=== PATIENT | male | born 1935 | race Caucasian/White ===

== ENCOUNTER 2017-04-29 12:08 | Inpatient (IN) ==
[2017-04-29] MEDS ORDERED: CEFEPIME 1 GM in NS 100 ML IV ONE (13:51)
[2017-04-29] MEDS ORDERED: NS 1,000 ML IV ONE (13:51)
--- NOTE | 2017-04-29 14:04 | Emergency Department Report ---
Male Urogenital HPI - General Chief complaint: Medical Emergency Stated complaint: testical pain Time Seen by Provider: 04/29/17 13:31 Source: family, EMS, RN notes reviewed, old records reviewed Mode of arrival: EMS Limitations: altered mental status (S/p CVA) - History of Present Illness HPI Narrative: 81yo man presented to the ER for testicular pain and bleeding. Pt is s/p CVA; has been declining recently and c/o testicular pain. Today, KRISTINE panicked when she saw a large, spreading 'pool of blood' under pt. She called EMS and pt was transported to the ER for evaluation. WOP and daughter both state that pt has become increasing more difficult to understand over the last few days. MD Complaint: testicle pain, testicle swelling Onset (ago): day(s) Duration: constant Location: left testicle Severity: severe Quality: sharp Relieving factors: none Exacerbating factors: movement - Related Data Sexually active: No Home Medications Medication Instructions Recorded Confirmed Docusate Calcium 240 mg PO BID #0 12/07/11 04/29/17 Omeprazole Magnesium [Prilosec Otc] 20 mg PO DAILY #0 12/07/11 04/29/17 Calcium Polycarbophil [Fiber Lax] 625 mg PO BID #0 04/16/12 04/29/17 Triamterene/Hydrochlorothiazid 2 tab PO DAILY #0 04/16/12 04/29/17 [Maxzide 37.5 mg-25 mg Tablet] Warfarin Sodium 2 mg PO 5XW #0 12/20/15 04/29/17 Warfarin Sodium 3 mg PO 2XW #0 12/20/15 04/29/17 Amlodipine [Norvasc] 10 mg PO DAILY 04/29/17 04/29/17 Ascorbic Acid [Vitamin C] 1,000 mg PO DAILY 04/29/17 04/29/17 Calcium 500 + D [Os Jose-D 500] 2 tab PO DAILY 04/29/17 04/29/17 Lysine HCl [l-Lysine] 500 mg PO 4XW 04/29/17 04/29/17 Potassium Chloride 10 meq PO DAILY 04/29/17 04/29/17 Tramadol HCl [Ultram] 50 mg PO BID 04/29/17 04/29/17 Allergies Allergy/AdvReac Type Severity Reaction Status Date / Time lisinopril Allergy Unknown Verified 12/20/15 18:19 beclomethasone dipropionate Allergy Unknown Uncoded 12/20/15 18:19 benazepril HCl Allergy Unknown Uncoded 12/20/15 18:19 [place] nuts Allergy Unknown Uncoded 12/20/15 18:19 Chlorpheniramine Polistirex Allergy Unknown Uncoded 12/20/15 18:19 Hydrocodone Polistrx Allergy Unknown Uncoded 12/20/15 18:19 pseudoephedrine HCl Allergy Unknown Uncoded 12/20/15 18:19 tamsulosin HCl Allergy Unknown Uncoded 12/20/15 18:19 Review of Systems Limitations: ROS unobtainable due to patient's medical condition Genitourinary: Reports: as per HPI, testicular pain. Denies: urgency, dysuria, frequency, hematuria, discharge, testicular mass, genital lesions PFSH Patient Stated Medical History Cerebrovascular Accident Yes Hearing Loss Yes Cardiac Arrhythmia Yes: A-FIB Hypertension Yes Clotting Problems Yes: ON COUMADIN Medical History Updates: Hypertension. Constipation. GERD. Atrial fibrillation - Social History Smoking status: Unknown if ever smoked Physical Exam - Limitations Limitations: no limitations - General General appearance: alert, in distress (with movement), cachectic - Normal Exams: Head:: Normocephalic without trauma Eyes:: Pupils are PERRLA w/ EOMI, No scleral icterus, irritation, or foreign bodies noted ENMT:: No facial trauma, nasal exudates, pharyngeal erythema, or exudates are noted Chest/Respirations:: Clear all reddy, with good airflow Cardiovascular:: Regular rate and rhythm, without murmur or gallop Abdomen:: Bowel sounds positive, soft, non-tender Lymphatic:: No lymphadenopathy Musculoskeletal:: No tenderness, or deformity noted Integumentary:: No rashes, hives, or bruising noted Neurological:: Patient is alert - exam: Present: testicular tenderness, scrotal swelling, normal testicular lie , other (1cm defect in pts posterolateral left scrotum.). Absent: normal inspection, urethral discharge - Psychiatric Psychiatric exam: Present: flat affect, other (Pt is cooperative, but nonverbal ; moans with any movement) Course - Consultations Consultation #1: Hospitalist: Will admit for observation, rehydration, and dispo planning. Time: 15:00 Vital Signs Temperature 99.8 F 04/29/17 12:10 Pulse Rate 94 04/29/17 12:10 Respiratory Rate 22 04/29/17 12:10 Blood Pressure 156/98 H 04/29/17 12:10 Pulse Oximetry 94 04/29/17 12:10 Temperature 99.8 F 04/29/17 12:10 Pulse Rate 96 04/29/17 14:38 Respiratory Rate 18 04/29/17 13:45 Blood Pressure 157/103 H 04/29/17 14:15 Pulse Oximetry 95 04/29/17 14:38 Urogenital-Male - Differential Diagnosis Likely: urinary tract infection, urethritis, epididymitis, prostatitis, inguinal hernia - Medical Records Attestation: I reviewed the patient's medical records. - Lab Data Attestation: I reviewed the patient's lab results. Result diagrams: 04/29/17 12:34 04/29/17 14:17 Lab Results 04/29/17 04/29/17 Range/Units 12:34 14:17 WBC 10.7 (4.5-11.0) T/MM3 RBC 4.62 (4.50-5.90) M/MM3 Hgb 14.9 (13.5-17.5) GM/DL Hct 48.1 (41-53) % MCV 104.1 H (80-100) UM3 MCH 32.3 (26-34) UUG MCHC 31.0 (31-37) GM/DL RDW Std Deviation 56.6 H (36.9-50.2) FL Plt Count 188 (130-400) T/MM3 MPV 13.5 H (9.4-12.4) UM3 Immature Gran % (Auto) 1.2 H (0.0-0.5) % Neut % (Auto) 82.0 H (33-66) % Lymph % (Auto) 14.4 L (23-45) % [place] % (Auto) 2.2 (0-9.0) % Eos % (Auto) 0.0 (0-4) % Baso % (Auto) 0.2 (0-2) % Neut # (Auto) 8.8 H (1.8-7.7) T/MM3 Lymph # (Auto) 1.5 (1-4.8) T/MM3 [place] # (Auto) 0.2 (0-0.8) T/MM3 Eos # (Auto) 0.0 (0-0.5) T/MM3 Baso # (Auto) 0.0 (0-0.2) T/MM3 Abs Immat Gran (auto) 0.13 H (0.00-0.03) T/MM3 Turbidity < 20 (0-20) Sodium 166 H* (134-144) MEQ/L Potassium 3.0 L (3.6-5) MEQ/L Chloride 123 H (98-107) MEQ/L Carbon Dioxide 24 (22-30) MEQ/L Anion Gap 19 H (5-15) MEQ/L BUN 87.0 H* (9-20) MG/DL Creatinine 2.7 H (0.8-1.5) MG/DL GFR Calculation 23 BUN/Creatinine Ratio 32 H (6-26) RATIO Glucose 114 H (75-110) MG/DL Calculated Osmolality 346 H (261-280) MOSM/KG Calcium 9.7 (8.4-10.2) MG/DL Icterus Index < 2 (0-7) Troponin I 0.077 (0-0.12) ng/ml Plasma Lactate 2.2 (0.6-2.2) MMOL/L Specimen Hemolysis < 15 (0-25) - Radiology Data Attestation: I reviewed the patient's radiology results. CT Head: IMPRESSION: No acute intracranial abnormality or hemorrhage. CXR: IMPRESSION: No acute cardiopulmonary abnormality. - EKG Data EKG #1 EKG attestation: Yes: I reviewed and interpreted this EKG. Rate: tachycardia Rhythm: A.Fib [place]/QRS: left axis deviation Interpretation: nonspecific ST-T wave changes Disposition Clinical Impression: Dehydration Open wound of scrotum Qualifiers: Encounter type: initial encounter Qualified Code(s): S31.30XA - Unspecified open wound of scrotum and testes, initial encounter Disposition: [facility] [place] Print Language: Ukrainian Condition: Stable Prescriptions: No Action Omeprazole Magnesium [Prilosec Otc] 20 mg PO DAILY #0 Triamterene/Hydrochlorothiazid [Maxzide 37.5 mg-25 mg Tablet] 2 tab PO DAILY #0 Warfarin Sodium 3 mg PO 2XW #0 Tramadol HCl [Ultram] 50 mg PO BID Calcium 500 + D [Os Jose-D 500] 2 tab PO DAILY Potassium Chloride 10 meq PO DAILY Docusate Calcium 240 mg PO BID #0 Calcium Polycarbophil [Fiber Lax] 625 mg PO BID #0 Warfarin Sodium 2 mg PO 5XW #0 Amlodipine [Norvasc] 10 mg PO DAILY Ascorbic Acid [Vitamin C] 1,000 mg PO DAILY Lysine HCl [l-Lysine] 500 mg PO 4XW Referrals: Robert Billings MD [Family Provider] - Time of Disposition: 15:08 - Seen By: physician
[2017-04-29] MEDS: SALINE FLUSH 10ml SYRINGE IVF PRN (14:15)
--- NOTE | 2017-04-29 14:44 | XRay Report ---
Indication: Tachycardia PROCEDURE: XR chest 1V: Encounter: Initial Comparison: October 21, 2013 FINDINGS: The lungs are clear. There is no abnormal airspace opacity, pleural effusion or pneumothorax identified. The heart size, pulmonary vasculature and mediastinum are within normal limits. IMPRESSION: No acute cardiopulmonary abnormality. .
--- NOTE | 2017-04-29 14:44 | CT Scan Report ---
Indication: AMS PROCEDURE: CT head/brain wo con: Encounter: Initial Comparison: October 21, 2013 Technique: Axial CT images through the head were performed without contrast. Iterative Reconstruction dose reducing technique was utilized. FINDINGS: Moderate generalized atrophy. The ventricles are stable. There are scattered areas of low attenuation in the white matter which most likely represent changes from chronic microvascular ischemia. The brainstem, cerebellum, and cerebral hemispheres otherwise have a normal morphology and CT attenuation. There is no evidence of midline displacement. No hemorrhage, signs of acute territorial stroke, mass effect, mass lesions, or edema is evident. The visualized portions of the skull base, midface, and calvarium demonstrate no abnormality. The paranasal sinuses are well aerated and free of significant disease. The tympanic and mastoid cavities appear normal. IMPRESSION: No acute intracranial abnormality or hemorrhage. .
[2017-04-29] MEDS: 1/2 NS 1,000 ML IV SCH ×3 (15:08→16:51)
--- NOTE | 2017-04-29 16:00 | History & Physical Report ---
History of Present Illness Date: 04/29/17 Chief complaint: testicular pain and bleeding HPI: "Silvia" is an 81-year-old male who resides at home with his here in [place]. He was brought into the emergency room by EMS today because his found a "pool of blood" underneath him. She states he's been "lethargic" and in bed for the past 6 days or so. She reports he never had any nausea or vomiting or cough, so she didn't think he needed medical attention. He has not been eating or drinking much. She states he's been complaining of testicular pain for "quite a while." This is the first time she's noted blood. She reports that she herself has fallen several times over the past several days, so she's been in bed the past few days as well. Their daughter, Kala Montilla, lives in [place] and is their DPOA-H. She contributes to the history as well. She has seen a progressive decline over the last 6-9 months. Patient had a stroke in November 2011 at which time he was also diagnosed with atrial fibrillation. and daughter both state over the past 6-9 months he's had more issues with not being able to come up with the words he wants to use and this is very frustrating to him. Over the past several days his speech has become harder to understand. Review of Systems ROS unobtainable: due to mental status Review of systems: He does moan when moved and especially with scrotal examination. Past Medical History Past medical history Hypertension CVA 11/2011 Atrial fibrillation Hyperlipidemia GERD Surgical History: Inguinal herniorrhaphy 2, cataracts bilateral Family History: Father- in his 70s of a CVA Mother- in her 70s of a ruptured aorta Family History Updates: Updated - Social History Smoking status: Never smoker Substance use type: does not use Alcohol intake frequency: does not drink Housing: house Household members: spouse Current occupational status: retired Social history: Dr. Billings-PCP Medications Home Medications Medication Instructions Recorded Confirmed Type Docusate Calcium 240 mg PO BID #0 12/07/11 04/29/17 History Omeprazole Magnesium [Prilosec Otc] 20 mg PO DAILY #0 12/07/11 04/29/17 History Calcium Polycarbophil [Fiber Lax] 625 mg PO BID #0 04/16/12 04/29/17 History Triamterene/Hydrochlorothiazid 2 tab PO DAILY #0 04/16/12 04/29/17 History [Maxzide 37.5 mg-25 mg Tablet] Warfarin Sodium 2 mg PO 5XW #0 12/20/15 04/29/17 History Warfarin Sodium 3 mg PO 2XW #0 12/20/15 04/29/17 History Amlodipine [Norvasc] 10 mg PO DAILY 04/29/17 04/29/17 History Ascorbic Acid [Vitamin C] 1,000 mg PO DAILY 04/29/17 04/29/17 History Calcium 500 + D [Os Jose-D 500] 2 tab PO DAILY 04/29/17 04/29/17 History Lysine HCl [l-Lysine] 500 mg PO 4XW 04/29/17 04/29/17 History Potassium Chloride 10 meq PO DAILY 04/29/17 04/29/17 History Tramadol HCl [Ultram] 50 mg PO BID 04/29/17 04/29/17 History Allergies Allergy/AdvReac Type Severity Reaction Status Date / Time beclomethasone Allergy Unknown Verified 04/29/17 16:33 [From Vancenase] benazepril [From Lotensin] Allergy Unknown Verified 04/29/17 16:33 chlorpheniramine Allergy Unknown Verified 04/29/17 16:34 [From Tussionex] hydrocodone [From Tussionex] Allergy Unknown Verified 04/29/17 16:34 lisinopril Allergy Unknown Verified 04/29/17 16:34 tamsulosin [From Flomax] Allergy Unknown Verified 04/29/17 16:33 beclomethasone dipropionate Allergy Unknown Uncoded 12/20/15 18:19 benazepril HCl Allergy Unknown Uncoded 12/20/15 18:19 [place] nuts Allergy Unknown Uncoded 12/20/15 18:19 Chlorpheniramine Polistirex Allergy Unknown Uncoded 12/20/15 18:19 Hydrocodone Polistrx Allergy Unknown Uncoded 12/20/15 18:19 pseudoephedrine HCl Allergy Unknown Uncoded 12/20/15 18:19 tamsulosin HCl Allergy Unknown Uncoded 12/20/15 18:19 Exam Vital Signs: Temperature 99.8 F 04/29/17 12:10 Pulse Rate 96 04/29/17 14:38 Respiratory Rate 18 04/29/17 13:45 Blood Pressure 157/103 H 04/29/17 14:15 Pulse Oximetry 95 04/29/17 14:38 - Constitutional Present: thin, cachectic, disheveled, cooperative, obtunded - Routine HEENT Exam Head: Present: normocephalic, atraumatic Eye: Present: PERRL. Absent: periorbital swelling ENT: Present: mucous membranes dry. Absent: dentition normal (poor dentition) Comments: Exudates to the roof of the mouth secondary to poor oral hygiene patient is very hard of hearing - Routine Neck Exam Present: supple. Absent: lymphadenopathy, thyromegaly - Routine Respiratory Exam Present: CTA bilaterally. Absent: wheezes - Routine Cardiovascular Exam Present: irregular rhythm. Absent: murmur - Routine Abdominal Exam Present: soft, normoactive bowel sounds, non distended, hernia (left lower quadrant). Absent: tenderness - Routine Exam Scrotal: Present: swelling, tenderness Comments: Left testicle is palpable and appears normal size without significant tenderness. Right testicle is at least quadruple the size of the left testicle. Cannot delineate testicle separate from the larger area of swelling. There is significant erythema, tenderness and firmness. Posteriorly on the scrotum he has an approximately 1 cm area of skin breakdown where there is bleeding. There is large amount of stool in this area as well. - Routine Extremities Exam Present: no edema. Absent: cyanosis - Routine Skin Exam Present: dry, warm Comments: Bruise on right knee - Routine Neurological Exam Present: altered mental status. Absent: normal speech (cannot understand speech other than a few words) - Routine Psychiatric Exam Present: cooperative, unable to assess Results - Labs CBC & Chem 7: 04/29/17 12:34 04/29/17 14:17 Labs: Laboratory Tests 04/29/17 14:17 INR > 10.00 H* Laboratory Tests 04/29/17 04/29/17 14:17 14:17 Calculated Osmolality 346 H AST 56 ALT 53 Alkaline Phosphatase 122 Troponin I 0.077 Plasma Lactate 2.2 - Imaging and Cardiology CT scan - head Additional comments: = = = = = = = = = = = = = = = = = = = = = = = = = = = = = = = = = = = = = = = = = = = = = = = = = = = = = = = = = = = Date of Exam: 04/29/17 Ordering Provider: Aiden Maurice DO Type of Exam(s): CT head/brain wo con Reason for Exam(s): AMS Indication: AMS PROCEDURE: CT head/brain wo con: Encounter: Initial Comparison: October 21, 2013 Technique: Axial CT images through the head were performed without contrast. Iterative Reconstruction dose reducing technique was utilized. FINDINGS: Moderate generalized atrophy. The ventricles are stable. There are scattered areas of low attenuation in the white matter which most likely represent changes from chronic microvascular ischemia. The brainstem, cerebellum, and cerebral hemispheres otherwise have a normal morphology and CT attenuation. There is no evidence of midline displacement. No hemorrhage, signs of acute territorial stroke, mass effect, mass lesions, or edema is evident. The visualized portions of the skull base, midface, and calvarium demonstrate no abnormality. The paranasal sinuses are well aerated and free of significant disease. The tympanic and mastoid cavities appear normal. IMPRESSION: No acute intracranial abnormality or hemorrhage. CT scan - abdomen Additional comments: Date of Exam: 04/29/17 Ordering Provider: Aiden Maurice DO Type of Exam(s): XR chest 1V Reason for Exam(s): Tachy Indication: Tachycardia PROCEDURE: XR chest 1V: Encounter: Initial Comparison: October 21, 2013 FINDINGS: The lungs are clear. There is no abnormal airspace opacity, pleural effusion or pneumothorax identified. The heart size, pulmonary vasculature and mediastinum are within normal limits. IMPRESSION: No acute cardiopulmonary abnormality. Assessment and Plan (1) Dehydration Current visit: Yes Status: Acute (2) Open wound of scrotum Current visit: Yes Status: Acute Assessment and Plan: Assessment Possible sepsis given probable testicular source of infection, but is only meeting 1 SIRS criteria on admission of tachycardia. INR is greater than 10, lactate is 2.2. Testicular pain and swelling Dehydration Hypernatremia (sodium 166 on admission) Supratherapeutic INR (>10 on admission) Acute kidney injury-(creatinine 2.7 on admission) Altered mental status CVA 11/30 Atrial fibrillation Hypertension Hyperlipidemia Plan Admit inpatient to the medical floor under the hospitalist service, Dr. Correia attending. It is expected his stay will exceed 2 overnights given his significant dehydration, likelihood of testicular abscess, and general debility. Bailey catheter inserted in ER Testicular sonogram for definitive diagnosis of testicular swelling. Will need uro consult, but will await sono results. Will not proceed with wound culture as there was stool covering the entire wound area. Would defer culture to be taken at time of I&D if this is truly an abscess. First dose of cefepime given an ER. Continue 1 g every 6 hours. Half normal saline started in ER, will continue for rehydration and hypernatremia and acute kidney injury. CT head was performed in the ER for altered mental status. Essentially negative. Patient is on Coumadin for A. fib; however, this will be held given his INR of greater than 10. Vitamin K 10 mg given on admission. Pharmacy to manage Coumadin when it is resumed. Speech consult to determine swallowing status and assist in making dietary recommendations. Patient requests DO NOT RESUSCITATE CODE STATUS Care to return to Dr. Billings upon dismissal. DVT Prophylaxis: SCD's, Coumadin Resuscitation Status: Do Not Resuscitate - Physician Narrative Physician: Joe Correia MD Narrative: Date: 04/29/17 Time: 1904 Have independently interviewed and examined pt. Chart reviewed. Case discussed with ED physician and my PA. Care plan developed with my supervision; agree with above. Present to ED secondary to bloody area in groin. Apparently not been eating/ drinking for several days. Hx of prior stroke; on Coumadin due to afib. Patient resting in bed-will awaken, but speech is very garbled and pt not able to communicate well at this time. Significant sodium elevation-pt appears very dehydrated. INR elevated at above 10. Lungs: decreased. CV: irregularly irregular AB: soft nt/nd BS present. GEN: appears very tired and weak. Plan: Inpatient admission. IVF of 1/2NS to help hydration and normalize sodium. Will have patient NPO overnight until speech can evaluate swallow function. Will start cefepime for antimicrobial coverage. Check testicular US. Vit K as INR +10 - monitor INR. Overall prognosis appear very poor. Hospital Course Summary Disclaimer: The visit summary below is not to be considered part of the above Progress Note. Hospital Course: Assessment Possible sepsis given probable testicular source of infection, but is only meeting 1 SIRS criteria on admission of tachycardia. INR is greater than 10, lactate is 2.2. Testicular pain and swelling Dehydration Hypernatremia (sodium 166 on admission) Supratherapeutic INR (>10 on admission) Acute kidney injury-(creatinine 2.7 on admission) Altered mental status CVA 11/30 Atrial fibrillation Hypertension Hyperlipidemia 04/29/16 hospital admission Admit inpatient to the medical floor under the hospitalist service, Dr. Correia attending. It is expected his stay will exceed 2 overnights given his significant dehydration, likelihood of testicular abscess, and general debility. Bailey catheter inserted in ER Testicular sonogram for definitive diagnosis of testicular swelling. Will need uro consult, but will await sono results. Will not proceed with wound culture as there was stool covering the entire wound area. Would defer culture to be taken at time of I&D if this is truly an abscess. First dose of cefepime given an ER. Continue 1 g every 6 hours. Half normal saline started in ER, will continue for rehydration and hypernatremia and acute kidney injury. CT head was performed in the ER for altered mental status. Essentially negative. Patient is on Coumadin for A. fib; however, this will be held given his INR of greater than 10. Vitamin K 10 mg given on admission. Pharmacy to manage Coumadin when it is resumed. Speech consult to determine swallowing status and assist in making dietary recommendations. Patient requests DO NOT RESUSCITATE CODE STATUS Care to return to Dr. Billings upon dismissal.
[2017-04-29] MEDS ORDERED: PHYTONADIONE 5 MG/2.5 ML ORAL LIQUID PO ONE (16:04)
[2017-04-29] MEDS ORDERED: PHYTONADIONE 10mg/ml (Adult) INJECTION IM ONE (16:32)
[2017-04-29] MEDS ORDERED: PHYTONADIONE 10mg/ml (Adult) INJECTION SQ ONE (16:48)
[2017-04-29] MEDS: CEFEPIME 1 GM in NS 100 ML IV SCH (21:36)
[2017-04-30] MEDS: MORPHINE SULFATE 10 MG SYRINGE IV PRN ×3 (01:38→15:46)
[2017-04-30] MEDS: SALINE FLUSH 10ml SYRINGE IVF PRN (02:26)
[2017-04-30] MEDS: 1/2 NS 1,000 ML IV SCH ×2 (02:58→14:58)
[2017-04-30] MEDS: CEFEPIME 1 GM in NS 100 ML IV SCH ×2 (02:58→15:00)
[2017-04-30] MEDS ORDERED: PHYTONADIONE 10mg/ml (Adult) INJECTION IVP ONE (08:24)
[2017-04-30] MEDS ORDERED: PHYTONADIONE 5 MG in NS 50 ML IV ONE (09:00)
[2017-04-30] MEDS: LIDOCAINE 5% PATCH TOP SCH (09:54)
--- NOTE | 2017-04-30 10:00 | Ultrasound Report ---
Indication: ? abscess PROCEDURE: US scrotum: Encounter: Initial Comparison: None FINDINGS: Both testicles are present in expected location. The testicles demonstrate a homogenous echotexture without intratesticular mass. The right testicle measures 4.5 x 2.4 x 3.4 cm, and the left testicle measures 4.9 x 2.4 x 4 cm. Color Doppler imaging demonstrates increased arterial flow to the right testicle. Normal pulsed Doppler arterial and venous waveforms were obtained from the left testicle. Right epididymis is hyperemic. Left epididymal head appears normal. There is a large hypoechoic abscess in the right scrotum measuring 6.6 x 5.9 x 6.1 cm in size with increased peripheral Doppler flow. IMPRESSION: 1. Large right scrotal abscess. 2. Right epididymoorchitis. .
--- NOTE | 2017-04-30 11:08 | Urology Consult Note ---
Urology HPI - Data of Consult Patient: new to practice Consult date: 04/30/17 Requesting Physician: Joe Correia MD Primary Care Provider: Robert Billings MD Family Provider: Robert Billings MD - Consult Narrative Reason for consult: Right scrotal abscess History of present illness: 81M ,multiple medical comorbidities , admitted for worsening mental status and a right scrotal abscess. Fu=[id number]. INR>10. Due to mental status, unable to get history from the patient. No family present. [facility] Patient Stated Medical History Cerebrovascular Accident Yes Cataracts Yes: SHIVA Hearing Loss Yes: hearing aids both ears Other HEENT Yes: wears glasses Cardiac Arrhythmia Yes: A-FIB Hypertension Yes Gastroesophageal Reflux Yes Disease Hiatal Hernia Yes Clotting Problems Yes: ON COUMADIN Osteoarthritis Yes Medical History Updates: Hypertension. Constipation. GERD. Atrial fibrillation Surgical History: Inguinal herniorrhaphy 2, cataracts bilateral - Social History Smoking status: Never smoker Medications Home Medications Medication Instructions Recorded Confirmed Type Docusate Calcium 240 mg PO BID #0 12/07/11 04/29/17 History Omeprazole Magnesium [Prilosec Otc] 20 mg PO DAILY #0 12/07/11 04/29/17 History Calcium Polycarbophil [Fiber Lax] 625 mg PO BID #0 04/16/12 04/29/17 History Triamterene/Hydrochlorothiazid 2 tab PO DAILY #0 04/16/12 04/29/17 History [Maxzide 37.5 mg-25 mg Tablet] Warfarin Sodium 2 mg PO 5XW #0 12/20/15 04/29/17 History Warfarin Sodium 3 mg PO 2XW #0 12/20/15 04/29/17 History Amlodipine [Norvasc] 10 mg PO DAILY 04/29/17 04/29/17 History Ascorbic Acid [Vitamin C] 1,000 mg PO DAILY 04/29/17 04/29/17 History Calcium 500 + D [Os Jose-D 500] 2 tab PO DAILY 04/29/17 04/29/17 History Lysine HCl [l-Lysine] 500 mg PO 4XW 04/29/17 04/29/17 History Potassium Chloride 10 meq PO DAILY 04/29/17 04/29/17 History Tramadol HCl [Ultram] 50 mg PO BID 04/29/17 04/29/17 History Allergies Allergy/AdvReac Type Severity Reaction Status Date / Time beclomethasone Allergy Unknown Verified 04/29/17 16:33 [From Vancenase] benazepril [From Lotensin] Allergy Unknown Verified 04/29/17 16:33 chlorpheniramine Allergy Unknown Verified 04/29/17 16:34 [From Tussionex] hydrocodone [From Tussionex] Allergy Unknown Verified 04/29/17 16:34 lisinopril Allergy Unknown Verified 04/29/17 16:34 tamsulosin [From Flomax] Allergy Unknown Verified 04/29/17 16:33 beclomethasone dipropionate Allergy Unknown Uncoded 12/20/15 18:19 benazepril HCl Allergy Unknown Uncoded 12/20/15 18:19 [place] nuts Allergy Unknown Uncoded 12/20/15 18:19 Chlorpheniramine Polistirex Allergy Unknown Uncoded 12/20/15 18:19 Hydrocodone Polistrx Allergy Unknown Uncoded 12/20/15 18:19 pseudoephedrine HCl Allergy Unknown Uncoded 12/20/15 18:19 tamsulosin HCl Allergy Unknown Uncoded 12/20/15 18:19 Urology Results - Labs CBC & Chem 7: 04/30/17 04:24 04/30/17 04:24 Labs: Short CBC 04/30/17 Range/Units 04:24 WBC 10.8 (4.5-11.0) T/MM3 Hgb 12.8 L D (13.5-17.5) GM/DL Hct 39.9 L D (41-53) % Plt Count 141 (130-400) T/MM3 BMP 04/30/17 04:24 Sodium 163 H* Potassium 3.0 L Chloride 124 H Carbon Dioxide 22 BUN 87.0 H* Creatinine 2.3 H D Glucose 102 Calcium 8.8 D Urine 04/30/17 Range/Units 10:54 Urine Color Yellow (YELLOW) Urine Clarity Sl cloudy Urine pH 5.5 (5.0-8.0) Ur Specific [place] 1.020 (1.015-1.025) Urine Protein Trace A (NEGATIVE) Urine Glucose (UA) Negative (NEGATIVE) Urology Exam Vital signs: Temperature 95.4 F L 04/30/17 08:00 Pulse Rate 73 04/30/17 08:00 Respiratory Rate 22 04/30/17 08:00 Blood Pressure 153/87 H 04/30/17 08:00 Pulse Oximetry 96 04/30/17 08:00 - Constitutional thin, cachectic - HEENT Exam Head: Present: normocephalic - Respiratory Exam Absent: respiratory distress - Cardiovascular Exam Present: RRR - Abdominal/Groin Exam Present: soft - Exam Comments: dewitt in place with CYU Right scrotal abscess. Minimal purulent drainage. no signs of ye's gangrene Assessment and Plan 81M , multiple comorbiditie, Right scrotal abscess. No signs of ye's on PE. Plan: - Rec CT to r/o gangrene and study extent of the abscess. If CT ok, will wait until medical issues are stabilized and plan for I&D of R scrotal abscess in OR next friday. Hospital Course Summary Disclaimer: The visit summary below is not to be considered part of the above Progress Note. Hospital Course: Assessment Possible sepsis given probable testicular source of infection, but is only meeting 1 SIRS criteria on admission of tachycardia. INR is greater than 10, lactate is 2.2. Testicular pain and swelling Dehydration Hypernatremia (sodium 166 on admission) Supratherapeutic INR (>10 on admission) Acute kidney injury-(creatinine 2.7 on admission) Altered mental status CVA 11/30 Atrial fibrillation Hypertension Hyperlipidemia 04/29/16 hospital admission Admit inpatient to the medical floor under the hospitalist service, Dr. Correia attending. It is expected his stay will exceed 2 overnights given his significant dehydration, likelihood of testicular abscess, and general debility. Dewitt catheter inserted in ER Testicular sonogram for definitive diagnosis of testicular swelling. Will need uro consult, but will await sono results. Will not proceed with wound culture as there was stool covering the entire wound area. Would defer culture to be taken at time of I&D if this is truly an abscess. First dose of cefepime given an ER. Continue 1 g every 6 hours. Half normal saline started in ER, will continue for rehydration and hypernatremia and acute kidney injury. CT head was performed in the ER for altered mental status. Essentially negative. Patient is on Coumadin for A. fib; however, this will be held given his INR of greater than 10. Vitamin K 10 mg given on admission. Pharmacy to manage Coumadin when it is resumed. Speech consult to determine swallowing status and assist in making dietary recommendations. Patient requests DO NOT RESUSCITATE CODE STATUS Care to return to Dr. Billings upon dismissal.
--- NOTE | 2017-04-30 11:25 | Progress Note ---
- Date 04/30/17 Subjective: F/U: Scrotal abscess, Hypernatremia, severe dehydration. Resting in bed. Will arouse to verbal stimuli and attempt to communicate but speech very garbled. Hard for him to communicate his needs. Will move arms spontaneously. Maintaining saturation on RA. Objective Vital signs: Temperature 95.4 F L 04/30/17 08:00 Pulse Rate 73 04/30/17 08:00 Respiratory Rate 22 04/30/17 08:00 Blood Pressure 153/87 H 04/30/17 08:00 Pulse Oximetry 96 04/30/17 08:00 Height/Weight/BMI: Height 1.83 m Weight 66 kg Body Mass Index 19.5 - Constitutional Present: well developed, thin - Routine HEENT Exam Head: Present: normocephalic, atraumatic Eye: Present: EOMI, PERRL ENT: Present: mucous membranes dry - Routine Respiratory Exam Present: decreased breath sounds. Absent: rales, respiratory distress, rhonchi , wheezes, crackles - Routine Cardiovascular Exam Present: irregular rhythm, irregularly irregular - Routine Abdominal Exam Present: soft, normoactive bowel sounds, non distended, non tender. Absent: guarding - Routine Exam Comments: Bailey present - Routine Extremities Exam Present: no edema, pulses intact. Absent: cyanosis, clubbing - Routine Skin Exam Present: warm - Routine Neurological Exam Present: moving all extremities, vision grossly intact, hearing grossly intact. Absent: normal speech - Routine Psychiatric Exam Present: unable to assess Results - Labs CBC & Chem 7: 04/30/17 04:24 04/30/17 04:24 Assessment and Plan (1) Scrotal abscess Current visit: Yes Status: Acute (2) Open wound of scrotum Current visit: Yes Status: Acute (3) Hypernatremia Current visit: Yes Status: Acute (4) Dehydration Current visit: Yes Status: Acute Assessment and Plan: Assessment Scrotal abscess (right) - Testicular pain and swelling secondary Right epididymoorchitis Dehydration Hypernatremia (POA) - sodium 166 on admission Supratherapeutic INR (POA) - INR >10 on admission Acute kidney injury (POA) - creatinine 2.7 on admission Hypokalemia (POA) Altered mental status CVA 11/30 Atrial fibrillation Hypertension Hyperlipidemia Stage III CKD Generalized debility Plan Testicular sono showing abscess on right side - consult placed with Dr Rojas for evaluation and drainage. Obtain CT to exclude extension of abscess. Continue with cefepime for antimicrobial coverage. Sodium with gradual decrease to 163. Creatinine with decrease to 2.3. Continue 1/2NS at 100 cc/hr for hydration and to normalize sodium. INR with decrease to 7.3 - Vitamin K 5mg x1. Coumadin not restarted due to elevated INR. Daily INRs. Speech to check swallow function. Recheck BMP in am secondary to hypernatremia and NIKKO. Will recheck CBC in am due to scrotal abscess. Case discussed with CM and Dr Rojas. Time spent with patient care 25 minutes. DVT Prophylaxis: Coumadin Resuscitation Status: Do Not Resuscitate - Time spent with patient Time with patient PN: 25 minutes - Physician Narrative Physician: Joe Correia MD Narrative: Date: 04/30/17 Time: 1121 Hospital Course Summary Disclaimer: The visit summary below is not to be considered part of the above Progress Note. Hospital Course: 04/29/16 hospital admission Admit inpatient to the medical floor under the hospitalist service, Dr. Correia attending. It is expected his stay will exceed 2 overnights given his significant dehydration, likelihood of testicular abscess, and general debility. Bailey catheter inserted in ER secondary to acute kidney injury. Testicular sonogram for definitive diagnosis of testicular swelling. Will need uro consult, but will await sono results. Will not proceed with wound culture as there was stool covering the entire wound area. Would defer culture to be taken at time of I&D if this is truly an abscess. First dose of cefepime given an ER. Continue 1 g every 6 hours. Half normal saline started in ER, will continue for rehydration and hypernatremia and acute kidney injury. CT head was performed in the ER for altered mental status. Essentially negative. Patient is on Coumadin for A. fib; however, this will be held given his INR of greater than 10. Vitamin K 10 mg given on admission. Pharmacy to manage Coumadin when it is resumed. Speech consult to determine swallowing status and assist in making dietary recommendations. Patient requests DO NOT RESUSCITATE CODE STATUS Care to return to Dr. Billings upon dismissal. 04/30/17 Testicular sono showing abscess on right side - consult placed with Dr Rojas for evaluation and drainage. Obtain CT to exclude extension of abscess. Continue with cefepime for antimicrobial coverage. Sodium with gradual decrease to 163. Creatinine with decrease to 2.3. Continue 1/2NS at 100 cc/hr for hydration and to normalize sodium. INR with decrease to 7.3 - Vitamin K 5mg x1. Coumadin not restarted due to elevated INR. Daily INRs. Speech to check swallow function. Recheck BMP in am secondary to hypernatremia and NIKKO. Will recheck CBC in am due to scrotal abscess.
--- NOTE | 2017-04-30 12:12 | CT Scan Report ---
Indication: Right scrotal abscess - PROCEDURE: CT pelvis wo con: Encounter: Initial Comparison: Scrotal ultrasound from early today Technique: Axial noncontrast CT imaging through the pelvis with coronal and sagittal two-dimensional reformats. Automated Exposure Control and Iterative Reconstruction dose reducing techniques were utilized. Findings: Atherosclerotic plaque in the abdominal aorta and its major branches. Large rectal stool ball measuring over 9 cm in diameter. Bailey catheter within the bladder which also contains some gas. The visualized loops of small and large bowel in the pelvis show no acute findings. Left colonic diverticulosis. Bone windows show degenerative change in the lower lumbar spine. There is scrotal skin thickening and fluid corresponding to the abscess noted and better evaluated on the scrotal ultrasound. There is some inflammation and stranding tracking along the right spermatic cord in the inguinal canal. There is no gas seen within the perineal soft tissues to suggest Joshua's gangrene. No abscess seen apart from the scrotum. Impression: Scrotal abscess, better seen on ultrasound. No CT evidence to suggest necrotizing fasciitis/Joshua's gangrene. .
[2017-04-30] MEDS: CLOTRIMAZOLE 10 MG TROCHE MM SCH ×3 (15:44→21:56)
--- NOTE | 2017-04-30 16:04 | Wound Care Progress Note ---
Wound Management - Patient Status Premedicated Prior to Dressing Change: No - Wound Posterior Scrotum Wound Type: Open Wound Wound Present on Admission?: Yes Length: 1.5 Width: 1.8 Wound Bed Appearance: Slough [place] Wound Appearance: Edematous, Indurated Tunneling: No Undermining: No Drainage Description: Sanguineous Drainage Amount: Small Drainage Odor: No Odor Dressing Status: Changed Primary Dressing: Silver Dressing Secondary Dressing: Absorbant Pad Dressing Change Date: 04/30/17 Dressing Change Time: 13:53 Dressing Change Patient Tolerance: Tolerated Well
--- NOTE | 2017-04-30 16:08 | Wound Care Progress Note ---
Wound Center Progress Note: Pt seen for wound followup. Pt lying in bed, family at bedside, no complaints of pain. Pt has wound to posterior aspect of scrotum, small sanguineous drainage , red non-granulating and slough in wound bed. Periwound: erythema, induration. Family states wound is probably a week old; found pt in bed "with lots of blood on the sheets." Pt has dewitt to DD, normally he is continent. To posterior scrotum: Aquacel Ag to wound bed, cover with ABD pad, change q 3 days. Pt will have an I&D on Friday with Dr. Fernandes.
[2017-04-30] MEDS ORDERED: FALL RISK - PHARMACY CONSULT XX ONE (17:12)
[2017-04-30] MEDS: LIDOCAINE PATCH REMOVAL TOP SCH (21:56)
[2017-05-01] MEDS: 1/2 NS 1,000 ML IV SCH ×3 (02:03→13:17)
[2017-05-01] MEDS: CEFEPIME 1 GM in NS 100 ML IV SCH ×3 (03:30→22:12)
[2017-05-01] MEDS: LIDOCAINE 5% PATCH TOP SCH (10:13)
[2017-05-01] MEDS: CLOTRIMAZOLE 10 MG TROCHE MM SCH ×5 (10:14→22:12)
--- NOTE | 2017-05-01 11:53 | Progress Note ---
- Date 05/01/17 Subjective: F/U: Scrotal abscess, Hypernatremia, severe dehydration. Resting in bed. Will awaken to verbal stimuli, but returns to sleep readily. Speech difficult to understand-garbled. at bedside and case discussed with her. Objective Vital signs: Temperature 97.5 F 05/01/17 10:12 Pulse Rate 73 05/01/17 10:12 Respiratory Rate 20 05/01/17 08:00 Blood Pressure 136/79 05/01/17 10:12 Pulse Oximetry 97 05/01/17 10:12 Height/Weight/BMI: Height 1.83 m Weight 66.2 kg Body Mass Index 19.5 - Constitutional Present: well developed, thin, somnolent. Absent: agitated - Routine HEENT Exam Head: Present: normocephalic, atraumatic Eye: Present: EOMI, PERRL ENT: Present: mucous membranes dry - Routine Respiratory Exam Present: decreased breath sounds. Absent: rales, respiratory distress, rhonchi , wheezes, crackles - Routine Cardiovascular Exam Present: RRR, no murmur - Routine Abdominal Exam Present: soft, normoactive bowel sounds. Absent: non distended, non tender - Routine Exam Comments: Bailey present - Routine Extremities Exam Present: pulses intact. Absent: cyanosis, clubbing - Routine Musculoskeletal Exam Musculoskeletal: Present: no clubbing or cyanosis - Routine Skin Exam Present: dry, warm - Routine Neurological Exam Present: hearing grossly intact. Absent: normal speech - Routine Psychiatric Exam Absent: anxious, agitated Results - Labs CBC & Chem 7: 05/01/17 05:16 05/01/17 05:17 Assessment and Plan (1) Scrotal abscess Current visit: Yes Status: Acute (2) Open wound of scrotum Current visit: Yes Status: Acute (3) Hypernatremia Current visit: Yes Status: Acute (4) Dehydration Current visit: Yes Status: Acute Assessment and Plan: Assessment Scrotal abscess (right) - Testicular pain and swelling secondary Right epididymoorchitis Dehydration Hypernatremia (POA) - sodium 166 on admission Supratherapeutic INR (POA) - INR >10 on admission Acute kidney injury (POA) - creatinine 2.7 on admission Hypokalemia (POA) Altered mental status CVA 11/30 Atrial fibrillation Hypertension Hyperlipidemia Stage III CKD Generalized debility Plan Sodium with gradual decrease to 161 with potassium 3.2. Creatinine improved to 1.8. Mentation and oral drive still diminished. Working with Speech-therapeutic NPO recommended. With sodium elevated, patient not ready to work with PT/OT yet. INR decreased to 1.44. Will hold on restarting Coumadin as planning I/D of scrotal abscess on 05/05. Wound team recommending Aquacel AG covered with ABD pad. Continue with cefepime for antimicrobial coverage. Continue 1/2NS, but add 20mEq KCl as potassium decreased. Discussed with about patients status. Hope to see functional improvements once sodium normalized and abscess resolved. Uncertain if swallow function will return. Discussed about Feeding Tube, but too early to make decision about this now. Asked to think about his wishes for feeding tube if swallow function not improving once acute needs resolved. Recheck BMP in am secondary to hypernatremia and NIKKO. Will recheck CBC in am due to scrotal abscess. Case discussed with CM and patient's . Time spent with patient care 25 minutes. DVT Prophylaxis: SCD's Resuscitation Status: Do Not Resuscitate - Time spent with patient Time with patient PN: 25 minutes - Physician Narrative Physician: Joe Correia MD Narrative: Date: 05/01/17 Time: 1150 Hospital Course Summary Disclaimer: The visit summary below is not to be considered part of the above Progress Note. Hospital Course: 04/29/16 hospital admission Admit inpatient to the medical floor under the hospitalist service, Dr. Correia attending. It is expected his stay will exceed 2 overnights given his significant dehydration, likelihood of testicular abscess, and general debility. Bailey catheter inserted in ER secondary to acute kidney injury. Testicular sonogram for definitive diagnosis of testicular swelling. Will need urological consult, but will await sono results. Will not proceed with wound culture as there was stool covering the entire wound area. Would defer culture to be taken at time of I&D if this is truly an abscess. First dose of cefepime given an ER. Continue 1 g every 6 hours. Half normal saline started in ER, will continue for rehydration and hypernatremia and acute kidney injury. CT head was performed in the ER for altered mental status. Essentially negative. Patient is on Coumadin for A. fib; however, this will be held given his INR of greater than 10. Vitamin K 10 mg given on admission. Pharmacy to manage Coumadin when it is resumed. Speech consult to determine swallowing status and assist in making dietary recommendations. Patient requests DO NOT RESUSCITATE CODE STATUS Care to return to Dr. Billings upon dismissal. 04/30/17 Testicular sono showing abscess on right side - consult placed with Dr Rojas for evaluation and drainage. Obtain CT to exclude extension of abscess. Continue with cefepime for antimicrobial coverage. Sodium with gradual decrease to 163. Creatinine with decrease to 2.3. Continue 1/2NS at 100 cc/hr for hydration and to normalize sodium. INR with decrease to 7.3 - Vitamin K 5mg x1. Coumadin not restarted due to elevated INR. Daily INRs. Speech to check swallow function. Recheck BMP in am secondary to hypernatremia and NIKKO. Will recheck CBC in am due to scrotal abscess. 05/01/17 Sodium with gradual decrease to 161 with potassium 3.2. Creatinine improved to 1.8. Mentation and oral drive still diminished. Working with Speech-therapeutic NPO recommended. With sodium elevated, patient not ready to work with PT/OT yet. INR decreased to 1.44. Will hold on restarting Coumadin as planning I/D of scrotal abscess on 05/05. Wound team recommending Aquacel AG covered with ABD pad. Continue with cefepime for antimicrobial coverage. Continue 1/2NS, but add 20mEq KCl as potassium decreased. Discussed with about patients status. Hope to see functional improvements once sodium normalized and abscess resolved. Uncertain if swallow function will return. Discussed about Feeding Tube, but too early to make decision about this now. Asked to think about his wishes for feeding tube if swallow function not improving once acute needs resolved.
[2017-05-01] MEDS: 1/2 NS with KCL 20mEq 1,000 ML IV SCH (13:16)
--- NOTE | 2017-05-01 16:29 | Pharmacy Consult- Renal Dosing ---
Pharamcy Consul-Renal Dosing - Laboratory Information 04/30/17 05/01/17 04:24 05:17 BUN 87.0 H* 79.0 H* Creatinine 2.3 H D 1.8 H D - Consult Information renal dosing: Cefepime Cefepime dose adjusted to Cefepime 1 gm IV Q8H based on renal function. Pharmacy will monitor and adjust as needed. Thank you, Natalee Peck [facility]
[2017-05-01] MEDS: MORPHINE SULFATE 10 MG SYRINGE IV PRN (17:39)
[2017-05-01] MEDS: LIDOCAINE PATCH REMOVAL TOP SCH (22:12)
[2017-05-02] MEDS: MORPHINE SULFATE 10 MG SYRINGE IV PRN ×2 (01:12→18:15)
[2017-05-02] MEDS: 1/2 NS with KCL 20mEq 1,000 ML IV SCH ×2 (02:53→06:12)
[2017-05-02] MEDS: SALINE FLUSH 10ml SYRINGE IVF PRN ×2 (07:53→18:16)
[2017-05-02] MEDS: CEFEPIME 1 GM in NS 100 ML IV SCH ×3 (07:54→21:59)
[2017-05-02] MEDS: LIDOCAINE 5% PATCH TOP SCH (10:07)
[2017-05-02] MEDS: CLOTRIMAZOLE 10 MG TROCHE MM SCH ×5 (10:07→20:01)
[2017-05-02] MEDS: POTASSIUM CHLORIDE INJ 20 MEQ in D5W 1,000 ML IV SCH ×2 (10:08→20:02)
--- NOTE | 2017-05-02 12:01 | Progress Note ---
- Date 05/02/17 Subjective: F/U: Scrotal abscess, Hypernatremia, severe dehydration. Resting in bed. Will open eyes and attempt to converse-gets out a few words. Denies pain. Denies difficulty breathing. WBC normal. Creatinine decreased, but sodium still with elevation. Objective Vital signs: Temperature 97.6 F 05/02/17 08:00 Pulse Rate 79 05/02/17 08:16 Respiratory Rate 16 05/02/17 08:00 Blood Pressure 166/85 H 05/02/17 08:00 Pulse Oximetry 95 05/02/17 08:00 Height/Weight/BMI: Height 1.83 m Weight 66.2 kg Body Mass Index 19.8 - Constitutional Present: well nourished, well developed, thin, somnolent - Routine HEENT Exam Head: Present: normocephalic, atraumatic Eye: Present: EOMI, PERRL ENT: Present: mucous membranes dry - Routine Respiratory Exam Present: decreased breath sounds. Absent: rales, respiratory distress, rhonchi , stridor, wheezes, crackles - Routine Cardiovascular Exam Present: RRR, no murmur - Routine Abdominal Exam Present: soft, normoactive bowel sounds, non distended, non tender. Absent: guarding - Routine Exam Comments: Bailey present - Routine Extremities Exam Present: no edema, pulses intact. Absent: cyanosis, clubbing Comments: SCD in place - Routine Musculoskeletal Exam Musculoskeletal: Present: no clubbing or cyanosis - Routine Skin Exam Present: dry, warm - Routine Neurological Exam Present: hearing grossly intact. Absent: normal speech - Routine Psychiatric Exam Absent: anxious, agitated Results - Labs CBC & Chem 7: 05/02/17 04:10 05/02/17 04:10 Assessment and Plan (1) Scrotal abscess Current visit: Yes Status: Acute (2) Open wound of scrotum Current visit: Yes Status: Acute (3) Hypernatremia Current visit: Yes Status: Acute (4) Dehydration Current visit: Yes Status: Acute Assessment and Plan: Assessment Scrotal abscess (right) - Testicular pain and swelling secondary Right epididymoorchitis Dehydration Hypernatremia (POA) - sodium 166 on admission Supratherapeutic INR (POA) - INR >10 on admission Acute kidney injury (POA) - creatinine 2.7 on admission Hypokalemia (POA) Altered mental status CVA 11/30 Atrial fibrillation Hypertension Hyperlipidemia Stage III CKD Generalized debility Plan Sodium unchanged at 161. Potassium increased to 3.4. Creatinine improved to 1.5. Change IVF to D5W with 20KCL at 100cc/hr to help improve sodium. Continue cefepime for coverage of scrotal abscess - not seeing sighs of systemic process due to abscess. I/D planned on 05/05 by urology. Continue Aquacel AG covered with ABD pad as per wound team. Speech working with swallow. Possible PT/OT in near future once mentation improved. Hope to see improvement in mentation as sodium normalizes. Recheck BMP in am secondary to hypernatremia and NIKKO. Will recheck CBC in am due to scrotal abscess. Case discussed with CM. Time spent with patient care 25 minutes. DVT Prophylaxis: SCD's Resuscitation Status: Do Not Resuscitate - Time spent with patient Time with patient PN: 25 minutes - Physician Narrative Physician: Joe Correia MD Narrative: Date: 05/02/17 Time: 1157 Hospital Course Summary Disclaimer: The visit summary below is not to be considered part of the above Progress Note. Hospital Course: 04/29/16 hospital admission Admit inpatient to the medical floor under the hospitalist service, Dr. Correia attending. It is expected his stay will exceed 2 overnights given his significant dehydration, likelihood of testicular abscess, and general debility. Bailey catheter inserted in ER secondary to acute kidney injury. Testicular sonogram for definitive diagnosis of testicular swelling. Will need urological consult, but will await sono results. Will not proceed with wound culture as there was stool covering the entire wound area. Would defer culture to be taken at time of I&D if this is truly an abscess. First dose of cefepime given an ER. Continue 1 g every 6 hours. Half normal saline started in ER, will continue for rehydration and hypernatremia and acute kidney injury. CT head was performed in the ER for altered mental status. Essentially negative. Patient is on Coumadin for A. fib; however, this will be held given his INR of greater than 10. Vitamin K 10 mg given on admission. Pharmacy to manage Coumadin when it is resumed. Speech consult to determine swallowing status and assist in making dietary recommendations. Patient requests DO NOT RESUSCITATE CODE STATUS Care to return to Dr. Billings upon dismissal. 04/30/17 Testicular sono showing abscess on right side - consult placed with Dr Rojas for evaluation and drainage. Obtain CT to exclude extension of abscess. Continue with cefepime for antimicrobial coverage. Sodium with gradual decrease to 163. Creatinine with decrease to 2.3. Continue 1/2NS at 100 cc/hr for hydration and to normalize sodium. INR with decrease to 7.3 - Vitamin K 5mg x1. Coumadin not restarted due to elevated INR. Daily INRs. Speech to check swallow function. Recheck BMP in am secondary to hypernatremia and NIKKO. Will recheck CBC in am due to scrotal abscess. 05/01/17 Sodium with gradual decrease to 161 with potassium 3.2. Creatinine improved to 1.8. Mentation and oral drive still diminished. Working with Speech-therapeutic NPO recommended. With sodium elevated, patient not ready to work with PT/OT yet. INR decreased to 1.44. Will hold on restarting Coumadin as planning I/D of scrotal abscess on 05/05. Wound team recommending Aquacel AG covered with ABD pad. Continue with cefepime for antimicrobial coverage. Continue 1/2NS, but add 20mEq KCl as potassium decreased. Discussed with about patients status. Hope to see functional improvements once sodium normalized and abscess resolved. Uncertain if swallow function will return. Discussed about Feeding Tube, but too early to make decision about this now. Asked to think about his wishes for feeding tube if swallow function not improving once acute needs resolved. 05/02/17 Sodium unchanged at 161. Potassium increased to 3.4. Creatinine improved to 1.5. Change IVF to D5W with 20KCL at 100cc/hr to help improve sodium. Continue cefepime for coverage of scrotal abscess - not seeing sighs of systemic process due to abscess. I/D planned on 05/05 by urology. Continue Aquacel AG covered with ABD pad as per wound team. Speech working with swallow. Possible PT/OT in near future once mentation improved. Hope to see improvement in mentation as sodium normalizes.
[2017-05-02] MEDS: LIDOCAINE PATCH REMOVAL TOP SCH (20:02)
[2017-05-03] MEDS: MORPHINE SULFATE 10 MG SYRINGE IV PRN (00:04)
[2017-05-03] MEDS: POTASSIUM CHLORIDE INJ 20 MEQ in D5W 1,000 ML IV SCH ×4 (05:08→22:02)
[2017-05-03] MEDS: CEFEPIME 1 GM in NS 100 ML IV SCH ×2 (06:00→16:52)
[2017-05-03] MEDS: CLOTRIMAZOLE 10 MG TROCHE MM SCH ×5 (09:22→20:30)
[2017-05-03] MEDS: LIDOCAINE 5% PATCH TOP SCH (09:22)
[2017-05-03] MEDS ORDERED: ENOXAPARIN 40 MG/0.4 ML INJECTION SQ ONE (11:38)
--- NOTE | 2017-05-03 12:02 | Progress Note ---
- Date 05/03/17 Subjective: F/U: Scrotal abscess, Hypernatremia, severe dehydration. Resting in bed-restless. Not opening eyes or interacting verbally at this time. Daughter at bedside and case was discussed with her. Oral intake has increased. WBC normal, no temp elevations. BP stable. Objective Vital signs: Temperature 96.8 F 05/03/17 07:00 Pulse Rate 62 05/03/17 09:00 Respiratory Rate 18 05/03/17 07:00 Blood Pressure 136/72 05/03/17 07:00 Pulse Oximetry 96 05/02/17 23:47 Height/Weight/BMI: Height 1.83 m Weight 68.2 kg Body Mass Index 19.8 - Constitutional Present: well nourished, well developed, average body habitus, other (Restless ) - Routine HEENT Exam Head: Present: normocephalic, atraumatic ENT: Present: mucous membranes dry - Routine Respiratory Exam Present: CTA bilaterally. Absent: rales, respiratory distress, rhonchi, stridor , wheezes, crackles - Routine Cardiovascular Exam Present: irregular rhythm, irregularly irregular - Routine Abdominal Exam Present: soft, normoactive bowel sounds, non distended, non tender - Routine Exam Comments: Bailey present - Routine Extremities Exam Present: no edema, pulses intact. Absent: cyanosis, clubbing - Routine Musculoskeletal Exam Musculoskeletal: Present: no clubbing or cyanosis - Routine Skin Exam Present: dry, warm - Routine Neurological Exam Present: altered mental status, moving all extremities - Routine Psychiatric Exam Comments: Somnolent Results - Labs CBC & Chem 7: 05/03/17 09:55 05/03/17 09:55 Assessment and Plan (1) Scrotal abscess Current visit: Yes Status: Acute (2) Open wound of scrotum Current visit: Yes Status: Acute (3) Hypernatremia Current visit: Yes Status: Acute (4) Dehydration Current visit: Yes Status: Acute Assessment and Plan: Assessment Scrotal abscess (right) - Testicular pain and swelling secondary Right epididymoorchitis Dehydration Hypernatremia (POA) - sodium 166 on admission Supratherapeutic INR (POA) - INR >10 on admission Acute kidney injury (POA) - creatinine 2.7 on admission; resolved Hypokalemia (POA) - resolved Altered mental status CVA 11/30 Atrial fibrillation Hypertension Hyperlipidemia Stage III CKD Generalized debility Plan Sodium decreased to 154 with potassium improved to 3.6. Creatinine 1.3 this am. WBC 6.3. Continue D5W with 20KCL at 100cc/hr to help improve sodium. Continue cefepime for coverage of scrotal abscess. I/D planned on 05/05 by urology. Continue Aquacel AG covered with ABD pad as per wound team. Will give Lovenox 40mg SQ x1 for DVT prevention. Speech working with swallow-improvement in oral intake noted. With continued encephalopathy, do not feel patient ready for PT/OT at this time. Will check Vitamin B12 secondary to macrocytosis and encephalopathy. Recheck BMP in am secondary to hypernatremia and NIKKO. Will recheck CBC in am due to scrotal abscess. Case discussed with CM and pt's daughter. Time spent with patient care 25 minutes. DVT Prophylaxis: SCD's - Physician Narrative Narrative: Date: 05/03/17 Time: 1159 Hospital Course Summary Disclaimer: The visit summary below is not to be considered part of the above Progress Note. Hospital Course: 04/29/16 hospital admission Admit inpatient to the medical floor under the hospitalist service, Dr. Correia attending. It is expected his stay will exceed 2 overnights given his significant dehydration, likelihood of testicular abscess, and general debility. Bailey catheter inserted in ER secondary to acute kidney injury. Testicular sonogram for definitive diagnosis of testicular swelling. Will need urological consult, but will await sono results. Will not proceed with wound culture as there was stool covering the entire wound area. Would defer culture to be taken at time of I&D if this is truly an abscess. First dose of cefepime given an ER. Continue 1 g every 6 hours. Half normal saline started in ER, will continue for rehydration and hypernatremia and acute kidney injury. CT head was performed in the ER for altered mental status. Essentially negative. Patient is on Coumadin for A. fib; however, this will be held given his INR of greater than 10. Vitamin K 10 mg given on admission. Pharmacy to manage Coumadin when it is resumed. Speech consult to determine swallowing status and assist in making dietary recommendations. Patient requests DO NOT RESUSCITATE CODE STATUS Care to return to Dr. Billings upon dismissal. 04/30/17 Testicular sono showing abscess on right side - consult placed with Dr Rojas for evaluation and drainage. Obtain CT to exclude extension of abscess. Continue with cefepime for antimicrobial coverage. Sodium with gradual decrease to 163. Creatinine with decrease to 2.3. Continue 1/2NS at 100 cc/hr for hydration and to normalize sodium. INR with decrease to 7.3 - Vitamin K 5mg x1. Coumadin not restarted due to elevated INR. Daily INRs. Speech to check swallow function. Recheck BMP in am secondary to hypernatremia and NIKKO. Will recheck CBC in am due to scrotal abscess. 05/01/17 Sodium with gradual decrease to 161 with potassium 3.2. Creatinine improved to 1.8. Mentation and oral drive still diminished. Working with Speech-therapeutic NPO recommended. With sodium elevated, patient not ready to work with PT/OT yet. INR decreased to 1.44. Will hold on restarting Coumadin as planning I/D of scrotal abscess on 05/05. Wound team recommending Aquacel AG covered with ABD pad. Continue with cefepime for antimicrobial coverage. Continue 1/2NS, but add 20mEq KCl as potassium decreased. Discussed with about patients status. Hope to see functional improvements once sodium normalized and abscess resolved. Uncertain if swallow function will return. Discussed about Feeding Tube, but too early to make decision about this now. Asked to think about his wishes for feeding tube if swallow function not improving once acute needs resolved. 05/02/17 Sodium unchanged at 161. Potassium increased to 3.4. Creatinine improved to 1.5. Change IVF to D5W with 20KCL at 100cc/hr to help improve sodium. Continue cefepime for coverage of scrotal abscess - not seeing sighs of systemic process due to abscess. I/D planned on 05/05 by urology. Continue Aquacel AG covered with ABD pad as per wound team. Speech working with swallow. Possible PT/OT in near future once mentation improved. Hope to see improvement in mentation as sodium normalizes. 05/03/17 Sodium decreased to 154 with potassium improved to 3.6. Creatinine 1.3 this am. WBC 6.3. Continue D5W with 20KCL at 100cc/hr to help improve sodium. Continue cefepime for coverage of scrotal abscess. I/D planned on 05/05 by urology. Continue Aquacel AG covered with ABD pad as per wound team. Will give Lovenox 40mg SQ x1 for DVT prevention. Speech working with swallow-improvement in oral intake noted. With continued encephalopathy, do not feel patient ready for PT/OT at this time. Will check Vitamin B12 secondary to macrocytosis and encephalopathy.
[2017-05-03] MEDS: LIDOCAINE PATCH REMOVAL TOP SCH (20:31)
[2017-05-04] MEDS: CEFEPIME 1 GM in NS 100 ML IV SCH ×4 (00:05→23:32)
[2017-05-04] MEDS: NS FLUSH BAG 500ml IV PRN (00:05)
[2017-05-04] MEDS: MORPHINE SULFATE 10 MG SYRINGE IV PRN (01:17)
[2017-05-04] MEDS: POTASSIUM CHLORIDE INJ 20 MEQ in D5W 1,000 ML IV SCH ×4 (03:02→23:22)
[2017-05-04] MEDS: LIDOCAINE 5% PATCH TOP SCH ×2 (10:25→19:22)
[2017-05-04] MEDS: CLOTRIMAZOLE 10 MG TROCHE MM SCH ×6 (10:26→21:22)
--- NOTE | 2017-05-04 14:24 | Progress Note ---
- Date 05/04/17 Subjective: Mr. Barron is seen today in follow up for his scrotal abscess and hypernatremia. He is seen while sleeping and appears sedated on exam with his family at the bedside. He arouses briefly with firm touch and voice stimuli but quickly falls back to sleep. Family expresses concern about the amount of time he is spending sleeping. Current labs and clinical evaluation were discussed with family as well as plan of care. Extensive time was spent answering the family's questions regarding anticipated length of recovery and realistic expectations following the I&D currently scheduled for tomorrow. Family noted that his oral intake has been less today due to his increased sleeping. Urinary output is stable. Hypernatremia improving with sodium continuing to trend down slowly. Objective Vital signs: Temperature 95.6 F L 05/04/17 12:42 Pulse Rate 58 L 05/04/17 12:42 Respiratory Rate 18 05/04/17 12:42 Blood Pressure 153/81 H 05/04/17 12:42 Pulse Oximetry 97 05/04/17 12:42 Height/Weight/BMI: Height 6 ft Weight 151 lb 7.321 oz Body Mass Index 19.8 Comments: patient sleeping on exam; sedated. - Constitutional Present: no acute distress, well nourished, well developed, thin, cooperative - Routine HEENT Exam Head: Present: normocephalic, atraumatic Eye: Absent: conjunctival icterus ENT: Present: mucous membranes dry - Routine Respiratory Exam Present: CTA bilaterally. Absent: wheezes Comments: patient snoring on exam. - Routine Cardiovascular Exam Present: RRR, S1, S2 - Routine Abdominal Exam Present: soft, normoactive bowel sounds, non distended, non tender - Routine Extremities Exam Present: no edema, pulses intact - Routine Back/Spine/Pelvis Exam Comments: unable to examine due to patient sleeping. - Routine Musculoskeletal Exam Musculoskeletal: Present: no clubbing or cyanosis - Routine Skin Exam Present: dry, warm. Absent: jaundice Comments: afebrile. - Routine Neurological Exam patient sedated and sleeping on exam. - Routine Lymphatic Exam Lymphatic: Absent: lymphedema - Routine Psychiatric Exam Present: cooperative Results - Labs CBC & Chem 7: 05/04/17 04:12 05/04/17 04:12 Assessment and Plan (1) Dehydration Current visit: Yes Status: Acute (2) Open wound of scrotum Current visit: Yes Status: Acute (3) Scrotal abscess Current visit: Yes Status: Acute (4) Hypernatremia Current visit: Yes Status: Acute Assessment and Plan: Assessment Scrotal abscess (right) - Testicular pain and swelling secondary Right epididymoorchitis Dehydration Hypernatremia (POA) - sodium 166 on admission Supratherapeutic INR (POA) - INR >10 on admission Acute kidney injury (POA) - creatinine 2.7 on admission; resolved Hypokalemia (POA) - resolved Altered mental status 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 Anemia, acute. Plan - 05/04/17. Sodium continues to trend down at 152. Potassium stable at 3.7. WBC stable at 5.3. Continue D5W with 20KCL at 100cc/hr to help improve sodium. Will recheck BMP in AM to monitor electrolytes and renal function. Weight trending up. Continue to monitor closely for fluid overload. Continue cefepime for coverage of scrotal abscess. I/D planned on 05/05 by urology. Continue Aquacel AG covered with ABD pad as per wound team. Will hold lovenox today due to anticipated I&D tomorrow and would recommend considering restarting lovenox following procedure for DVT prophylaxis. Encourage SCDs. Increased sedation today per family. Medication list reviewed. Morphine decreased to 1mg Q3-4 hours PRN. Monitor closely for improvement in alertness. Speech working with swallow-improvement in oral intake noted. With continued encephalopathy, do not feel patient ready for PT/OT at this time. Will check Vitamin B12 secondary to macrocytosis and encephalopathy - results pending. Recheck BMP in am secondary to hypernatremia and NIKKO. Will recheck CBC in am due to scrotal abscess. Case discussed with CM and pt's daughter. Time spent with patient care 35 minutes. DVT Prophylaxis: SCD's Resuscitation Status: Do Not Resuscitate - Time spent with patient Time with patient PN: 35 minutes - Physician Narrative Physician: Joe Correia MD Narrative: Date: 05/04/17 Time: 1720 Have independently interviewed and examined pt. Chart reviewed. Case discussed with my PA. Care plan developed with my supervision; agree with above. Awake this evening. Moving arms spontaneously-attempting to get up. Little oral intake today as has been very somnolent. Not complaining of pain. Family members at bedside and case discussed with them. Lungs: decreased, no distress CV: irregularly irregular AB: soft flat nt/nd MSE: awake, minimal verbal interaction. Restless Plan: Will continue cefepime and IVF. NPO after midnight for I/D tomorrow. PT/ OT consult if alertness continues. Continue with supportive care. Hospital Course Summary Disclaimer: The visit summary below is not to be considered part of the above Progress Note. Hospital Course: 04/29/16 hospital admission Admit inpatient to the medical floor under the hospitalist service, Dr. Correia attending. It is expected his stay will exceed 2 overnights given his significant dehydration, likelihood of testicular abscess, and general debility. Bailey catheter inserted in ER secondary to acute kidney injury. Testicular sonogram for definitive diagnosis of testicular swelling. Will need urological consult, but will await sono results. Will not proceed with wound culture as there was stool covering the entire wound area. Would defer culture to be taken at time of I&D if this is truly an abscess. First dose of cefepime given an ER. Continue 1 g every 6 hours. Half normal saline started in ER, will continue for rehydration and hypernatremia and acute kidney injury. CT head was performed in the ER for altered mental status. Essentially negative. Patient is on Coumadin for A. fib; however, this will be held given his INR of greater than 10. Vitamin K 10 mg given on admission. Pharmacy to manage Coumadin when it is resumed. Speech consult to determine swallowing status and assist in making dietary recommendations. Patient requests DO NOT RESUSCITATE CODE STATUS Care to return to Dr. Billings upon dismissal. 04/30/17 Testicular sono showing abscess on right side - consult placed with Dr Rojas for evaluation and drainage. Obtain CT to exclude extension of abscess. Continue with cefepime for antimicrobial coverage. Sodium with gradual decrease to 163. Creatinine with decrease to 2.3. Continue 1/2NS at 100 cc/hr for hydration and to normalize sodium. INR with decrease to 7.3 - Vitamin K 5mg x1. Coumadin not restarted due to elevated INR. Daily INRs. Speech to check swallow function. Recheck BMP in am secondary to hypernatremia and NIKKO. Will recheck CBC in am due to scrotal abscess. 05/01/17 Sodium with gradual decrease to 161 with potassium 3.2. Creatinine improved to 1.8. Mentation and oral drive still diminished. Working with Speech-therapeutic NPO recommended. With sodium elevated, patient not ready to work with PT/OT yet. INR decreased to 1.44. Will hold on restarting Coumadin as planning I/D of scrotal abscess on 05/05. Wound team recommending Aquacel AG covered with ABD pad. Continue with cefepime for antimicrobial coverage. Continue 1/2NS, but add 20mEq KCl as potassium decreased. Discussed with about patients status. Hope to see functional improvements once sodium normalized and abscess resolved. Uncertain if swallow function will return. Discussed about Feeding Tube, but too early to make decision about this now. Asked to think about his wishes for feeding tube if swallow function not improving once acute needs resolved. 05/02/17 Sodium unchanged at 161. Potassium increased to 3.4. Creatinine improved to 1.5. Change IVF to D5W with 20KCL at 100cc/hr to help improve sodium. Continue cefepime for coverage of scrotal abscess - not seeing sighs of systemic process due to abscess. I/D planned on 05/05 by urology. Continue Aquacel AG covered with ABD pad as per wound team. Speech working with swallow. Possible PT/OT in near future once mentation improved. Hope to see improvement in mentation as sodium normalizes. 05/03/17 Sodium decreased to 154 with potassium improved to 3.6. Creatinine 1.3 this am. WBC 6.3. Continue D5W with 20KCL at 100cc/hr to help improve sodium. Continue cefepime for coverage of scrotal abscess. I/D planned on 05/05 by urology. Continue Aquacel AG covered with ABD pad as per wound team. Will give Lovenox 40mg SQ x1 for DVT prevention. Speech working with swallow-improvement in oral intake noted. With continued encephalopathy, do not feel patient ready for PT/OT at this time. Will check Vitamin B12 secondary to macrocytosis and encephalopathy. Plan - 05/04/17. Sodium continues to trend down at 152. Potassium stable at 3.7. WBC stable at 5.3. Continue D5W with 20KCL at 100cc/hr to help improve sodium. Will recheck BMP in AM to monitor electrolytes and renal function. Weight trending up. Continue to monitor closely for fluid overload. Continue cefepime for coverage of scrotal abscess. I/D planned on 05/05 by urology. Continue Aquacel AG covered with ABD pad as per wound team. Will hold lovenox today due to anticipated I&D tomorrow and would recommend considering restarting lovenox following procedure for DVT prophylaxis. Encourage SCDs. Increased sedation today per family. Medication list reviewed. Morphine decreased to 1mg Q3-4 hours PRN. Monitor closely for improvement in alertness. Speech working with swallow-improvement in oral intake noted. With continued encephalopathy, do not feel patient ready for PT/OT at this time. Will check Vitamin B12 secondary to macrocytosis and encephalopathy - results pending. Recheck BMP in am secondary to hypernatremia and NIKKO. Will recheck CBC in am due to scrotal abscess. Case discussed with CM and pt's daughter. Time spent with patient care 35 minutes.
[2017-05-04] MEDS: MORPHINE SULFATE 2mg INJECTION IVP PRN ×2 (19:18→22:34)
[2017-05-04] MEDS: LIDOCAINE PATCH REMOVAL TOP SCH ×2 (21:48→21:52)
[2017-05-04] MEDS: SALINE FLUSH 10ml SYRINGE IVF PRN (22:35)
[2017-05-05] MEDS ORDERED: DiphenhydrAMINE 50 MG/ML INJECTION IVP PRN (00:57)
[2017-05-05] MEDS: MORPHINE SULFATE 2mg INJECTION IVP PRN ×3 (01:49→17:55)
[2017-05-05] MEDS: SALINE FLUSH 10ml SYRINGE IVF PRN ×2 (04:50→10:31)
[2017-05-05] MEDS: NS FLUSH BAG 500ml IV PRN (07:18)
[2017-05-05] MEDS: CEFEPIME 1 GM in NS 100 ML IV SCH ×3 (07:18→22:44)
[2017-05-05] MEDS: POTASSIUM CHLORIDE INJ 20 MEQ in D5W 1,000 ML IV SCH ×2 (10:30→22:41)
[2017-05-05] MEDS: LIDOCAINE 5% PATCH TOP SCH (10:30)
[2017-05-05] MEDS: CLOTRIMAZOLE 10 MG TROCHE MM SCH ×5 (10:31→20:04)
[2017-05-05] MEDS ORDERED: NS 1,000 ML IV SCH (14:15)
--- NOTE | 2017-05-05 14:18 | Anesthesia Preoperative Report ---
Anesthesia Preoperative Record - Date and Time Date: 05/05/17 Preoperative Diagnosis: Hypernatremia NPO Since Date: 05/04/17 NPO Since Time: 00:00 Allergies/Adverse Reactions: Allergies Allergy/AdvReac Type Severity Reaction Status Date / Time beclomethasone Allergy Unknown Verified 04/29/17 16:33 [From Vancenase] benazepril [From Lotensin] Allergy Unknown Verified 04/29/17 16:33 chlorpheniramine Allergy Unknown Verified 04/29/17 16:34 [From Tussionex] hydrocodone [From Tussionex] Allergy Unknown Verified 04/29/17 16:34 lisinopril Allergy Unknown Verified 04/29/17 16:34 tamsulosin [From Flomax] Allergy Unknown Verified 04/29/17 16:33 beclomethasone dipropionate Allergy Unknown Uncoded 12/20/15 18:19 benazepril HCl Allergy Unknown Uncoded 12/20/15 18:19 [place] nuts Allergy Unknown Uncoded 12/20/15 18:19 Chlorpheniramine Polistirex Allergy Unknown Uncoded 12/20/15 18:19 Hydrocodone Polistrx Allergy Unknown Uncoded 12/20/15 18:19 pseudoephedrine HCl Allergy Unknown Uncoded 12/20/15 18:19 tamsulosin HCl Allergy Unknown Uncoded 12/20/15 18:19 - Vital Signs Vital Signs: Temperature 97.6 F 05/05/17 14:10 Pulse Rate 46 L 05/05/17 14:10 Respiratory Rate 16 05/05/17 14:10 Blood Pressure 157/66 H 05/05/17 14:10 Pulse Oximetry 100 05/05/17 14:10 Height and Weight: Height 1.83 m Weight 69.4 kg Body Mass Index 19.8 - Medications Inpatient Medications: Current Medications Clotrimazole (Mycelex Amelia) 10 mg MM 5XD MARCELINO Last Admin: 05/05/17 10:31 Dose: Not Given Diphenhydramine HCl (Benadryl) 25 mg IVP Q6HR PRN PRN Reason: Itching Last Admin: 05/05/17 01:06 Dose: 25 mg Cefepime HCl 1 gm/ Sodium (Chloride) 100 mls @ 200 mls/hr IV Q8H MARCELINO Last Infusion: 05/05/17 08:04 Dose: Infused Potassium Chloride 20 meq/ (Dextrose) 1,010 mls @ 100 mls/hr IV .Q10H6M [facility] Last Admin: 05/05/17 10:30 Dose: 100 mls/hr Sodium Chloride (Normal Saline) 1,000 mls @ 150 mls/hr IV .Q6H40M [facility] Last Admin: 05/05/17 14:08 Dose: 150 mls/hr Lidocaine (Lidoderm) 1 patch TOP DAILY [facility] Last Admin: 05/05/17 10:30 Dose: 1 patch Lidocaine HCl/Dextrose (Lidoderm Patch Removal) 1 removal TOP 2100 [facility] Last Admin: 05/04/17 21:52 Dose: Not Given Lorazepam (Ativan Inj) 0.5 mg IVP Q6H PRN Last Admin: 05/05/17 00:55 Dose: 0.5 mg Morphine Sulfate (Morphine Sulfate Inj) 1 mg IVP Q3-4HR PRN PRN Reason: Pain Last Admin: 05/05/17 04:49 Dose: 1 mg Sodium Chloride (Iv Flush) 10 - 80 ml IVF PRN PRN PRN Reason: Flushing Last Admin: 05/05/17 10:31 Dose: 20 ml Sodium Chloride (Normal Saline) 500 ml IV PRN PRN Last Admin: 05/05/17 07:18 Dose: 500 ml Home Medications: Home Medications Medication Instructions Recorded Confirmed Type Docusate Calcium 240 mg PO BID #0 12/07/11 04/29/17 History Omeprazole Magnesium [Prilosec Otc] 20 mg PO DAILY #0 12/07/11 04/29/17 History Calcium Polycarbophil [Fiber Lax] 625 mg PO BID #0 04/16/12 04/29/17 History Triamterene/Hydrochlorothiazid 2 tab PO DAILY #0 04/16/12 04/29/17 History [Maxzide 37.5 mg-25 mg Tablet] Warfarin Sodium 2 mg PO 5XW #0 12/20/15 04/29/17 History Warfarin Sodium 3 mg PO 2XW #0 12/20/15 04/29/17 History Amlodipine [Norvasc] 10 mg PO DAILY 04/29/17 04/29/17 History Ascorbic Acid [Vitamin C] 1,000 mg PO DAILY 04/29/17 04/29/17 History Calcium 500 + D [Os Jose-D 500] 2 tab PO DAILY 04/29/17 04/29/17 History Lysine HCl [l-Lysine] 500 mg PO 4XW 04/29/17 04/29/17 History Potassium Chloride 10 meq PO DAILY 04/29/17 04/29/17 History Tramadol HCl [Ultram] 50 mg PO BID 04/29/17 04/29/17 History Is Patient on Beta Gabe?: No - Medical History Respiratory: Reports: Sleep Apnea Cardiovascular: Reports: Arrhythmia (A-FIB), Hypertension, High Cholesterol Gastrointestional: Reports: Gastroesophageal Reflux Disease, Hiatal Hernia Neuro/Musculoskeletal: Reports: HX.MS.OSAR, Cerebrovascular Accident (November 2011, with right sided weakness. ), Other (lethargic, restless, combative and was confused a few days ago. ) - Surgical History HEENT Surgeries: Reports: Eye Surgery (irena cataracts removed) GI Surgery/Treatments: Reports: Hernia Repair (2 repaired), Colonoscopy Reproductive Surgery/Treatment: Reports: Vasectomy Anesthesia Reactions: None Hx Family Anesthesia Reaction: No History of Motion Sickness: No - Social History Smoking Status: Never smoker Hx Chewing Tobacco Use: No Second Hand Exposure: No Substance Use Type: does not use Alcohol Intake Frequency: does not drink - Pertinent Findings Laboratory: CBC and BMP 05/05/17 05:43 05/05/17 05:43 BMP 05/05/17 05:43 Sodium 146 H Potassium 3.8 Chloride 116 H Carbon Dioxide 23 BUN 38.0 H Creatinine 1.3 Glucose 96 Calcium 8.6 EKG: A-fib - Physical Exam Respiratory Exam: Present: lungs clear, bilateral breath sounds equal Cardiovascular Exam: Present: irregularly irregular - Airway Assessment Neck Extension: other (unable to assess d/t neurological status.) Overall Assessment: other (unknown, unable to assess. ) - ASA ASA Score: 4 - Plan Anesthesia: General TIVA, General Inhalation Gases - Discussion Discussion: Discussed risks/options/alternatives of anesthesia and questions answered. Patient consents. Nursing pain assessment noted. Present for Discussion: family member (history received from family at bedside. ) Attestation Statement: Prior to the delivery of any anesthetic medication, I examined the patient, developed the plan, obtained the patient's consent and discussed the risk and benefits of the procedure with the patient/guardian. - Additional Information Seen by Anesthesia: Yes
[2017-05-05] MEDS ORDERED: FentaNYL 100 MCG/2 ML INJECTION ONE (14:31)
[2017-05-05] MEDS ORDERED: PROPOFOL 20 ML ONE (14:32)
[2017-05-05] MEDS ORDERED: LIDOCAINE 1% (10mg/ml) 30ml SDV INJ ONE (14:42)
[2017-05-05] MEDS ORDERED: BUPIVACAINE 0.25% (2.5mg/ml) PF 30ml INJECTION ONE (14:42)
[2017-05-05] MEDS ORDERED: SALINE FLUSH 10ml SYRINGE ONE (14:46)
[2017-05-05] MEDS ORDERED: PHENYLEPHRINE INJ 10 MG/ML VIAL IV ONE (14:46)
[2017-05-05] MEDS ORDERED: GLYCOPYRROLATE 0.4 MG/2 ML INJECTION ONE (14:58)
[2017-05-05] MEDS ORDERED: MORPHINE SULFATE 10 MG/ML VIAL IVP PRN (15:29)
--- NOTE | 2017-05-05 15:54 | Anesthesia Postoperative Note ---
- Date and Time Date: 05/05/17 Time: 15:54 - Status Patient Participated in Evaluation: Patient Participated in Person Vital Signs: Temperature 97.0 F 05/05/17 15:35 Pulse Rate 80 05/05/17 15:45 Respiratory Rate 15 05/05/17 15:45 Blood Pressure 119/65 05/05/17 15:45 Pulse Oximetry 100 05/05/17 15:45 Respiratory Function: Airway Patent Cardiovascular Function: Regular Pulse EKG: Sinus Rhythm Mental Status: Alert and Oriented Pain Intensity: 0 Hydration: IV Infusing Complications During Recover: None Apparent - Follow-Up Instructions Instructions: Per Surgeon
--- NOTE | 2017-05-05 16:33 | Progress Note ---
- Date 05/05/17 Subjective: F/U: Scrotal abscess, Hypernatremia, severe dehydration. Resting in bed post op. Groggy and restless; not able to communicate at this time. Dr Rojas did I/D - was fairly extensive necrotic tissue that was excised ; right testicle was removed. Sodium with decrease to 146. Objective Vital signs: Temperature 96.2 F L 05/05/17 16:07 Pulse Rate 79 05/05/17 16:22 Respiratory Rate 12 05/05/17 16:22 Blood Pressure 150/98 H 05/05/17 16:22 Pulse Oximetry 99 05/05/17 16:22 Height/Weight/BMI: Height 1.83 m Weight 69.4 kg Body Mass Index 19.8 - Constitutional Present: well nourished, well developed, thin, somnolent - Routine HEENT Exam Head: Present: normocephalic, atraumatic Eye: Present: EOMI, PERRL ENT: Present: mucous membranes moist - Routine Respiratory Exam Present: decreased breath sounds. Absent: respiratory distress, wheezes, crackles - Routine Cardiovascular Exam Present: irregular rhythm, irregularly irregular - Routine Abdominal Exam Present: soft, non distended, non tender. Absent: normoactive bowel sounds ( Decreased ) - Routine Exam Comments: Bailey present - Routine Extremities Exam Present: no edema, pulses intact. Absent: cyanosis, clubbing - Routine Skin Exam Present: dry, warm - Routine Neurological Exam Present: moving all extremities. Absent: alert - Routine Psychiatric Exam Comments: Somnolent Results - Labs CBC & Chem 7: 05/05/17 05:43 05/05/17 05:43 Assessment and Plan (1) Scrotal abscess Current visit: Yes Status: Acute (2) Open wound of scrotum Current visit: Yes Status: Acute (3) Hypernatremia Current visit: Yes Status: Acute (4) Dehydration Current visit: Yes Status: Acute Assessment and Plan: Assessment Scrotal abscess (right) - Testicular pain and swelling secondary Right epididymoorchitis Dehydration Hypernatremia (POA) - sodium 166 on admission Supratherapeutic INR (POA) - INR >10 on admission Acute kidney injury (POA) - creatinine 2.7 on admission; resolved Hypokalemia (POA) - resolved Altered mental status 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 Anemia, acute. 05/04/17. Underwent I/D of right scrotal abscess with debridement of necrotic tissue - right testicle removed. Wound team reconsulted secondary to open wound of right scrotum. Sodium decreased to 146. Will continue with D5W with 20 KCL, but decrease rate to 75cc/hr. Continue with speech therapy to help swallow function. Will have PT/OT evaluate tomorrow to work on improving strength. Now that sodium approaching normal, hope mentation will clear. B12 level pending. Potentially can restart Coumadin protocol tomorrow. Will recheck BMP secondary to NIKKO and hypernatremia. Repeat CBC in am due to scrotal abscess. Case discussed with Dr Rojas. Time spent with patient's care 25 minutes. DVT Prophylaxis: SCD's Resuscitation Status: Do Not Resuscitate - Time spent with patient Time with patient PN: 25 minutes - Physician Narrative Physician: Joe Correia MD Narrative: Date: 05/05/17 Time: 1630 Hospital Course Summary Disclaimer: The visit summary below is not to be considered part of the above Progress Note. Hospital Course: 04/29/16 hospital admission Admit inpatient to the medical floor under the hospitalist service, Dr. Correia attending. It is expected his stay will exceed 2 overnights given his significant dehydration, likelihood of testicular abscess, and general debility. Bailey catheter inserted in ER secondary to acute kidney injury. Testicular sonogram for definitive diagnosis of testicular swelling. Will need urological consult, but will await sono results. Will not proceed with wound culture as there was stool covering the entire wound area. Would defer culture to be taken at time of I&D if this is truly an abscess. First dose of cefepime given an ER. Continue 1 g every 6 hours. Half normal saline started in ER, will continue for rehydration and hypernatremia and acute kidney injury. CT head was performed in the ER for altered mental status. Essentially negative. Patient is on Coumadin for A. fib; however, this will be held given his INR of greater than 10. Vitamin K 10 mg given on admission. Pharmacy to manage Coumadin when it is resumed. Speech consult to determine swallowing status and assist in making dietary recommendations. Patient requests DO NOT RESUSCITATE CODE STATUS Care to return to Dr. Goering upon dismissal. 04/30/17 Testicular sono showing abscess on right side - consult placed with Dr Rojas for evaluation and drainage. Obtain CT to exclude extension of abscess. Continue with cefepime for antimicrobial coverage. Sodium with gradual decrease to 163. Creatinine with decrease to 2.3. Continue 1/2NS at 100 cc/hr for hydration and to normalize sodium. INR with decrease to 7.3 - Vitamin K 5mg x1. Coumadin not restarted due to elevated INR. Daily INRs. Speech to check swallow function. Recheck BMP in am secondary to hypernatremia and NIKKO. Will recheck CBC in am due to scrotal abscess. 05/01/17 Sodium with gradual decrease to 161 with potassium 3.2. Creatinine improved to 1.8. Mentation and oral drive still diminished. Working with Speech-therapeutic NPO recommended. With sodium elevated, patient not ready to work with PT/OT yet. INR decreased to 1.44. Will hold on restarting Coumadin as planning I/D of scrotal abscess on 05/05. Wound team recommending Aquacel AG covered with ABD pad. Continue with cefepime for antimicrobial coverage. Continue 1/2NS, but add 20mEq KCl as potassium decreased. Discussed with about patients status. Hope to see functional improvements once sodium normalized and abscess resolved. Uncertain if swallow function will return. Discussed about Feeding Tube, but too early to make decision about this now. Asked to think about his wishes for feeding tube if swallow function not improving once acute needs resolved. 05/02/17 Sodium unchanged at 161. Potassium increased to 3.4. Creatinine improved to 1.5. Change IVF to D5W with 20KCL at 100cc/hr to help improve sodium. Continue cefepime for coverage of scrotal abscess - not seeing sighs of systemic process due to abscess. I/D planned on 05/05 by urology. Continue Aquacel AG covered with ABD pad as per wound team. Speech working with swallow. Possible PT/OT in near future once mentation improved. Hope to see improvement in mentation as sodium normalizes. 05/03/17 Sodium decreased to 154 with potassium improved to 3.6. Creatinine 1.3 this am. WBC 6.3. Continue D5W with 20KCL at 100cc/hr to help improve sodium. Continue cefepime for coverage of scrotal abscess. I/D planned on 05/05 by urology. Continue Aquacel AG covered with ABD pad as per wound team. Will give Lovenox 40mg SQ x1 for DVT prevention. Speech working with swallow-improvement in oral intake noted. With continued encephalopathy, do not feel patient ready for PT/OT at this time. Will check Vitamin B12 secondary to macrocytosis and encephalopathy. 05/04/17. Sodium continues to trend down at 152. Potassium stable at 3.7. WBC stable at 5.3. Creatinine 1.2. Continue D5W with 20KCL at 100cc/hr to help improve sodium. Will recheck BMP in AM to monitor electrolytes and renal function. Weight trending up. Continue to monitor closely for fluid overload. Continue cefepime for coverage of scrotal abscess. I/D planned on 05/05 by urology. Continue Aquacel AG covered with ABD pad as per wound team. Will hold Lovenox today due to anticipated I&D tomorrow and would recommend considering restarting Lovenox following procedure for DVT prophylaxis. Encourage SCDs. Increased sedation today per family. Medication list reviewed. Morphine decreased to 1mg Q3-4 hours PRN. Monitor closely for improvement in alertness. Speech working with swallow-improvement in oral intake noted. With continued encephalopathy, do not feel patient ready for PT/OT at this time. Will check Vitamin B12 secondary to macrocytosis and encephalopathy - results pending. 05/05/17 Underwent I/D of right scrotal abscess with debridement of necrotic tissue - right testicle removed. Wound team reconsulted secondary to open wound of right scrotum. Sodium decreased to 146. Will continue with D5W with 20 KCL, but decrease rate to 75cc/hr. Continue with speech therapy to help swallow function. Will have PT/OT evaluate tomorrow to work on improving strength. Now that sodium approaching normal, hope mentation will clear. B12 level pending. Potentially can restart Coumadin protocol tomorrow.
[2017-05-05] MEDS: LIDOCAINE PATCH REMOVAL TOP SCH (20:05)
--- NOTE | 2017-05-05 20:48 | Operative Note ---
DATE OF PROCEDURE 05/05/2017 PREOPERATIVE DIAGNOSIS Right scrotal abscess. POSTOPERATIVE DIAGNOSES 1. Right scrotal abscess. 2. Necrotic right testicle. 3. Extensive necrosis involving the subcutaneous tissues. PROCEDURE PERFORMED 1. Incision and drainage of right scrotal abscess. 2. Right orchiectomy. 3. Debridement of necrotic tissue. PRIMARY SURGEON Yordan Rojas MD COMPLICATIONS None. DRAINS None. SPECIMEN REMOVED Right testicle. INDICATION FOR THE PROCEDURE This is an 82-year-old patient who was admitted to [facility] last week for hypernatremia, altered mental status and a scrotal abscess. I was consulted on him last week and after seeing him recommended incision and drainage of his scrotum in the OR. Due to the patient's severe hypernatremia, we elected to optimize him from a medical standpoint and then take him to the OR today. DESCRIPTION OF PROCEDURE The patient was identified in the preoperative holding area. Due to his altered mental status, the consent was obtained from his family. He was then taken back to the operating room where he was placed supine on the operating table. General anesthesia was induced. His scrotum and genitalia were prepped and draped in the usual fashion. At this time a formal time-out was done. All the persons in the room were in agreement. I began the procedure by performing an incision in the right hemiscrotum. As soon as made the incision, I immediately evacuated about 40-50 ml of purulent liquid. There was also extensive necrosis involving subcutaneous tissue of the right hemiscrotum. This was debrided sharply using Salcedo scissors. I then inspected the right testicle that appeared to be also necrotic and involved by the infection. Due to the patient's advanced age and bad infection, I elected to perform a right orchiectomy in order to control the infection better, especially since that his right testicle appeared to be necrotic. The right spermatic cord was isolated. It was then divided into pedicles and each pedicle was doubly ligated with a silk suture and divided. The testicle was sent off for pathology. Hemostasis was adequate. I then debrided some additional necrotic tissue in the right hemiscrotum. At the end, all the remaining tissues appeared to be healthy. The wound was then irrigated and then packed with Kerlix. A 16 Yor[place] Bailey was placed in the bladder. This concluded the procedure. The patient was taken out from under anesthesia and taken back to the PACU. DISPOSITION The patient will be transferred back to his inpatient room. He will need daily wound dressing changes with wound care. If he has additional necrotic tissue, he will need another second debridement in the operating room. ANAI
[2017-05-06] MEDS: SALINE FLUSH 10ml SYRINGE IVF PRN ×2 (01:46→16:46)
[2017-05-06] MEDS: MORPHINE SULFATE 2mg INJECTION IVP PRN ×4 (01:46→23:49)
[2017-05-06] MEDS: CEFEPIME 1 GM in NS 100 ML IV SCH ×3 (06:42→23:42)
[2017-05-06] MEDS: LIDOCAINE 5% PATCH TOP SCH (09:44)
[2017-05-06] MEDS: CLOTRIMAZOLE 10 MG TROCHE MM SCH ×5 (10:00→20:48)
[2017-05-06] MEDS: POTASSIUM CHLORIDE INJ 20 MEQ in D5W 1,000 ML IV SCH ×4 (10:04→21:47)
--- NOTE | 2017-05-06 20:43 | Progress Note ---
- Date 05/06/17 Subjective: The patient was seen this evening in his room. He is sleeping and very somnolent but appears comfortable. He did really see morphine earlier this afternoon for agitation and trying to climb out of bed. He is not able to answer any of my questions this evening. Per PT note, family refused PT today because the patient didn't sleep well last night. Objective Vital signs: Temperature 96.4 F L 05/06/17 15:40 Pulse Rate 45 L 05/06/17 16:00 Respiratory Rate 20 05/06/17 15:40 Blood Pressure 127/89 05/06/17 15:40 Pulse Oximetry 97 05/06/17 15:40 Height/Weight/BMI: Height 1.83 m Weight 73.1 kg Body Mass Index 19.8 Comments: GEN-the patient is sleeping and difficult to arouse, he does arouse but does not attempt to answer my questions HEENT-sclera anicteric, oropharynx is moist NECK-supple CV-regular rate and rhythm CHEST-to auscultation bilaterally ABD-soft, nontender with positive bowel sounds -the patient has packing over the testicular area where he had scrotal abscess and right testicle resection. Bailey is in place with good urine output EXT-no edema NEURO-somnolent, received morphine earlier this evening SKIN-warm and dry Results - Labs CBC & Chem 7: 05/06/17 04:32 05/06/17 04:32 Assessment and Plan (1) Dehydration Current visit: Yes Status: Acute (2) Open wound of scrotum Current visit: Yes Status: Acute (3) Scrotal abscess Current visit: Yes Status: Acute (4) Hypernatremia Current visit: Yes Status: Acute Assessment and Plan: Assessment Scrotal abscess (right) - Testicular pain and swelling secondary Necrotic right testicle, extensive necrosis involving the subcutaneous tissue -I &D with right testicular resection by Dr. 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 Anemia, acute. 05/06/17. Underwent I/D of right scrotal abscess with debridement of necrotic tissue - right testicle removed on 05/05/2017. Wound team reconsulted secondary to open wound of right scrotum. IV fluids decreased to 75 ML's per hour due to poor by mouth intake Consult speech therapy to help with swallow. Advance diet as tolerated Will have PT/OT evaluate tomorrow to work on improving strength. If the patient is still encephalopathic tomorrow, will discuss with family and may need further workup. Consider risk benefits of Coumadin reinitiation. We'll need to discuss with family tomorrow. Currently on SCDs, with thrombocytopenia, will hold off on Lovenox at this time Will recheck BMP secondary to NIKKO and hypernatremia. Repeat CBC in am due to scrotal abscess. DVT Prophylaxis: SCD's Resuscitation Status: Do Not Resuscitate - Physician Narrative Narrative: Date: 05/06/17 Time: 2034 Hospital Course Summary Disclaimer: The visit summary below is not to be considered part of the above Progress Note. Hospital Course: 04/29/16 hospital admission Admit inpatient to the medical floor under the hospitalist service, Dr. Correia attending. It is expected his stay will exceed 2 overnights given his significant dehydration, likelihood of testicular abscess, and general debility. Bailey catheter inserted in ER secondary to acute kidney injury. Testicular sonogram for definitive diagnosis of testicular swelling. Will need urological consult, but will await sono results. Will not proceed with wound culture as there was stool covering the entire wound area. Would defer culture to be taken at time of I&D if this is truly an abscess. First dose of cefepime given an ER. Continue 1 g every 6 hours. Half normal saline started in ER, will continue for rehydration and hypernatremia and acute kidney injury. CT head was performed in the ER for altered mental status. Essentially negative. Patient is on Coumadin for A. fib; however, this will be held given his INR of greater than 10. Vitamin K 10 mg given on admission. Pharmacy to manage Coumadin when it is resumed. Speech consult to determine swallowing status and assist in making dietary recommendations. Patient requests DO NOT RESUSCITATE CODE STATUS Care to return to Dr. Billings upon dismissal. 04/30/17 Testicular sono showing abscess on right side - consult placed with Dr Rojas for evaluation and drainage. Obtain CT to exclude extension of abscess. Continue with cefepime for antimicrobial coverage. Sodium with gradual decrease to 163. Creatinine with decrease to 2.3. Continue 1/2NS at 100 cc/hr for hydration and to normalize sodium. INR with decrease to 7.3 - Vitamin K 5mg x1. Coumadin not restarted due to elevated INR. Daily INRs. Speech to check swallow function. Recheck BMP in am secondary to hypernatremia and NIKKO. Will recheck CBC in am due to scrotal abscess. 05/01/17 Sodium with gradual decrease to 161 with potassium 3.2. Creatinine improved to 1.8. Mentation and oral drive still diminished. Working with Speech-therapeutic NPO recommended. With sodium elevated, patient not ready to work with PT/OT yet. INR decreased to 1.44. Will hold on restarting Coumadin as planning I/D of scrotal abscess on 05/05. Wound team recommending Aquacel AG covered with ABD pad. Continue with cefepime for antimicrobial coverage. Continue 1/2NS, but add 20mEq KCl as potassium decreased. Discussed with about patients status. Hope to see functional improvements once sodium normalized and abscess resolved. Uncertain if swallow function will return. Discussed about Feeding Tube, but too early to make decision about this now. Asked to think about his wishes for feeding tube if swallow function not improving once acute needs resolved. 05/02/17 Sodium unchanged at 161. Potassium increased to 3.4. Creatinine improved to 1.5. Change IVF to D5W with 20KCL at 100cc/hr to help improve sodium. Continue cefepime for coverage of scrotal abscess - not seeing sighs of systemic process due to abscess. I/D planned on 05/05 by urology. Continue Aquacel AG covered with ABD pad as per wound team. Speech working with swallow. Possible PT/OT in near future once mentation improved. Hope to see improvement in mentation as sodium normalizes. 05/03/17 Sodium decreased to 154 with potassium improved to 3.6. Creatinine 1.3 this am. WBC 6.3. Continue D5W with 20KCL at 100cc/hr to help improve sodium. Continue cefepime for coverage of scrotal abscess. I/D planned on 05/05 by urology. Continue Aquacel AG covered with ABD pad as per wound team. Will give Lovenox 40mg SQ x1 for DVT prevention. Speech working with swallow-improvement in oral intake noted. With continued encephalopathy, do not feel patient ready for PT/OT at this time. Will check Vitamin B12 secondary to macrocytosis and encephalopathy. 05/04/17. Sodium continues to trend down at 152. Potassium stable at 3.7. WBC stable at 5.3. Creatinine 1.2. Continue D5W with 20KCL at 100cc/hr to help improve sodium. Will recheck BMP in AM to monitor electrolytes and renal function. Weight trending up. Continue to monitor closely for fluid overload. Continue cefepime for coverage of scrotal abscess. I/D planned on 05/05 by urology. Continue Aquacel AG covered with ABD pad as per wound team. Will hold Lovenox today due to anticipated I&D tomorrow and would recommend considering restarting Lovenox following procedure for DVT prophylaxis. Encourage SCDs. Increased sedation today per family. Medication list reviewed. Morphine decreased to 1mg Q3-4 hours PRN. Monitor closely for improvement in alertness. Speech working with swallow-improvement in oral intake noted. With continued encephalopathy, do not feel patient ready for PT/OT at this time. Will check Vitamin B12 secondary to macrocytosis and encephalopathy - results pending. 05/05/17 Underwent I/D of right scrotal abscess with debridement of necrotic tissue - right testicle removed. Wound team reconsulted secondary to open wound of right scrotum. Sodium decreased to 146. Will continue with D5W with 20 KCL, but decrease rate to 75cc/hr. Continue with speech therapy to help swallow function. Will have PT/OT evaluate tomorrow to work on improving strength. Now that sodium approaching normal, hope mentation will clear. B12 level pending. Potentially can restart Coumadin protocol tomorrow.
[2017-05-06] MEDS: LIDOCAINE PATCH REMOVAL TOP SCH (20:50)
[2017-05-07] MEDS: CEFEPIME 1 GM in NS 100 ML IV SCH ×3 (06:02→23:16)
--- NOTE | 2017-05-07 08:53 | Progress Note ---
- Date 05/07/17 Subjective: Chano Haley is seen this morning in follow up. Nursing staff is at his bedside as he has required one on one overnight night due to agitation. He pulls off clothes and telemetry. His eyes are open and he does answer yes to several questions however he will not follow commands. Vital sings stable. BP 158/85. Objective Vital signs: Temperature 96.6 F L 05/07/17 07:17 Pulse Rate 84 05/07/17 07:17 Respiratory Rate 20 05/07/17 07:17 Blood Pressure 158/85 H 05/07/17 07:17 Pulse Oximetry 96 05/07/17 07:17 Height/Weight/BMI: Height 1.83 m Weight 68.3 kg Body Mass Index 19.8 - Constitutional Present: no acute distress - Routine HEENT Exam Eye: Present: EOMI ENT: Present: mucous membranes moist, dentition normal - Routine Respiratory Exam Present: CTA bilaterally. Absent: wheezes - Routine Cardiovascular Exam Present: RRR, S1, S2. Absent: murmur - Routine Abdominal Exam Present: soft, normoactive bowel sounds, non distended. Absent: tenderness - Routine Exam Comments: scrotal dressing intact - Routine Extremities Exam Present: normal capillary refill - Routine Skin Exam Present: intact, dry, warm - Routine Neurological Exam Present: altered mental status, moving all extremities - Routine Lymphatic Exam Lymphatic: Absent: adenopathy - Routine Psychiatric Exam Present: agitated Results - Labs CBC & Chem 7: 05/07/17 04:11 05/07/17 04:11 Assessment and Plan (1) Dehydration Current visit: Yes Status: Acute (2) Open wound of scrotum Current visit: Yes Status: Acute (3) Scrotal abscess Current visit: Yes Status: Acute (4) Hypernatremia Current visit: Yes Status: Acute Assessment and Plan: Assessment Scrotal abscess (right) - Testicular pain and swelling secondary Necrotic right testicle, extensive necrosis involving the subcutaneous tissue -I &D with right testicular resection by Dr. 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 Anemia, acute. 05/07 Asked nursing staff to have Speech therapy work with PO intake today Underwent I/D of right scrotal abscess with debridement of necrotic tissue - right testicle removed on 05/05/2017. Wound team to manage scrotal wound and dressing changes Continues to be agitated requiring one to one care. ?morphine related Lovenox contraindicated given thrombocytopenia Discuss care with attending Dr Whitlock - Physician Narrative Physician: Michelle Whitlock MD Narrative: Date: 05/07/17 Time: 1:34 PM I reviewed this chart, the patient history, and the SPECIMEN TECHNICIAN's/PA's documented findings as above. We discussed and formulated the assessment and plan as above with the additions below.-Kamlesh I saw and examined the patient this afternoon accompanied by his . She states that before he became acutely ill he was conversant and did his own cares at home. She states he was occasionally forgetful with names or what start to say something and then say "oh I forgot what I was going to say". He has not been diagnosed with dementia. Per his nurse, and he was agitated last night and required one-on-one care. He received no 0.5 mg of lorazepam just after midnight and 1 mg of morphine just before midnight last night. He has a Bailey catheter in place with good urine output. There are some small blood clots present. He was seen by speech therapy today and was too somnolent to safely swallow. He has not been eating or drinking well. On exam he is arousable and opens his eyes but then closes them again. He does not attempt to answer any questions. HEENT reveals oropharynx to be mildly dry but he is mouth breathing. Neck is supple. Chest is clear to auscultation. Cardiovascular reveals a regular rate and rhythm. Abdomen is soft and nontender with positive bowel sounds. Extremities reveal SCDs in place. There is no edema of the legs. Lab today reveals pre-albumin is 16.8. Sodium has normalized at 143. Magnesium, calcium and phosphorus are normal. Impression/plan The patient still has pretty significant encephalopathy, this may be secondary to morphine and Ativan. We'll discontinue morphine and give scheduled Tylenol either by mouth or rectal. We'll discontinue Ativan. Haldol as needed for agitation. I did discuss the patient with Amber in wound care and she will reassess the patient's wound today. Regarding protein calorie malnutrition 3 some poor by mouth intake, will start PPN today with pharmacy. If by mouth intake is not improving, could consider placing a PICC line and starting TPN in the next 1-2 days. Regarding anticoagulation, he is not able to take Coumadin at this time since he cannot take by mouth meds. We are holding on Lovenox or heparin because of thrombocytopenia with platelets of 72. Continue SCDs for DVT prophylaxis. Hospital Course Summary Disclaimer: The visit summary below is not to be considered part of the above Progress Note. Hospital Course: 04/29/16 hospital admission Admit inpatient to the medical floor under the hospitalist service, Dr. Correia attending. It is expected his stay will exceed 2 overnights given his significant dehydration, likelihood of testicular abscess, and general debility. Bailey catheter inserted in ER secondary to acute kidney injury. Testicular sonogram for definitive diagnosis of testicular swelling. Will need urological consult, but will await sono results. Will not proceed with wound culture as there was stool covering the entire wound area. Would defer culture to be taken at time of I&D if this is truly an abscess. First dose of cefepime given an ER. Continue 1 g every 6 hours. Half normal saline started in ER, will continue for rehydration and hypernatremia and acute kidney injury. CT head was performed in the ER for altered mental status. Essentially negative. Patient is on Coumadin for A. fib; however, this will be held given his INR of greater than 10. Vitamin K 10 mg given on admission. Pharmacy to manage Coumadin when it is resumed. Speech consult to determine swallowing status and assist in making dietary recommendations. Patient requests DO NOT RESUSCITATE CODE STATUS Care to return to Dr. Billings upon dismissal. 04/30/17 Testicular sono showing abscess on right side - consult placed with Dr Rojas for evaluation and drainage. Obtain CT to exclude extension of abscess. Continue with cefepime for antimicrobial coverage. Sodium with gradual decrease to 163. Creatinine with decrease to 2.3. Continue 1/2NS at 100 cc/hr for hydration and to normalize sodium. INR with decrease to 7.3 - Vitamin K 5mg x1. Coumadin not restarted due to elevated INR. Daily INRs. Speech to check swallow function. Recheck BMP in am secondary to hypernatremia and NIKKO. Will recheck CBC in am due to scrotal abscess. 05/01/17 Sodium with gradual decrease to 161 with potassium 3.2. Creatinine improved to 1.8. Mentation and oral drive still diminished. Working with Speech-therapeutic NPO recommended. With sodium elevated, patient not ready to work with PT/OT yet. INR decreased to 1.44. Will hold on restarting Coumadin as planning I/D of scrotal abscess on 05/05. Wound team recommending Aquacel AG covered with ABD pad. Continue with cefepime for antimicrobial coverage. Continue 1/2NS, but add 20mEq KCl as potassium decreased. Discussed with about patients status. Hope to see functional improvements once sodium normalized and abscess resolved. Uncertain if swallow function will return. Discussed about Feeding Tube, but too early to make decision about this now. Asked to think about his wishes for feeding tube if swallow function not improving once acute needs resolved. 05/02/17 Sodium unchanged at 161. Potassium increased to 3.4. Creatinine improved to 1.5. Change IVF to D5W with 20KCL at 100cc/hr to help improve sodium. Continue cefepime for coverage of scrotal abscess - not seeing sighs of systemic process due to abscess. I/D planned on 05/05 by urology. Continue Aquacel AG covered with ABD pad as per wound team. Speech working with swallow. Possible PT/OT in near future once mentation improved. Hope to see improvement in mentation as sodium normalizes. 05/03/17 Sodium decreased to 154 with potassium improved to 3.6. Creatinine 1.3 this am. WBC 6.3. Continue D5W with 20KCL at 100cc/hr to help improve sodium. Continue cefepime for coverage of scrotal abscess. I/D planned on 05/05 by urology. Continue Aquacel AG covered with ABD pad as per wound team. Will give Lovenox 40mg SQ x1 for DVT prevention. Speech working with swallow-improvement in oral intake noted. With continued encephalopathy, do not feel patient ready for PT/OT at this time. Will check Vitamin B12 secondary to macrocytosis and encephalopathy. 05/04/17. Sodium continues to trend down at 152. Potassium stable at 3.7. WBC stable at 5.3. Creatinine 1.2. Continue D5W with 20KCL at 100cc/hr to help improve sodium. Will recheck BMP in AM to monitor electrolytes and renal function. Weight trending up. Continue to monitor closely for fluid overload. Continue cefepime for coverage of scrotal abscess. I/D planned on 05/05 by urology. Continue Aquacel AG covered with ABD pad as per wound team. Will hold Lovenox today due to anticipated I&D tomorrow and would recommend considering restarting Lovenox following procedure for DVT prophylaxis. Encourage SCDs. Increased sedation today per family. Medication list reviewed. Morphine decreased to 1mg Q3-4 hours PRN. Monitor closely for improvement in alertness. Speech working with swallow-improvement in oral intake noted. With continued encephalopathy, do not feel patient ready for PT/OT at this time. Will check Vitamin B12 secondary to macrocytosis and encephalopathy - results pending. 05/05/17 Underwent I/D of right scrotal abscess with debridement of necrotic tissue - right testicle removed. Wound team reconsulted secondary to open wound of right scrotum. Sodium decreased to 146. Will continue with D5W with 20 KCL, but decrease rate to 75cc/hr. Continue with speech therapy to help swallow function. Will have PT/OT evaluate tomorrow to work on improving strength. Now that sodium approaching normal, hope mentation will clear. B12 level pending. Potentially can restart Coumadin protocol tomorrow. 05/07 Asked nursing staff to have Speech therapy work with PO intake today Underwent I/D of right scrotal abscess with debridement of necrotic tissue - right testicle removed on 05/05/2017. Wound team to manage scrotal wound and dressing changes Continues to be agitated requiring one to one care. ?morphine related Lovenox contraindicated given thrombocytopenia Discuss care with attending Dr Whitlock
[2017-05-07] MEDS: LIDOCAINE 5% PATCH TOP SCH (10:28)
[2017-05-07] MEDS: CLOTRIMAZOLE 10 MG TROCHE MM SCH ×6 (10:33→21:34)
[2017-05-07] MEDS ORDERED: HALOPERIDOL 5 MG/ML INJECTION IVP PRN (11:04)
[2017-05-07] MEDS: ACETAMINOPHEN 500 MG TABLET PO SCH ×4 (11:47→23:17)
[2017-05-07] MEDS ORDERED: PPN - PHARMACY CONSULT MC ONE (13:31)
[2017-05-07] MEDS: POTASSIUM CHLORIDE INJ 20 MEQ in D5W 1,000 ML IV SCH (14:53)
--- NOTE | 2017-05-07 15:45 | Wound Care Progress Note ---
Wound Center Progress Note: Pt has a large open cavity on scrotum wound is approximately 2 x 3 x 6. Old packing removed after moistened by saline. Wound bed appears beefy red, and no necrosis noted. Pt is not very responsive, moans in pain when dressing removed and replaced. At this time saline moistened gauze placed back in wound bed and ABD placed on top for absorption of moisture. This drsg should be replaced daily until other orders are received.
[2017-05-07] MEDS ORDERED: FAT EMULSION 20% 500 ML BAG IV SCH (16:00)
[2017-05-07] MEDS ORDERED: MULTI-VIT INFUSION 10 ML, MULTI-TRACE ELEMENTS 1 ML in PPN - STANDARD FORMULA 2,000 ML IV SCH (16:00)
[2017-05-07] MEDS: FAT EMULSION 20% 500 ML IV SCH (17:09)
[2017-05-07] MEDS: LIDOCAINE PATCH REMOVAL TOP SCH (21:39)
[2017-05-08] MEDS: ACETAMINOPHEN 500 MG TABLET PO SCH ×5 (04:31→18:24)
[2017-05-08] MEDS: SALINE FLUSH 10ml SYRINGE IVF PRN ×3 (06:14→19:12)
[2017-05-08] MEDS: CEFEPIME 1 GM in NS 100 ML IV SCH ×3 (06:14→22:35)
[2017-05-08] MEDS: ONDANSETRON 4 MG/2 ML INJECTION IVP PRN ×2 (06:26→14:34)
--- NOTE | 2017-05-08 07:50 | XRay Report ---
Indication: n/v PROCEDURE: XR abdomen 2V: Encounter: Initial Comparison: None Findings: Motion artifact. The visualized lung bases are clear. There is no free air on the upright view. The bowel gas pattern is nonobstructive and nonspecific. Gas is seen in nondilated small and large bowel to the level of the rectum. Moderate stool is seen throughout the colon. 8-9 cm rectal stool ball present. Impression: Nonobstructive nonspecific bowel gas pattern. Rectal stool ball could represent a fecal impaction. There is a preliminary report by [facility]. .
--- NOTE | 2017-05-08 10:28 | Pharmacy Consult-TPN/PPN ---
Pharmacy Consult-TPN/PPN - Laboratory Information Chemistry Turbidity < 20 (0-20) 05/08/17 03:54 Sodium 138 MEQ/L (134-144) 05/08/17 03:54 Potassium 3.9 MEQ/L (3.6-5) 05/08/17 03:54 Chloride 107 MEQ/L (98-107) D 05/08/17 03:54 Carbon Dioxide 20 MEQ/L (22-30) L 05/08/17 03:54 Anion Gap 11 MEQ/L (5-15) 05/08/17 03:54 BUN 31.0 MG/DL (9-20) H 05/08/17 03:54 Creatinine 1.2 MG/DL (0.8-1.5) 05/08/17 03:54 GFR Calculation 58 05/08/17 03:54 BUN/Creatinine Ratio 26 RATIO (6-26) 05/08/17 03:54 Glucose 120 MG/DL (75-110) H 05/08/17 03:54 Glucometer 104 mg/dL (65-110) 05/05/17 05:44 Calculated Osmolality 274 MOSM/KG (261-280) 05/08/17 03:54 Calcium 8.5 MG/DL (8.4-10.2) 05/08/17 03:54 Phosphorus 2.8 MG/DL (2.5-4.5) 05/07/17 04:11 Magnesium 1.8 MG/DL (1.6-2.3) 05/07/17 04:11 Total Bilirubin 1.50 MG/DL (0.20-1.30) H 04/29/17 14:17 Conjugated Bilirubin 0.00 MG/DL (0.00-0.30) 04/29/17 14:17 Unconjugated Bilirubin 0.50 MG/DL (0.00-1.1) 04/29/17 14:17 Icterus Index < 2 (0-7) 05/08/17 03:54 AST 56 U/L (17-59) 04/29/17 14:17 ALT 53 U/L (21-72) 04/29/17 14:17 Alkaline Phosphatase 122 U/L (38-126) 04/29/17 14:17 Troponin I 0.077 ng/ml (0-0.12) 04/29/17 14:17 Total Protein 8.6 G/DL (6.3-8.2) H 04/29/17 14:17 Albumin 2.9 G/DL (3.5-5.0) L 05/07/17 04:11 Globulin 4.2 G/DL (2.4-3.6) H 04/29/17 14:17 Albumin/Globulin Ratio 1.0 RATIO (1.1-2.2) L 04/29/17 14:17 Prealbumin 16.8 MG/DL (17.6-36.0) L 05/07/17 04:11 Plasma Lactate 2.1 MMOL/L (0.6-2.2) 04/29/17 18:10 Vitamin B12 813 PG/ML (239-931) 05/04/17 04:12 Specimen Hemolysis 24 (0-25) 05/08/17 03:54 Intake and Output 05/07/17 05/08/17 05/09/17 06:59 06:59 06:59 Intake Total 2199.583 / 2199.583 2350.000 / 2350.000 Output Total 2850 / 2850 1900 / 1900 Balance -650.417 / -650.417 450.000 / 450.000 Weight 73.1 kg 68.3 kg 68.8 kg Intake: IV 2199.583 / 2199.583 2350.000 / 2350.000 Cefepime 1 gm In Ns 100 ml @ 300 / 300 400 / 400 200 mls/hr IV Q8H MARCELINO Rx#: [id number] Fat Emulsion 20% 500 ml @ 50 500.000 / 500.000 mls/hr IV 1600 MARCELINO Rx#: [id number] Multi-Vit Infusion 10 ml Multi 926.25 / 926.25 -Trace Elements 1 ml In Ppn - Standard Formula 2,000 ml @ 75 mls/hr IV .Q24H MARCELINO Rx#: [id number] Potassium Chloride Inj 20 meq 1899.583 / 1899.583 523.75 / 523.75 In D5w 1,000 ml @ 75 mls/hr IV .[id number] MARCELINO Rx#:[id number] Oral 0 / 0 Output: Emesis 150 / 150 Urine Amount (Catheter) 2850 / 2850 1750 / 1750 Other: Urine Appearance Clear Cloudy Urine Color Dark Hemalatha Tea Colored Urine Odor Normal # Unmeasured Emesis Episodes 1 - Consult Information We will add 20mEq of KCl to each standard PPN bag. Continue the same rate of 75mL per hour. Thanks
[2017-05-08] MEDS: CLOTRIMAZOLE 10 MG TROCHE MM SCH ×4 (12:41→21:03)
--- NOTE | 2017-05-08 14:26 | Progress Note ---
- Date 05/08/17 Subjective: LEENA was resting with his eyes close in bed. His , Ca was present. She states that he has been sleeping for the last 14 days. When he wakes up, he is confused, pulling out IVs, or resisting cares. When they tried to investigate his scrotal wound, he tried to push her hands away. She hopes that he will get better. We discussed the imaging results of the abdominal x-ray done this morning. He has had 2 bouts of emesis since last night. No blood reported. Objective Vital signs: Temperature 96.0 F L 05/08/17 12:00 Pulse Rate 67 05/08/17 12:00 Respiratory Rate 16 05/08/17 12:00 Blood Pressure 102/48 05/08/17 12:00 Pulse Oximetry 97 05/08/17 12:00 Height/Weight/BMI: Height 1.83 m Weight 68.8 kg Body Mass Index 19.8 - Constitutional Present: no acute distress, well nourished, well developed, thin - Routine HEENT Exam ENT: Present: mucous membranes dry - Routine Respiratory Exam Present: CTA bilaterally - Routine Cardiovascular Exam Present: RRR, S1, S2 - Routine Abdominal Exam Present: soft, non distended. Absent: normoactive bowel sounds (hypoactive) - Routine Exam Comments: Patient was lying on his right side and I was unable to visualize his right scrotum. His right upper thigh was slightly edematous. - Routine Extremities Exam Present: no edema, pulses intact - Routine Skin Exam Present: ecchymosis (left lower abdomen and into flank; also to left hip). Absent: dry (diaphoretic) - Routine Neurological Exam Absent: alert, oriented X3, normal speech - Routine Psychiatric Exam Present: unable to assess. Absent: normal affect, normal thought process Results - Labs CBC & Chem 7: 05/08/17 03:54 05/08/17 03:54 Assessment and Plan (1) Dehydration Current visit: Yes Status: Acute (2) Open wound of scrotum Current visit: Yes Status: Acute (3) Scrotal abscess Current visit: Yes Status: Acute (4) Hypernatremia Current visit: Yes Status: Acute Assessment and Plan: Assessment Scrotal abscess (right) - Testicular pain and swelling secondary Necrotic right testicle, extensive necrosis involving the subcutaneous tissue -I &D with right testicular resection by Dr. 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 Anemia, acute. 05/08 Plan Still markedly encephalopathic; last Morphine on 05/04 at 0117 and last Ativan on 05/07 at [address]. Ad[address] head CT showed moderate atrophy without acute findings. He's been off anticoagulants since 05/03/17 and w/ history of a-fib he is at higher risk of stroke. If encephalopathy does not improve soon, consider repeating head CT. N/V x2; abdominal xray reviewed - moderate amount of stool with large rectal stool ball. Will ask nursing to attempt disimpaction; could try fleet's enema. Concerned about patient's ability to cooperate with aggressive measures. Continue wound care for recent testicular resection/wound. Continue Cefepime. Thrombocytopenia persists with plt count of 79 Continue PPN. Unable to take in anything PO. 05/08/2017-6:37 PM-I reviewed this chart, the patient history, and the SQL ANALYST's/PA 's documented findings as above. We discussed and formulated the assessment and plan as above with the additions below.-Dr. Whitlock The patient was seen this evening accompanied by his and daughter. He continues to be very somnolent. I was able to waken him slightly and he said he was "okay". He did not attempt to answer any other questions. His breathing sounds stridorous in his neck. The patient vomited 3 times last night. He has been too somnolent to eat. Ativan and narcotics have been discontinued. Despite this he is not waking up well. Family describes that he was having difficulties with his memory and forgetting words frequently prior to admission. On exam he is very somnolent but does awaken. HEENT reveals oropharynx to be mildly dry but he is mouth breathing. There is questionable stridorous sound in his neck. Neck is supple. Chest reveals decreased breath sounds throughout. Cardiovascular reveals a regular rate and rhythm. Abdomen is soft and nontender. Extremities are free of edema. CT head was obtained day and revealed moderate to severe generalized atrophy. No acute intracranial abnormality or hemorrhage was seen. Liver enzymes are essentially normal. Ammonia level was normal today. Impression and plan Encephalopathy with severe somnolence-not significantly improved after discontinuation of Ativan and narcotics. Will check ABG now. Regarding possible stridor-we'll check CT soft tissue neck now Regarding recent emesis-we'll check chest x-ray to rule out pneumonia If he is still encephalopathic tomorrow and cause has not been found, consider neurology consultation. Continue PPN for nutrition. Continue cefepime for scrotal wound. Wound and skin team continued to treat his scrotal wound. His custom with family. DVT Prophylaxis: SCD's Resuscitation Status: Do Not Resuscitate - Physician Narrative Physician: Michelle Whitlock MD Narrative: Date: 05/08/17 Time: 1422 Hospital Course Summary Disclaimer: The visit summary below is not to be considered part of the above Progress Note. Hospital Course: 04/29/16 hospital admission Admit inpatient to the medical floor under the hospitalist service, Dr. Correia attending. It is expected his stay will exceed 2 overnights given his significant dehydration, likelihood of testicular abscess, and general debility. Bailey catheter inserted in ER secondary to acute kidney injury. Testicular sonogram for definitive diagnosis of testicular swelling. Will need urological consult, but will await sono results. Will not proceed with wound culture as there was stool covering the entire wound area. Would defer culture to be taken at time of I&D if this is truly an abscess. First dose of cefepime given an ER. Continue 1 g every 6 hours. Half normal saline started in ER, will continue for rehydration and hypernatremia and acute kidney injury. CT head was performed in the ER for altered mental status. Essentially negative. Patient is on Coumadin for A. fib; however, this will be held given his INR of greater than 10. Vitamin K 10 mg given on admission. Pharmacy to manage Coumadin when it is resumed. Speech consult to determine swallowing status and assist in making dietary recommendations. Patient requests DO NOT RESUSCITATE CODE STATUS Care to return to Dr. Billings upon dismissal. 04/30/17 Testicular sono showing abscess on right side - consult placed with Dr Rojas for evaluation and drainage. Obtain CT to exclude extension of abscess. Continue with cefepime for antimicrobial coverage. Sodium with gradual decrease to 163. Creatinine with decrease to 2.3. Continue 1/2NS at 100 cc/hr for hydration and to normalize sodium. INR with decrease to 7.3 - Vitamin K 5mg x1. Coumadin not restarted due to elevated INR. Daily INRs. Speech to check swallow function. Recheck BMP in am secondary to hypernatremia and NIKKO. Will recheck CBC in am due to scrotal abscess. 05/01/17 Sodium with gradual decrease to 161 with potassium 3.2. Creatinine improved to 1.8. Mentation and oral drive still diminished. Working with Speech-therapeutic NPO recommended. With sodium elevated, patient not ready to work with PT/OT yet. INR decreased to 1.44. Will hold on restarting Coumadin as planning I/D of scrotal abscess on 05/05. Wound team recommending Aquacel AG covered with ABD pad. Continue with cefepime for antimicrobial coverage. Continue 1/2NS, but add 20mEq KCl as potassium decreased. Discussed with about patients status. Hope to see functional improvements once sodium normalized and abscess resolved. Uncertain if swallow function will return. Discussed about Feeding Tube, but too early to make decision about this now. Asked to think about his wishes for feeding tube if swallow function not improving once acute needs resolved. 05/02/17 Sodium unchanged at 161. Potassium increased to 3.4. Creatinine improved to 1.5. Change IVF to D5W with 20KCL at 100cc/hr to help improve sodium. Continue cefepime for coverage of scrotal abscess - not seeing sighs of systemic process due to abscess. I/D planned on 05/05 by urology. Continue Aquacel AG covered with ABD pad as per wound team. Speech working with swallow. Possible PT/OT in near future once mentation improved. Hope to see improvement in mentation as sodium normalizes. 05/03/17 Sodium decreased to 154 with potassium improved to 3.6. Creatinine 1.3 this am. WBC 6.3. Continue D5W with 20KCL at 100cc/hr to help improve sodium. Continue cefepime for coverage of scrotal abscess. I/D planned on 05/05 by urology. Continue Aquacel AG covered with ABD pad as per wound team. Will give Lovenox 40mg SQ x1 for DVT prevention. Speech working with swallow-improvement in oral intake noted. With continued encephalopathy, do not feel patient ready for PT/OT at this time. Will check Vitamin B12 secondary to macrocytosis and encephalopathy. 05/04/17. Sodium continues to trend down at 152. Potassium stable at 3.7. WBC stable at 5.3. Creatinine 1.2. Continue D5W with 20KCL at 100cc/hr to help improve sodium. Will recheck BMP in AM to monitor electrolytes and renal function. Weight trending up. Continue to monitor closely for fluid overload. Continue cefepime for coverage of scrotal abscess. I/D planned on 05/05 by urology. Continue Aquacel AG covered with ABD pad as per wound team. Will hold Lovenox today due to anticipated I&D tomorrow and would recommend considering restarting Lovenox following procedure for DVT prophylaxis. Encourage SCDs. Increased sedation today per family. Medication list reviewed. Morphine decreased to 1mg Q3-4 hours PRN. Monitor closely for improvement in alertness. Speech working with swallow-improvement in oral intake noted. With continued encephalopathy, do not feel patient ready for PT/OT at this time. Will check Vitamin B12 secondary to macrocytosis and encephalopathy - results pending. 05/05/17 Underwent I/D of right scrotal abscess with debridement of necrotic tissue - right testicle removed. Wound team reconsulted secondary to open wound of right scrotum. Sodium decreased to 146. Will continue with D5W with 20 KCL, but decrease rate to 75cc/hr. Continue with speech therapy to help swallow function. Will have PT/OT evaluate tomorrow to work on improving strength. Now that sodium approaching normal, hope mentation will clear. B12 level pending. Potentially can restart Coumadin protocol tomorrow. 05/07 Asked nursing staff to have Speech therapy work with PO intake today Underwent I/D of right scrotal abscess with debridement of necrotic tissue - right testicle removed on 05/05/2017. Wound team to manage scrotal wound and dressing changes Continues to be agitated requiring one to one care. ?morphine related Lovenox contraindicated given thrombocytopenia 05/08 Still markedly encephalopathic; last Morphine on 05/04 at 0117 and last Ativan on 05/07 at 0021. Admission head CT showed moderate atrophy without acute findings. He's been off anticoagulants since 05/03/17 and w/ history of a-fib he is at higher risk of stroke. If encephalopathy does not improve soon, consider repeating head CT. N/V x2; abdominal xray reviewed - moderate amount of stool with large rectal stool ball. Will ask nursing to attempt disimpaction; could try fleet's enema. Concerned about patient's ability to cooperate with aggressive measures. Continue wound care for recent testicular resection/wound. Continue Cefepime. Thrombocytopenia persists with plt count of 79 Continue PPN. Unable to take in anything PO.
[2017-05-08] MEDS ORDERED: FLEET PHOSPHO - SODA ENEMA 133ml PR PRN (14:37)
--- NOTE | 2017-05-08 17:53 | CT Scan Report ---
Indication: encephalopathy PROCEDURE: CT head/brain wo con: Encounter: Initial Comparison: April 29, 2017 Technique: Axial CT images through the head were performed without contrast. Iterative Reconstruction dose reducing technique was utilized. FINDINGS: Moderate to severe generalized atrophy. The ventricles are stable. Basal ganglia lacunar infarcts. There are scattered areas of low attenuation in the white matter which most likely represent changes from chronic microvascular ischemia. The brainstem, cerebellum, and cerebral hemispheres otherwise have a normal morphology and CT attenuation. There is no evidence of midline displacement. No hemorrhage, signs of acute territorial stroke, mass effect, mass lesions, or edema is evident. The visualized portions of the skull base, midface, and calvarium demonstrate no abnormality. The paranasal sinuses are well aerated and free of significant disease. The tympanic and mastoid cavities appear normal. Heavy calcification of the basilar artery. IMPRESSION: No acute intracranial abnormality or hemorrhage. There is a preliminary report by [facility]. .
[2017-05-08] MEDS: FAT EMULSION 20% 500 ML IV SCH (19:13)
[2017-05-08] MEDS: [UNRECOGNIZED DRUG - OTHER] IV SCH (19:14)
[2017-05-08] MEDS: MULTI VIT INFUSION IV SCH (19:14)
[2017-05-08] MEDS: LIDOCAINE 5% PATCH TOP SCH (19:14)
[2017-05-08] MEDS: POTASSIUM CHLORIDE IV SCH (19:14)
[2017-05-08] MEDS: MULTI TRACE ELEMENTS IV SCH (19:14)
[2017-05-08] MEDS: LIDOCAINE PATCH REMOVAL TOP SCH (21:07)
[2017-05-08] MEDS: NS FLUSH BAG 500ml IV PRN (22:36)
[2017-05-09] MEDS: ACETAMINOPHEN 500 MG TABLET PO SCH ×6 (00:45→21:59)
[2017-05-09] MEDS: CEFEPIME 1 GM in NS 100 ML IV SCH ×2 (07:33→14:13)
[2017-05-09] MEDS: CLOTRIMAZOLE 10 MG TROCHE MM SCH ×5 (08:08→21:59)
--- NOTE | 2017-05-09 08:09 | XRay Report ---
Indication: dyspnea, emesis, rule out aspiration PROCEDURE: XR chest 1V: Encounter: Initial Comparison: April 29, 2017 FINDINGS: The lungs are clear. There is no abnormal airspace opacity, pleural effusion or pneumothorax identified. The heart size, pulmonary vasculature and mediastinum are stable. IMPRESSION: Stable chest without acute cardiopulmonary abnormality. .
--- NOTE | 2017-05-09 08:12 | CT Scan Report ---
Indication: possible stridor PROCEDURE: CT soft tissue neck wo con: Encounter: Initial Technique: Axial noncontrast CT imaging through the neck was performed with coronal and sagittal two-dimensional reformats. Automated Exposure Control and Iterative Reconstruction dose reducing techniques were utilized. Comparison: None Findings: The lung apices are clear. There is wall thickening of the upper to mid esophagus. This is fairly diffuse. There are prominent AP window lymph nodes also seen and incompletely evaluated. No lymphadenopathy or mass seen in the neck. The salivary glands appear normal and symmetric. Vascular calcifications. Bone windows show degenerative change in the spine. Trachea is patent without focal mucus, debris or obstruction. The proximal mainstem bronchi are widely patent. Impression: Esophageal thickening could be due to esophagitis or possibly neoplasm. Recommend upper endoscopy. There is a preliminary report by [facility]. Esophageal wall thickening is not mentioned on the preliminary report. .
--- NOTE | 2017-05-09 08:16 | Progress Note ---
- Date 05/09/17 Subjective: LEENA was sleeping in bed. I could not arouse him with verbal or gentle touch. He had sonorous respirations and was a mouth breather, but was not in obvious respiratory distress. He is maintaining saturations on room air. He moved both of his upper extremities, left more so than right, but the movements were random and did not seem intentional. Objective Vital signs: Temperature 97.9 F 05/09/17 07:39 Pulse Rate 76 05/09/17 07:39 Respiratory Rate 18 05/09/17 07:39 Blood Pressure 122/67 05/09/17 07:39 Pulse Oximetry 96 05/09/17 07:39 Height/Weight/BMI: Height 1.83 m Weight 68 kg Body Mass Index 19.8 - Constitutional Present: thin - Routine HEENT Exam ENT: Present: mucous membranes dry - Routine Respiratory Exam Comments: Difficult to auscultate breath sounds because of sonorous respirations - Routine Cardiovascular Exam Present: RRR - Routine Abdominal Exam Present: soft, normoactive bowel sounds, non distended, non tender - Routine Extremities Exam Present: no edema, pulses intact - Routine Skin Exam Present: dry, warm - Routine Neurological Exam Absent: alert, oriented X3 - Routine Psychiatric Exam Present: unable to assess Results - Labs CBC & Chem 7: 05/09/17 04:49 05/09/17 04:49 - ABG Interpretation ABG results: 05/08/17 19:10 ABG pH 7.500 H ABG pCO2 28 L ABG pO2 71 L ABG HCO3 22 ABG Total CO2 22.7 L ABG O2 Saturation 95.0 ABG Base Excess -0.4 Assessment and Plan (1) Dehydration Current visit: Yes Status: Acute (2) Open wound of scrotum Current visit: Yes Status: Acute (3) Scrotal abscess Current visit: Yes Status: Acute (4) Hypernatremia Current visit: Yes Status: Acute Assessment and Plan: Assessment Scrotal abscess (right) - Testicular pain and swelling secondary Necrotic right testicle, extensive necrosis involving the subcutaneous tissue -I &D with right testicular resection by Dr. 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 Anemia, acute. 05/09 Plan Still markedly encephalopathic; head CT was repeated yesterday showing moderate to severe atrophy but no acute findings. With minimal improvement in encephalopathy, will consult Dr. Cruz. He may need an MRI and or EEG. We will hold any centrally acting medications including benzodiazepines and narcotics - these had been discontinued, however, Ativan was reordered this morning and he received a 1 mg dose at 0235. RN was able to minimally disimpact fecal stool burden and administer fleets enema yesterday. Platelet count decreased again today to 60,000. There is also been an increase in the lining creatinine up to 49 and 1.5. His urine has been dark afviola to tea- colored, and he has been oliguric. Yesterday he averaged 12 mL per kilo per hour. We'll give 500 cc bolus of normal saline. Continue PPN. Continue cefepime and wound care. Discussed with Dr. Cruz - he will assess Mr. Barron today. 05/09/2017-6:50 PM-I reviewed this chart, the patient history, and the SAUSAGE INSPECTOR's/PA 's documented findings as above. We discussed and formulated the assessment and plan as above with the additions below.-Dr. Whitlock The patient was seen earlier today and then again this evening. He continues to be obtunded. He did receive Ativan 1 mg IV in the middle of the night for agitation. I did ask Dr. Cruz to see the patient regarding his obtundation. He did recommend MRI of the brain without contrast. This was obtained and was somewhat suboptimal secondary to the patient's movement, but no significant abnormalities were seen, including no stroke or hemorrhage. I notified Dr. Cruz of the results and he recommended continued treatment and consideration for EEG on Friday if the patient was still obtunded. He would recommend an EEG earlier, if the patient had signs of seizure, which she has not. On my exam both times today, the patient was obtunded. He would respond to voice and noxious stimuli but would not wake up or attempt to answer questions. He has sonorous breathing. CT neck done last night did not show any airway obstruction. Chest reveals no crackles or wheezes. Cardiovascular reveals a regular rate and rhythm. Abdomen is soft and nontender. I did not examine the wound. No from yesterday stated that the wound looked beefy red and looked good. Extremities are free of edema. Impression and plan Continued obtundation, likely secondary to underlying dementia, Ativan and acute medical illness. Regarding the patient's wound-I did ask Dr. Zamudio to evaluate the wound tomorrow and see if we need to continue antibiotics and see if it appears infected or necrotic which may contribute to the patient's obtundation. Regarding the thrombocytopenia-discussed with pharmacist, we'll discontinue cefepime. Will start Zosyn for now. If wound looks okay tomorrow and Dr. Zamudio is in agreement, could discontinue antibiotics and monitor. Both the patient's and daughter were here this evening and I updated them on his current condition and plans. They are in agreement with current plans. DVT Prophylaxis: SCD's Resuscitation Status: Do Not Resuscitate - Time spent with patient Time with patient PN: 35 minutes - Physician Narrative Narrative: Date: 05/09/17 Time: 08 Hospital Course Summary Disclaimer: The visit summary below is not to be considered part of the above Progress Note. Hospital Course: 04/29/16 hospital admission Admit inpatient to the medical floor under the hospitalist service, Dr. Correia attending. It is expected his stay will exceed 2 overnights given his significant dehydration, likelihood of testicular abscess, and general debility. Bailey catheter inserted in ER secondary to acute kidney injury. Testicular sonogram for definitive diagnosis of testicular swelling. Will need urological consult, but will await sono results. Will not proceed with wound culture as there was stool covering the entire wound area. Would defer culture to be taken at time of I&D if this is truly an abscess. First dose of cefepime given an ER. Continue 1 g every 6 hours. Half normal saline started in ER, will continue for rehydration and hypernatremia and acute kidney injury. CT head was performed in the ER for altered mental status. Essentially negative. Patient is on Coumadin for A. fib; however, this will be held given his INR of greater than 10. Vitamin K 10 mg given on admission. Pharmacy to manage Coumadin when it is resumed. Speech consult to determine swallowing status and assist in making dietary recommendations. Patient requests DO NOT RESUSCITATE CODE STATUS Care to return to Dr. Billings upon dismissal. 04/30/17 Testicular sono showing abscess on right side - consult placed with Dr Rojas for evaluation and drainage. Obtain CT to exclude extension of abscess. Continue with cefepime for antimicrobial coverage. Sodium with gradual decrease to 163. Creatinine with decrease to 2.3. Continue 1/2NS at 100 cc/hr for hydration and to normalize sodium. INR with decrease to 7.3 - Vitamin K 5mg x1. Coumadin not restarted due to elevated INR. Daily INRs. Speech to check swallow function. Recheck BMP in am secondary to hypernatremia and NIKKO. Will recheck CBC in am due to scrotal abscess. 05/01/17 Sodium with gradual decrease to 161 with potassium 3.2. Creatinine improved to 1.8. Mentation and oral drive still diminished. Working with Speech-therapeutic NPO recommended. With sodium elevated, patient not ready to work with PT/OT yet. INR decreased to 1.44. Will hold on restarting Coumadin as planning I/D of scrotal abscess on 05/05. Wound team recommending Aquacel AG covered with ABD pad. Continue with cefepime for antimicrobial coverage. Continue 1/2NS, but add 20mEq KCl as potassium decreased. Discussed with about patients status. Hope to see functional improvements once sodium normalized and abscess resolved. Uncertain if swallow function will return. Discussed about Feeding Tube, but too early to make decision about this now. Asked to think about his wishes for feeding tube if swallow function not improving once acute needs resolved. 05/02/17 Sodium unchanged at 161. Potassium increased to 3.4. Creatinine improved to 1.5. Change IVF to D5W with 20KCL at 100cc/hr to help improve sodium. Continue cefepime for coverage of scrotal abscess - not seeing sighs of systemic process due to abscess. I/D planned on 05/05 by urology. Continue Aquacel AG covered with ABD pad as per wound team. Speech working with swallow. Possible PT/OT in near future once mentation improved. Hope to see improvement in mentation as sodium normalizes. 05/03/17 Sodium decreased to 154 with potassium improved to 3.6. Creatinine 1.3 this am. WBC 6.3. Continue D5W with 20KCL at 100cc/hr to help improve sodium. Continue cefepime for coverage of scrotal abscess. I/D planned on 05/05 by urology. Continue Aquacel AG covered with ABD pad as per wound team. Will give Lovenox 40mg SQ x1 for DVT prevention. Speech working with swallow-improvement in oral intake noted. With continued encephalopathy, do not feel patient ready for PT/OT at this time. Will check Vitamin B12 secondary to macrocytosis and encephalopathy. 05/04/17. Sodium continues to trend down at 152. Potassium stable at 3.7. WBC stable at 5.3. Creatinine 1.2. Continue D5W with 20KCL at 100cc/hr to help improve sodium. Will recheck BMP in AM to monitor electrolytes and renal function. Weight trending up. Continue to monitor closely for fluid overload. Continue cefepime for coverage of scrotal abscess. I/D planned on 05/05 by urology. Continue Aquacel AG covered with ABD pad as per wound team. Will hold Lovenox today due to anticipated I&D tomorrow and would recommend considering restarting Lovenox following procedure for DVT prophylaxis. Encourage SCDs. Increased sedation today per family. Medication list reviewed. Morphine decreased to 1mg Q3-4 hours PRN. Monitor closely for improvement in alertness. Speech working with swallow-improvement in oral intake noted. With continued encephalopathy, do not feel patient ready for PT/OT at this time. Will check Vitamin B12 secondary to macrocytosis and encephalopathy - results pending. 05/05/17 Underwent I/D of right scrotal abscess with debridement of necrotic tissue - right testicle removed. Wound team reconsulted secondary to open wound of right scrotum. Sodium decreased to 146. Will continue with D5W with 20 KCL, but decrease rate to 75cc/hr. Continue with speech therapy to help swallow function. Will have PT/OT evaluate tomorrow to work on improving strength. Now that sodium approaching normal, hope mentation will clear. B12 level pending. Potentially can restart Coumadin protocol tomorrow. 05/07 Asked nursing staff to have Speech therapy work with PO intake today Underwent I/D of right scrotal abscess with debridement of necrotic tissue - right testicle removed on 05/05/2017. Wound team to manage scrotal wound and dressing changes Continues to be agitated requiring one to one care. ?morphine related Lovenox contraindicated given thrombocytopenia 05/08 Still markedly encephalopathic; last Morphine on 05/04 at 0117 and last Ativan on 05/07 at [address]. Ad[address] head CT showed moderate atrophy without acute findings. He's been off anticoagulants since 05/03/17 and w/ history of a-fib he is at higher risk of stroke. CT repeated - no acute findings N/V x2; abdominal xray reviewed - moderate amount of stool with large rectal stool ball. Will ask nursing to attempt disimpaction; could try fleet's enema. Concerned about patient's ability to cooperate with aggressive measures. Continue wound care for recent testicular resection/wound. Continue Cefepime. Thrombocytopenia persists with plt count of 79 Continue PPN. Unable to take in anything PO. 05/09 Still markedly encephalopathic; head CT was repeated yesterday showing moderate to severe atrophy but no acute findings. With minimal improvement in encephalopathy, will consult Dr. Cruz. He may need an MRI and or EEG. We will hold any centrally acting medications including benzodiazepines and narcotics - these had been discontinued, however, Ativan was reordered this morning and he received a 1 mg dose at 0235. RN was able to minimally disimpact fecal stool burden and administer fleets enema yesterday. Platelet count decreased again today to 60,000. There is also been an increase in the lining creatinine up to 49 and 1.5. His urine has been dark faviola to tea- colored, and he has been oliguric. Yesterday he averaged 12 mL per kilo per hour. We'll give 500 cc bolus of normal saline. Continue PPN. Continue cefepime and wound care. Addendum entered and electronically signed by Eri Maciel, MEGHAN 05/09/17 14: 36: I paged Dr. Rojas twice but have been unsuccessful in reaching him - will try to reach him through a [facility]. Wanted to discuss further wound care, antibiotic options, since Cefepime can cause thrombocytopenia. I evaluated the wound during nursing wound change. He has a large open cavity to the right scrotum with minimal bleeding. The wound bed is mostly pink in color with some paler-appearing areas, possibly granulation tissue. There was not any visible purulent drainage or necrosis. The wound was repacked by the RN. However, there is concern about infection - the patient had a loose stool prior to wound change , and he is at high risk for cross contamination of the recent surgical site. With persistent encephalopathy, inability to communicate, inability to follow commands, he is incapable of making any medical decisions at this time. He does not have mental capacity to participate in conversation regarding treatment plans or goals of care discussions.
[2017-05-09] MEDS ORDERED: SODIUM CHLORIDE IV ONE (09:00)
--- NOTE | 2017-05-09 09:16 | Pharmacy Consult-TPN/PPN ---
Pharmacy Consult-TPN/PPN - Laboratory Information Chemistry Turbidity < 20.0 (0-20) 05/09/17 04:49 Sodium 136 MEQ/L (134-144) 05/09/17 04:49 Potassium 3.9 MEQ/L (3.6-5) 05/09/17 04:49 Chloride 107 MEQ/L (98-107) 05/09/17 04:49 Carbon Dioxide 20 MEQ/L (22-30) L 05/09/17 04:49 Anion Gap 9 MEQ/L (5-15) 05/09/17 04:49 BUN 49.0 MG/DL (9-20) H D 05/09/17 04:49 Creatinine 1.5 MG/DL (0.8-1.5) D 05/09/17 04:49 GFR Calculation 45 05/09/17 04:49 BUN/Creatinine Ratio 33 RATIO (6-26) H 05/09/17 04:49 Glucose 112 MG/DL (75-110) H 05/09/17 04:49 Glucometer 104 mg/dL (65-110) 05/05/17 05:44 Calculated Osmolality 276 MOSM/KG (261-280) 05/09/17 04:49 Calcium 8.2 MG/DL (8.4-10.2) L 05/09/17 04:49 Phosphorus 2.8 MG/DL (2.5-4.5) 05/07/17 04:11 Magnesium 1.8 MG/DL (1.6-2.3) 05/07/17 04:11 Total Bilirubin 1.50 MG/DL (0.20-1.30) H 05/08/17 15:32 Conjugated Bilirubin 0.00 MG/DL (0.00-0.30) 05/08/17 15:32 Unconjugated Bilirubin 0.90 MG/DL (0.00-1.1) 05/08/17 15:32 Icterus Index < 2 (0-7) 05/09/17 04:49 AST 31 U/L (17-59) 05/08/17 15:32 ALT 43 U/L (21-72) 05/08/17 15:32 Alkaline Phosphatase 87 U/L (38-126) 05/08/17 15:32 Ammonia < 9 UMOL/L (9-33) L 05/08/17 15:32 Troponin I 0.077 ng/ml (0-0.12) 04/29/17 14:17 Total Protein 6.5 G/DL (6.3-8.2) 05/08/17 15:32 Albumin 3.2 G/DL (3.5-5.0) L 05/08/17 15:32 Globulin 3.3 G/DL (2.4-3.6) 05/08/17 15:32 Albumin/Globulin Ratio 1.0 RATIO (1.1-2.2) L 05/08/17 15:32 Prealbumin 16.8 MG/DL (17.6-36.0) L 05/07/17 04:11 Plasma Lactate 2.1 MMOL/L (0.6-2.2) 04/29/17 18:10 Vitamin B12 813 PG/ML (239-931) 05/04/17 04:12 Specimen Hemolysis < 15 (0-25) 05/09/17 04:49 Intake and Output 05/08/17 05/09/17 05/10/17 06:59 06:59 06:59 Intake Total 2350.000 / 2350.000 2274.25 / 2274.25 266.25 / 266.25 Output Total 1900 / 1900 500 / 500 Balance 450.000 / 076.970 3186.25 / 1774.25 266.25 / 266.25 Weight 68.3 kg 68.8 kg 68 kg Intake: IV 2350.000 / 2350.000 2274.25 / 2274.25 266.25 / 266.25 Cefepime 1 gm In Ns 100 ml @ 400 / 400 200 / 200 100 / 100 200 mls/hr IV Q8H [facility] Rx#: [id number] Fat Emulsion 20% 500 ml @ 50 500.000 / 500.000 500 / 500 mls/hr IV 1600 [facility] Rx#: [id number] Multi-Vit Infusion 10 ml Multi 926.25 / 926.25 816.75 / 816.75 -Trace Elements 1 ml In Ppn - Standard Formula 2,000 ml @ 75 mls/hr IV .Q24H [facility] Rx#: [id number] Multi-Vit Infusion 10 ml Multi 757.5 / 757.5 166.25 / 166.25 -Trace Elements 1 ml Potassium Chloride Inj 20 meq In Ppn - Standard Formula 2,000 ml @ 75 mls/hr IV .Q24H [facility] Rx#: [id number] Potassium Chloride Inj 20 meq 523.75 / 523.75 In D5w 1,000 ml @ 75 mls/hr IV .[id number] [facility] Rx#:[id number] Oral 0 / 0 Output: Urine 175 / 175 Emesis 150 / 150 Urine Amount (Catheter) 1750 / 1750 325 / 325 Other: Urine Appearance Cloudy Clear Urine Color Tea Colored Dark Hemalatha Brown Emesis Description Fecal Matter # Unmeasured Emesis Episodes 1 1 - Consult Information Will continue current formula of standard PPN with extra potassium. Rate at 75 mls/hr. Will continue to monitor. Thank you.
[2017-05-09] MEDS: LIDOCAINE 5% PATCH TOP SCH (09:40)
--- NOTE | 2017-05-09 12:08 | Magnetic Resonance Report ---
Indication: obtunded, rule out cva PROCEDURE: MR head/brain wo con: Encounter: Initial Comparisons: Head CT dated May 08, 2017 Technique: Multiplanar, multisequence, MR imaging of the head without contrast was acquired. FINDINGS: Motion artifact limits the exam significantly and is borderline nondiagnostic. Moderate generalized atrophy. The ventricles are proportional to volume loss. No evidence of acute diffusion restriction. No gross masses or intracranial hemorrhage. Scattered white matter lesions in the brain parenchyma consistent with chronic microvascular ischemic disease. IMPRESSION: No acute infarct or acute intracranial hemorrhage. .
--- NOTE | 2017-05-09 14:22 | Consultation ---
DATE OF CONSULTATION 05/09/[address] Whitlock CHIEF COMPLAINT Confusion. HISTORY OF PRESENT ILLNESS Patient is an 81-year-old male with history of cerebrovascular disease, atrial fibrillation, hypertension, hyperlipidemia and possible dementia. He was recently admitted to [facility] for a scrotal abscess on the right side. This was followed by removal of the right testicle due to extensive necrosis of the subcutaneous tissue. This was done by Dr. Rojas on 2017. The patient's condition has not improved since. He has had problems with obtundation and confusion. He has not been able to wake up and have any conversation with family or staff. His lab has shown some improvement since the surgery. He still has elevated BUN and slightly abnormal urine testing. The patient's vitals have been stable. He was having high blood pressure initially and this has improved. He had a CT of the head yesterday that showed no acute abnormalities. On physical examination the patient is obtunded. He tends to open his eyes to verbal and painful stimulation. The patient is moving his left side better than his right side. He has less muscle tone on the right compared to the left. His pupils were reactive to light. The right is 1 mm wider than the left. Deep tendon reflexes were 2/4. Plantar reflexes were in extension bilaterally. The patient has similar reaction to pinprick between the right and left. ASSESSMENT 1. Metabolic encephalopathy associated with dehydration, anesthesia medication and sepsis. This has been intractable to treatment so far. Patient may need to have further time for him to improve by providing good fluid intake and treating any signs of sepsis available. 2. Possible new right sided weakness. Patient may need to have an MRI of the brain to rule out an acute stroke. The patient has a high risk for stroke including history of atrial fibrillation and previous strokes. 3. We cannot rule out baseline dementia which causes the patient to have poor compensation after surgery and infection. PLAN 1. Obtain MRI of the brain without contrast to rule out acute stroke. 2. Provide good fluid intake and continue treatment for sepsis. 3. Avoid any sedating medication including Haldol if possible. 4. Provide physical educational therapy when the patient's condition improves. [facility]
[2017-05-09] MEDS: FAT EMULSION 20% 500 ML IV SCH (16:02)
[2017-05-09] MEDS: MULTI VIT INFUSION IV SCH ×2 (16:44→16:59)
[2017-05-09] MEDS: MULTI TRACE ELEMENTS IV SCH ×2 (16:44→16:59)
[2017-05-09] MEDS: POTASSIUM CHLORIDE IV SCH ×2 (16:44→16:59)
[2017-05-09] MEDS: [UNRECOGNIZED DRUG - OTHER] IV SCH ×2 (16:44→16:59)
[2017-05-09] MEDS ORDERED: HALOPERIDOL 5 MG/ML INJECTION IVP PRN (19:30)
[2017-05-09] MEDS: PIPERACILLIN/TAZOBACTAM 3.375 GM in NS 100 ML IV SCH (21:50)
[2017-05-09] MEDS: LIDOCAINE PATCH REMOVAL TOP SCH (21:58)
[2017-05-10] MEDS: PIPERACILLIN/TAZOBACTAM 3.375 GM in NS 100 ML IV SCH ×4 (02:00→18:12)
[2017-05-10] MEDS: ACETAMINOPHEN 500 MG TABLET PO SCH ×6 (02:59→18:47)
[2017-05-10] MEDS: CLOTRIMAZOLE 10 MG TROCHE MM SCH ×5 (08:21→20:37)
[2017-05-10] MEDS: LIDOCAINE 5% PATCH TOP SCH (08:22)
--- NOTE | 2017-05-10 11:54 | Progress Note ---
- Date 05/10/17 Subjective: The patient was seen earlier this morning in his room. He remains very somnolent. He was noted to have an increase in BUN this morning and a normal saline 500 ML bolus was ordered. He did have about 100 ML's of urine in his urology or when I saw him. No family was present during my visit. He did arouse with loud voice and with stimuli. After my examination, and sitting him upright in bed at about 90, he did become more alert and kept his eyes open for longer period of time. I stated good morning, and asked him how he was feeling, and he did not respond. I later just said "hi!" And he did say that back to me. This is the only response I've been able to get from him. Objective Vital signs: Temperature 98.5 F 05/10/17 11:00 Pulse Rate 70 05/10/17 11:00 Respiratory Rate 20 05/10/17 11:00 Blood Pressure 139/71 05/10/17 11:00 Pulse Oximetry 97 05/10/17 11:00 Height/Weight/BMI: Height 1.83 m Weight 69 kg Body Mass Index 19.8 Comments: Heart rate this morning is 70. At 1 AM it was 101. He is afebrile. Blood pressure 139/71. O2 sat 97% on room air GEN-the patient remains obtunded and confused. He has upper airway rhonchi. When I sat him up in bed at 90, he did have a cough and then would swallow his phlegm. He seemed to be clearing his throat better sitting upright. HEENT-pupils are equal, sclerae are anicteric, oropharynx is moist NECK-supple CV-regular rate and rhythm CHEST-coarse upper airway rhonchi, mild sonorous breathing ABD-soft, nontender with positive bowel sounds -I did not remove his dressing to examine the wound-he does have a Bailey catheter in place Extremities -no edema, SCDs are on NEURO-moves all 4 extremities equally, no facial asymmetry, very obtunded still SKIN-warm and dry Results - Labs CBC & Chem 7: 05/10/17 04:09 05/10/17 04:09 - ABG Interpretation ABG results: 05/08/17 19:10 ABG pH 7.500 H ABG pCO2 28 L ABG pO2 71 L ABG HCO3 22 ABG Total CO2 22.7 L ABG O2 Saturation 95.0 ABG Base Excess -0.4 Assessment and Plan (1) Dehydration Current visit: Yes Status: Acute (2) Open wound of scrotum Current visit: Yes Status: Acute (3) Scrotal abscess Current visit: Yes Status: Acute (4) Hypernatremia Current visit: Yes Status: Acute Assessment and Plan: Assessment Scrotal abscess (right) - Testicular pain and swelling secondary Necrotic right testicle, extensive necrosis involving the subcutaneous tissue -I &D with right testicular resection by Dr. 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 Anemia, acute. 05/10 Plan The patient continues to be obtunded. I was able to get a one-word response from him today. On lab, the patient appears dry. He was given a 500 cc saline bolus earlier this morning and I will repeat it 1 now. Will repeat lab tomorrow. Continue on PPN for nutrition. Thrombocytopenia continues to worsen. We'll monitor. May need transfusion of platelets if worsening. He is not on any heparin products. Continue off of Ativan or narcotics. We'll give scheduled Tylenol for pain. Robb was consulted to evaluate the wound and see if there are signs of infection. We'll repeat KUB today to see if constipation has improved. Possible EEG on Friday if the patient is not improving regarding encephalopathy. White count is 7.4 with 90% neutrophils and 0 bands. The globe is stable at 9.8. - Physician Narrative Narrative: Date: 05/10/17 Time: 1148 Hospital Course Summary Disclaimer: The visit summary below is not to be considered part of the above Progress Note. Hospital Course: 04/29/16 hospital admission Admit inpatient to the medical floor under the hospitalist service, Dr. Correia attending. It is expected his stay will exceed 2 overnights given his significant dehydration, likelihood of testicular abscess, and general debility. Bailey catheter inserted in ER secondary to acute kidney injury. Testicular sonogram for definitive diagnosis of testicular swelling. Will need urological consult, but will await sono results. Will not proceed with wound culture as there was stool covering the entire wound area. Would defer culture to be taken at time of I&D if this is truly an abscess. First dose of cefepime given an ER. Continue 1 g every 6 hours. Half normal saline started in ER, will continue for rehydration and hypernatremia and acute kidney injury. CT head was performed in the ER for altered mental status. Essentially negative. Patient is on Coumadin for A. fib; however, this will be held given his INR of greater than 10. Vitamin K 10 mg given on admission. Pharmacy to manage Coumadin when it is resumed. Speech consult to determine swallowing status and assist in making dietary recommendations. Patient requests DO NOT RESUSCITATE CODE STATUS Care to return to Dr. Billings upon dismissal. 04/30/17 Testicular sono showing abscess on right side - consult placed with Dr Rojas for evaluation and drainage. Obtain CT to exclude extension of abscess. Continue with cefepime for antimicrobial coverage. Sodium with gradual decrease to 163. Creatinine with decrease to 2.3. Continue 1/2NS at 100 cc/hr for hydration and to normalize sodium. INR with decrease to 7.3 - Vitamin K 5mg x1. Coumadin not restarted due to elevated INR. Daily INRs. Speech to check swallow function. Recheck BMP in am secondary to hypernatremia and NIKKO. Will recheck CBC in am due to scrotal abscess. 05/01/17 Sodium with gradual decrease to 161 with potassium 3.2. Creatinine improved to 1.8. Mentation and oral drive still diminished. Working with Speech-therapeutic NPO recommended. With sodium elevated, patient not ready to work with PT/OT yet. INR decreased to 1.44. Will hold on restarting Coumadin as planning I/D of scrotal abscess on 05/05. Wound team recommending Aquacel AG covered with ABD pad. Continue with cefepime for antimicrobial coverage. Continue 1/2NS, but add 20mEq KCl as potassium decreased. Discussed with about patients status. Hope to see functional improvements once sodium normalized and abscess resolved. Uncertain if swallow function will return. Discussed about Feeding Tube, but too early to make decision about this now. Asked to think about his wishes for feeding tube if swallow function not improving once acute needs resolved. 05/02/17 Sodium unchanged at 161. Potassium increased to 3.4. Creatinine improved to 1.5. Change IVF to D5W with 20KCL at 100cc/hr to help improve sodium. Continue cefepime for coverage of scrotal abscess - not seeing sighs of systemic process due to abscess. I/D planned on 05/05 by urology. Continue Aquacel AG covered with ABD pad as per wound team. Speech working with swallow. Possible PT/OT in near future once mentation improved. Hope to see improvement in mentation as sodium normalizes. 05/03/17 Sodium decreased to 154 with potassium improved to 3.6. Creatinine 1.3 this am. WBC 6.3. Continue D5W with 20KCL at 100cc/hr to help improve sodium. Continue cefepime for coverage of scrotal abscess. I/D planned on 05/05 by urology. Continue Aquacel AG covered with ABD pad as per wound team. Will give Lovenox 40mg SQ x1 for DVT prevention. Speech working with swallow-improvement in oral intake noted. With continued encephalopathy, do not feel patient ready for PT/OT at this time. Will check Vitamin B12 secondary to macrocytosis and encephalopathy. 05/04/17. Sodium continues to trend down at 152. Potassium stable at 3.7. WBC stable at 5.3. Creatinine 1.2. Continue D5W with 20KCL at 100cc/hr to help improve sodium. Will recheck BMP in AM to monitor electrolytes and renal function. Weight trending up. Continue to monitor closely for fluid overload. Continue cefepime for coverage of scrotal abscess. I/D planned on 05/05 by urology. Continue Aquacel AG covered with ABD pad as per wound team. Will hold Lovenox today due to anticipated I&D tomorrow and would recommend considering restarting Lovenox following procedure for DVT prophylaxis. Encourage SCDs. Increased sedation today per family. Medication list reviewed. Morphine decreased to 1mg Q3-4 hours PRN. Monitor closely for improvement in alertness. Speech working with swallow-improvement in oral intake noted. With continued encephalopathy, do not feel patient ready for PT/OT at this time. Will check Vitamin B12 secondary to macrocytosis and encephalopathy - results pending. 05/05/17 Underwent I/D of right scrotal abscess with debridement of necrotic tissue - right testicle removed. Wound team reconsulted secondary to open wound of right scrotum. Sodium decreased to 146. Will continue with D5W with 20 KCL, but decrease rate to 75cc/hr. Continue with speech therapy to help swallow function. Will have PT/OT evaluate tomorrow to work on improving strength. Now that sodium approaching normal, hope mentation will clear. B12 level pending. Potentially can restart Coumadin protocol tomorrow. 05/07 Asked nursing staff to have Speech therapy work with PO intake today Underwent I/D of right scrotal abscess with debridement of necrotic tissue - right testicle removed on 05/05/2017. Wound team to manage scrotal wound and dressing changes Continues to be agitated requiring one to one care. ?morphine related Lovenox contraindicated given thrombocytopenia 05/08 Still markedly encephalopathic; last Morphine on 05/04 at 0117 and last Ativan on 05/07 at [address]. Ad[address] head [address] showed moderate atrophy without acute findings. He's been off anticoagulants since 05/03/17 and w/ history of a-fib he is at higher risk of stroke. CT repeated - no acute findings N/V x2; abdominal xray reviewed - moderate amount of stool with large rectal stool ball. Will ask nursing to attempt disimpaction; could try fleet's enema. Concerned about patient's ability to cooperate with aggressive measures. Continue wound care for recent testicular resection/wound. Continue Cefepime. Thrombocytopenia persists with plt count of 79 Continue PPN. Unable to take in anything PO. 05/09 Still markedly encephalopathic; head CT was repeated yesterday showing moderate to severe atrophy but no acute findings. With minimal improvement in encephalopathy, will consult Dr. Cruz. He may need an MRI and or EEG. We will hold any centrally acting medications including benzodiazepines and narcotics - these had been discontinued, however, Ativan was reordered this morning and he received a 1 mg dose at 0235. RN was able to minimally disimpact fecal stool burden and administer fleets enema yesterday. Platelet count decreased again today to 60,000. There is also been an increase in the lining creatinine up to 49 and 1.5. His urine has been dark faviola to tea- colored, and he has been oliguric. Yesterday he averaged 12 mL per kilo per hour. We'll give 500 cc bolus of normal saline. Continue PPN. Continue cefepime and wound care.
[2017-05-10] MEDS: ACETAMINOPHEN 650 MG SUPPOSITORY PR SCH ×3 (13:40→20:38)
--- NOTE | 2017-05-10 14:46 | XRay Report ---
Indication: recent stool ball seen in rectum PROCEDURE: XR abdomen 2V: Encounter: Initial Comparison: 05/08/2017 Findings: The included portions of the lung bases are clear. Heart size normal. No pleural effusion. There is scattered gas and stool in the abdomen without evidence of obstruction or free air. There is moderate stool in the rectal vault without clear fecal impaction. No soft tissue mass or organomegaly. No definite bony destructive process. There is mild levoscoliosis of the lumbar spine. There are moderate vascular calcifications. IMPRESSION: No evidence for obstruction or perforation. Moderate stool in the rectal vault without clear fecal impaction. .
[2017-05-10] MEDS: FAT EMULSION 20% 500 ML IV SCH (15:14)
--- NOTE | 2017-05-10 15:38 | Pharmacy Consult-TPN/PPN ---
Pharmacy Consult-TPN/PPN - Laboratory Information Chemistry Turbidity < 20 (0-20) 05/10/17 04:09 Sodium 139 MEQ/L (134-144) 05/10/17 04:09 Potassium 4.1 MEQ/L (3.6-5) 05/10/17 04:09 Chloride 111 MEQ/L (98-107) H 05/10/17 04:09 Carbon Dioxide 19 MEQ/L (22-30) L 05/10/17 04:09 Anion Gap 9 MEQ/L (5-15) 05/10/17 04:09 BUN 58.0 MG/DL (9-20) H* 05/10/17 04:09 Creatinine 1.5 MG/DL (0.8-1.5) 05/10/17 04:09 GFR Calculation 45 05/10/17 04:09 BUN/Creatinine Ratio 39 RATIO (6-26) H 05/10/17 04:09 Glucose 90 MG/DL (75-110) 05/10/17 04:09 Glucometer 115 mg/dL (65-110) 05/09/17 08:17 Calculated Osmolality 284 MOSM/KG (261-280) H 05/10/17 04:09 Calcium 8.2 MG/DL (8.4-10.2) L 05/10/17 04:09 Phosphorus 2.8 MG/DL (2.5-4.5) 05/07/17 04:11 Magnesium 1.8 MG/DL (1.6-2.3) 05/07/17 04:11 Total Bilirubin 1.50 MG/DL (0.20-1.30) H 05/08/17 15:32 Conjugated Bilirubin 0.00 MG/DL (0.00-0.30) 05/08/17 15:32 Unconjugated Bilirubin 0.90 MG/DL (0.00-1.1) 05/08/17 15:32 Icterus Index < 2 (0-7) 05/10/17 04:09 AST 31 U/L (17-59) 05/08/17 15:32 ALT 43 U/L (21-72) 05/08/17 15:32 Alkaline Phosphatase 87 U/L (38-126) 05/08/17 15:32 Ammonia < 9 UMOL/L (9-33) L 05/08/17 15:32 Troponin I 0.077 ng/ml (0-0.12) 04/29/17 14:17 Total Protein 6.5 G/DL (6.3-8.2) 05/08/17 15:32 Albumin 3.2 G/DL (3.5-5.0) L 05/08/17 15:32 Globulin 3.3 G/DL (2.4-3.6) 05/08/17 15:32 Albumin/Globulin Ratio 1.0 RATIO (1.1-2.2) L 05/08/17 15:32 Prealbumin 16.8 MG/DL (17.6-36.0) L 05/07/17 04:11 Plasma Lactate 2.1 MMOL/L (0.6-2.2) 04/29/17 18:10 Vitamin B12 813 PG/ML (239-931) 05/04/17 04:12 Specimen Hemolysis < 15 (0-25) 05/10/17 04:09 Intake and Output 05/09/17 05/10/17 05/11/17 06:59 06:59 06:59 Intake Total 2274.25 / 2274.25 2533.75 / 2533.75 2322.75 / 2322.75 Output Total 500 / 500 1999 / 1999 1050 / 1050 Balance 1774.25 / 1774.25 533.75 / 533.75 1272.75 / 1272.75 Weight 68.8 kg 68 kg 69 kg Intake: IV 2274.25 / 2274.25 2533.75 / 2533.75 2322.75 / 2322.75 Cefepime 1 gm In Ns 100 ml @ 200 / 200 200 / 200 200 mls/hr IV Q8H [facility] Rx#: [id number] Fat Emulsion 20% 500 ml @ 50 500 / 500 500 / 500 mls/hr IV 1600 [facility] Rx#: [id number] Multi-Vit Infusion 10 ml Multi 816.75 / 816.75 -Trace Elements 1 ml In Ppn - Standard Formula 2,000 ml @ 75 mls/hr IV .Q24H [facility] Rx#: [id number] Multi-Vit Infusion 10 ml Multi 757.5 / 757.5 1133.75 / 1133.75 1122.75 / 1122.75 -Trace Elements 1 ml Potassium Chloride Inj 20 meq In Ppn - Standard Formula 2,000 ml @ 75 mls/hr IV .Q24H [facility] Rx#: [id number] NS 500ml 500 ml @ 250 mls/hr IV 500 / 500 1000 / 1000 .Q2H [facility] Rx#:[id number] Piperacillin/Tazobactam 3.375 200 / 200 200 / 200 gm In Ns 100 ml @ 200 mls/hr IV Q6H [facility] Rx#:[id number] Output: Urine 175 / 175 Urine Amount (Catheter) 325 / 325 1999 / 1999 1050 / 1050 Other: Urine Appearance Clear Clear Sediment Urine Color Dark Hemalatha Light Hemalatha Tea Colored Brown Urine Odor Foul Stool Color Brown Stool Consistency Soft Emesis Description Fecal Matter Size of Bowel Movement Smear # Unmeasured Emesis Episodes 1 - Consult Information PPN consult: day 4 Chloride level is above normal range. Remove additional KCl from formula starting with next bag hung. Standard formula PPN at 75 ml/hr. Thank you, Natalee Peck [facility]
[2017-05-10] MEDS ORDERED: MULTI-VIT INFUSION 10 ML, MULTI-TRACE ELEMENTS 1 ML in PPN - STANDARD FORMULA 2,000 ML IV SCH (16:00)
--- NOTE | 2017-05-10 16:34 | Consultation ---
DATE OF CONSULTATION 05/10/2017 CONSULTING PHYSICIAN Rick Zamudio MD REQUESTING PHYSICIAN Dr. Michelle Whitlock REASON FOR CONSULTATION Check scrotal wound. LATIA Vega is an 81-year-old male who had a right scrotal incision and drainage with right orchiectomy and debridement of necrotic tissue on 05/05/[address] Rojas. The patient has had an open wound of the right hemiscrotum. He has remained very somnolent and has even had Neurology consult for evaluation. It was unclear if his wound was continuing to cause ongoing sepsis via infection and I was asked to evaluate the wound. The patient is nonresponsive to verbal stimuli currently and so questioning was unable to be completed. Information is gathered from the chart. PAST MEDICAL HISTORY 1. Hypertension. 2. Stroke. 3. Atrial fibrillation. 4. Hyperlipidemia. 5. Gastroesophageal reflux disease. PAST SURGICAL HISTORY 1. Incision and drainage of the right scrotum, right orchiectomy, debridement of necrotic tissue - 05/05/[address] Yordan Rojas at [facility]. 2. Inguinal herniorrhaphy x 2. 3. Bilateral cataract extraction. ALLERGIES The patient's multiple allergies were reviewed. See the medical record. MEDICATIONS The patient's current medications were reviewed. See the hospital MAR. He is on Zosyn. FAMILY HISTORY Father of a CVA, mother of a ruptured abdominal aortic aneurysm. SOCIAL HISTORY The patient is . He is a never-smoker. He does not drink or use illicit drugs. He is retired. Dr. Billings is his PCP. REVIEW OF SYSTEMS Review of systems unobtainable due to patient's mental status. LABORATORY DATA White blood cell count 7.4 with 80% neutrophils. PHYSICAL EXAMINATION VITAL SIGNS: Temperature 98.5, pulse 70, blood pressure 139/71, respiratory rate 20, oxygen saturation 97% on room air. GENERAL: The patient is sitting in bed and is in no acute distress. He barely opens his eyes to stimuli. He is moving around somewhat. He is not verbal. HEART: Regular rate and rhythm. LUNGS: Clear to auscultation bilaterally. ABDOMEN: Soft, nontender, nondistended. GENITOURINARY: There is an open wound in the right hoda scrotum. The testicle is absent. The wound shows no evidence of active infection. There is healthy granulation tissue throughout the wound. The packing was replaced. EXTREMITIES: No clubbing, cyanosis or edema. NEUROLOGIC: The patient is moving all four extremities. PSYCHIATRIC: Unable to evaluate. IMPRESSION Status post right scrotal incision and drainage and orchiectomy on 05/05/2017 - his wound does appear to be healing appropriately without evidence of ongoing infection. RECOMMENDATIONS 1. Continue daily packing changes by the nursing staff. 2. I do not think that his wound is the source of ongoing sepsis. 3. I will sign off of his case. The wound team will be available next week. ANAI
[2017-05-10] MEDS: LIDOCAINE PATCH REMOVAL TOP SCH (20:52)
[2017-05-11] MEDS: ACETAMINOPHEN 500 MG TABLET PO SCH ×6 (01:51→21:44)
[2017-05-11] MEDS: PIPERACILLIN/TAZOBACTAM 3.375 GM in NS 100 ML IV SCH ×4 (01:52→19:03)
--- NOTE | 2017-05-11 11:02 | Progress Note ---
- Date 05/11/17 Subjective: Patient is seen today in follow up. He is obtunded. Is restless, moans when I examine him, but does not otherwise respond. Labs are reviewed, chart reviewed for collateral information. UTO ROS. Objective Vital signs: Temperature 98.5 F 05/11/17 08:36 Pulse Rate 81 05/11/17 08:36 Respiratory Rate 24 05/11/17 08:36 Blood Pressure 167/84 H 05/11/17 08:36 Pulse Oximetry 99 05/11/17 08:36 Height/Weight/BMI: Height 1.83 m Weight 70.2 kg Body Mass Index 19.8 - Constitutional Present: mild distress, disheveled, obtunded - Routine HEENT Exam Head: Present: atraumatic ENT: Present: mucous membranes dry - Routine Respiratory Exam Present: decreased breath sounds. Absent: rales, rhonchi, crackles - Routine Cardiovascular Exam Present: RRR, S1, S2, no murmur - Routine Abdominal Exam Present: soft, non distended, non tender - Routine Exam Comments: Bailey cath in place. - Routine Extremities Exam Present: no edema, non tender - Routine Musculoskeletal Exam Musculoskeletal: Present: no clubbing or cyanosis - Routine Skin Exam Present: intact, dry, warm - Routine Neurological Exam Absent: alert, oriented X3, normal speech - Routine Psychiatric Exam Absent: normal affect, normal thought process Results - Labs CBC & Chem 7: 05/11/17 04:52 05/11/17 04:52 - Imaging and Cardiology Abdominal x-ray Status: image reviewed by me Additional comments: IMPRESSION: No evidence for obstruction or perforation. Moderate stool in the rectal vault without clear fecal impaction. . MRI - head Additional comments: MRI IMPRESSION: No acute infarct or acute intracranial hemorrhage. . Assessment and Plan (1) Dehydration Current visit: Yes Status: Acute (2) Open wound of scrotum Current visit: Yes Status: Acute (3) Scrotal abscess Current visit: Yes Status: Acute (4) Hypernatremia Current visit: Yes Status: Acute Assessment and Plan: Assessment Scrotal abscess (right) - Testicular pain and swelling secondary Necrotic right testicle, extensive necrosis involving the subcutaneous tissue -I &D with right testicular resection by Dr. 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 Anemia, acute. 05/11 Plan Patient remains obtunded w/o clear cause. Appreciate consultants help. Delerium? Will schedule low-dose Haldol IV to see if there is any improvement. If none- will need to change back to PRN. Continue scheduled APAP MI for pain control. Continue antibiotics- afebrile. He is pancytopenic- may need peripheral smear if persists. May need to change Zosyn to alternative medications. Hypernatremia has resolved, but he still appears a bit dry. Will add supplemental IVF. Elevated BUN may indicate that we need to decrease the AA/Protein in the TPN. Pharmacy consulted for TPN management. Consider placing Dubhoff and starting TF. Still has significant stool in rectum. Could consider repeating CT of the pelvis with rectal contrast if persists. Monitor BP- trending up. Overall, remains ill. He continues to be deemed high risk given severity of illness and complexity. 05/11/2017-2:10 PM-I reviewed this chart, the patient history, and the [employer]'s/PA 's documented findings as above. We discussed and formulated the assessment and plan as above with the additions below.-Dr. Whitlock I saw the patient this afternoon in his room. His nurse stated that family members have been there earlier in the day but had gone home. The patient is still not awakening. When I raised the head of his bed and spoke loudly to him he did open his eyes briefly and then closed them again. He does not attempt to answer questions. He continues on PPN. He has a Bailey catheter with good urine output. He is afebrile, blood pressure is 175/88, O2 sat is 98% on room air, heart rate is 64. General this is a thin male who is obtunded. Respirations are sonorous. Pupils are equal and round. Sclerae are anicteric. Oropharynx is mildly dry but he is mouth breathing. Neck is supple. Chest is clear to auscultation. Cardiovascular reveals a regular rate and rhythm. Abdomen is soft and nontender. Extremities reveal no edema. He retracts all extremities to noxious stimuli. I did speak with Dr. Zamudio today and he stated that the wound looked good yesterday and without signs of infection. Lab was reviewed and reveals an increasing BUN and creatinine. Platelets are improved slightly. White count is normal without bandemia. Impression and plan Encephalopathy has not improved. Agree with trying Haldol. Continue to avoid Ativan and narcotics. Consider change to a Dobbhoff tube for nutrition tomorrow. EEG tomorrow if not waking up. We'll give a Dulcolax suppository today for continued constipation. Continue with wound care. Discussed with Dr. Rojas tomorrow regarding plans for wound. Regarding recent cellulitis, the patient may need a seven-day ten-day course of antibiotics. He is currently on day 6. We did change to Zosyn instead of cefepime due to thrombocytopenia. I did call and talk with the patient's and updated her on her status. She is agreeable to Dobbhoff tube tomorrow if the patient is not awake enough to eat on his own. DVT Prophylaxis: SCD's GI Prophylaxis: Protonix Resuscitation Status: Do Not Resuscitate - Physician Narrative Physician: Michelle Whitlock MD Narrative: Date: 05/11/17 Time: 1059 Hospital Course Summary Disclaimer: The visit summary below is not to be considered part of the above Progress Note. Hospital Course: 04/29/16 hospital admission Admit inpatient to the medical floor under the hospitalist service, Dr. Correia attending. It is expected his stay will exceed 2 overnights given his significant dehydration, likelihood of testicular abscess, and general debility. Bailey catheter inserted in ER secondary to acute kidney injury. Testicular sonogram for definitive diagnosis of testicular swelling. Will need urological consult, but will await sono results. Will not proceed with wound culture as there was stool covering the entire wound area. Would defer culture to be taken at time of I&D if this is truly an abscess. First dose of cefepime given an ER. Continue 1 g every 6 hours. Half normal saline started in ER, will continue for rehydration and hypernatremia and acute kidney injury. CT head was performed in the ER for altered mental status. Essentially negative. Patient is on Coumadin for A. fib; however, this will be held given his INR of greater than 10. Vitamin K 10 mg given on admission. Pharmacy to manage Coumadin when it is resumed. Speech consult to determine swallowing status and assist in making dietary recommendations. Patient requests DO NOT RESUSCITATE CODE STATUS Care to return to Dr. Billings upon dismissal. 04/30/17 Testicular sono showing abscess on right side - consult placed with Dr Rojas for evaluation and drainage. Obtain CT to exclude extension of abscess. Continue with cefepime for antimicrobial coverage. Sodium with gradual decrease to 163. Creatinine with decrease to 2.3. Continue 1/2NS at 100 cc/hr for hydration and to normalize sodium. INR with decrease to 7.3 - Vitamin K 5mg x1. Coumadin not restarted due to elevated INR. Daily INRs. Speech to check swallow function. Recheck BMP in am secondary to hypernatremia and NIKKO. Will recheck CBC in am due to scrotal abscess. 05/01/17 Sodium with gradual decrease to 161 with potassium 3.2. Creatinine improved to 1.8. Mentation and oral drive still diminished. Working with Speech-therapeutic NPO recommended. With sodium elevated, patient not ready to work with PT/OT yet. INR decreased to 1.44. Will hold on restarting Coumadin as planning I/D of scrotal abscess on 05/05. Wound team recommending Aquacel AG covered with ABD pad. Continue with cefepime for antimicrobial coverage. Continue 1/2NS, but add 20mEq KCl as potassium decreased. Discussed with about patients status. Hope to see functional improvements once sodium normalized and abscess resolved. Uncertain if swallow function will return. Discussed about Feeding Tube, but too early to make decision about this now. Asked to think about his wishes for feeding tube if swallow function not improving once acute needs resolved. 05/02/17 Sodium unchanged at 161. Potassium increased to 3.4. Creatinine improved to 1.5. Change IVF to D5W with 20KCL at 100cc/hr to help improve sodium. Continue cefepime for coverage of scrotal abscess - not seeing sighs of systemic process due to abscess. I/D planned on 05/05 by urology. Continue Aquacel AG covered with ABD pad as per wound team. Speech working with swallow. Possible PT/OT in near future once mentation improved. Hope to see improvement in mentation as sodium normalizes. 05/03/17 Sodium decreased to 154 with potassium improved to 3.6. Creatinine 1.3 this am. WBC 6.3. Continue D5W with 20KCL at 100cc/hr to help improve sodium. Continue cefepime for coverage of scrotal abscess. I/D planned on 05/05 by urology. Continue Aquacel AG covered with ABD pad as per wound team. Will give Lovenox 40mg SQ x1 for DVT prevention. Speech working with swallow-improvement in oral intake noted. With continued encephalopathy, do not feel patient ready for PT/OT at this time. Will check Vitamin B12 secondary to macrocytosis and encephalopathy. 05/04/17. Sodium continues to trend down at 152. Potassium stable at 3.7. WBC stable at 5.3. Creatinine 1.2. Continue D5W with 20KCL at 100cc/hr to help improve sodium. Will recheck BMP in AM to monitor electrolytes and renal function. Weight trending up. Continue to monitor closely for fluid overload. Continue cefepime for coverage of scrotal abscess. I/D planned on 05/05 by urology. Continue Aquacel AG covered with ABD pad as per wound team. Will hold Lovenox today due to anticipated I&D tomorrow and would recommend considering restarting Lovenox following procedure for DVT prophylaxis. Encourage SCDs. Increased sedation today per family. Medication list reviewed. Morphine decreased to 1mg Q3-4 hours PRN. Monitor closely for improvement in alertness. Speech working with swallow-improvement in oral intake noted. With continued encephalopathy, do not feel patient ready for PT/OT at this time. Will check Vitamin B12 secondary to macrocytosis and encephalopathy - results pending. 05/05/17 Underwent I/D of right scrotal abscess with debridement of necrotic tissue - right testicle removed. Wound team reconsulted secondary to open wound of right scrotum. Sodium decreased to 146. Will continue with D5W with 20 KCL, but decrease rate to 75cc/hr. Continue with speech therapy to help swallow function. Will have PT/OT evaluate tomorrow to work on improving strength. Now that sodium approaching normal, hope mentation will clear. B12 level pending. Potentially can restart Coumadin protocol tomorrow. 05/07 Asked nursing staff to have Speech therapy work with PO intake today Underwent I/D of right scrotal abscess with debridement of necrotic tissue - right testicle removed on 05/05/2017. Wound team to manage scrotal wound and dressing changes Continues to be agitated requiring one to one care. ?morphine related Lovenox contraindicated given thrombocytopenia 05/08 Still markedly encephalopathic; last Morphine on 05/04 at 0117 and last Ativan on 05/07 at [address]. Ad[address] head [address] showed moderate atrophy without acute findings. He's been off anticoagulants since 05/03/17 and w/ history of a-fib he is at higher risk of stroke. CT repeated - no acute findings N/V x2; abdominal xray reviewed - moderate amount of stool with large rectal stool ball. Will ask nursing to attempt disimpaction; could try fleet's enema. Concerned about patient's ability to cooperate with aggressive measures. Continue wound care for recent testicular resection/wound. Continue Cefepime. Thrombocytopenia persists with plt count of 79 Continue PPN. Unable to take in anything PO. 05/09 Still markedly encephalopathic; head CT was repeated yesterday showing moderate to severe atrophy but no acute findings. With minimal improvement in encephalopathy, will consult Dr. Cruz. He may need an MRI and or EEG. We will hold any centrally acting medications including benzodiazepines and narcotics - these had been discontinued, however, Ativan was reordered this morning and he received a 1 mg dose at 0235. RN was able to minimally disimpact fecal stool burden and administer fleets enema yesterday. Platelet count decreased again today to 60,000. There is also been an increase in the lining creatinine up to 49 and 1.5. His urine has been dark faviola to tea- colored, and he has been oliguric. Yesterday he averaged 12 mL per kilo per hour. We'll give 500 cc bolus of normal saline. Continue PPN. Continue cefepime and wound care. 05/11 Plan Patient remains obtunded w/o clear cause. Appreciate consultants help. Delerium? Will schedule low-dose Haldol IV to see if there is any improvement. If none- will need to change back to PRN. Continue scheduled APAP MI for pain control. Continue antibiotics- afebrile. He is pancytopenic- may need peripheral smear if persists. May need to change Zosyn to alternative medications. Hypernatremia has resolved, but he still appears a bit dry. Will add supplemental IVF. Elevated BUN may indicate that we need to decrease the AA/Protein in the TPN. Pharmacy consulted for TPN management. Consider placing Dubhoff and starting TF. Still has significant stool in rectum. Could consider repeating CT of the pelvis with rectal contrast if persists. Monitor BP, as it is trending up. Overall, remains ill. He continues to be deemed high risk given severity of illness and complexity.
[2017-05-11] MEDS: CLOTRIMAZOLE 10 MG TROCHE MM SCH ×5 (11:36→21:57)
[2017-05-11] MEDS: 1/2 NS 1,000 ML IV SCH (12:02)
[2017-05-11] MEDS: PANTOPRAZOLE 40 MG INJECTION IVP SCH (12:08)
[2017-05-11] MEDS: ACETAMINOPHEN 650 MG SUPPOSITORY PR SCH ×4 (12:14→21:44)
[2017-05-11] MEDS: HALOPERIDOL 5 MG/ML INJECTION IVP SCH ×2 (12:22→18:18)
[2017-05-11] MEDS: BISACODYL 10 MG SUPPOSITORY RECTALLY PRN (14:27)
[2017-05-11] MEDS: FAT EMULSION 20% 500 ML IV SCH (15:31)
--- NOTE | 2017-05-11 15:56 | Pharmacy Consult-TPN/PPN ---
Pharmacy Consult-TPN/PPN - Laboratory Information Chemistry Turbidity < 20 (0-20) 05/11/17 04:52 Sodium 139 MEQ/L (134-144) 05/11/17 04:52 Potassium 3.9 MEQ/L (3.6-5) 05/11/17 04:52 Chloride 113 MEQ/L (98-107) H 05/11/17 04:52 Carbon Dioxide 18 MEQ/L (22-30) L 05/11/17 04:52 Anion Gap 8 MEQ/L (5-15) 05/11/17 04:52 BUN 56.0 MG/DL (9-20) H* 05/11/17 04:52 Creatinine 1.5 MG/DL (0.8-1.5) 05/11/17 04:52 GFR Calculation 45 05/11/17 04:52 BUN/Creatinine Ratio 37 RATIO (6-26) H 05/11/17 04:52 Glucose 93 MG/DL (75-110) 05/11/17 04:52 Glucometer 115 mg/dL (65-110) 05/09/17 08:17 Calculated Osmolality 284 MOSM/KG (261-280) H 05/11/17 04:52 Calcium 8.0 MG/DL (8.4-10.2) L 05/11/17 04:52 Phosphorus 2.8 MG/DL (2.5-4.5) 05/07/17 04:11 Magnesium 1.8 MG/DL (1.6-2.3) 05/07/17 04:11 Total Bilirubin 1.50 MG/DL (0.20-1.30) H 05/08/17 15:32 Conjugated Bilirubin 0.00 MG/DL (0.00-0.30) 05/08/17 15:32 Unconjugated Bilirubin 0.90 MG/DL (0.00-1.1) 05/08/17 15:32 Icterus Index < 2 (0-7) 05/11/17 04:52 AST 31 U/L (17-59) 05/08/17 15:32 ALT 43 U/L (21-72) 05/08/17 15:32 Alkaline Phosphatase 87 U/L (38-126) 05/08/17 15:32 Ammonia < 9 UMOL/L (9-33) L 05/08/17 15:32 Troponin I 0.077 ng/ml (0-0.12) 04/29/17 14:17 Total Protein 6.5 G/DL (6.3-8.2) 05/08/17 15:32 Albumin 3.2 G/DL (3.5-5.0) L 05/08/17 15:32 Globulin 3.3 G/DL (2.4-3.6) 05/08/17 15:32 Albumin/Globulin Ratio 1.0 RATIO (1.1-2.2) L 05/08/17 15:32 Prealbumin 16.8 MG/DL (17.6-36.0) L 05/07/17 04:11 Plasma Lactate 2.1 MMOL/L (0.6-2.2) 04/29/17 18:10 Vitamin B12 813 PG/ML (239-931) 05/04/17 04:12 Specimen Hemolysis < 15 (0-25) 05/11/17 04:52 Intake and Output 05/10/17 05/11/17 05/12/17 06:59 06:59 06:59 Intake Total 2533.75 / 2533.75 3245.250 / 3245.250 100 / 100 Output Total 1999 / 1999 2325 / 2325 Balance 533.75 / 533.75 920.250 / 920.250 100 / 100 Weight 68 kg 69 kg 70.2 kg Intake: IV 2533.75 / 2533.75 3245.250 / 3245.250 100 / 100 Cefepime 1 gm In Ns 100 ml @ 200 / 200 200 mls/hr IV Q8H [facility] Rx#: [id number] Fat Emulsion 20% 500 ml @ 50 500 / 500 500.000 / 500.000 mls/hr IV 1600 [facility] Rx#: [id number] Multi-Vit Infusion 10 ml Multi 222.5 / 222.5 -Trace Elements 1 ml In Ppn - Standard Formula 2,000 ml @ 75 mls/hr IV .Q24H [facility] Rx#: [id number] Multi-Vit Infusion 10 ml Multi 1133.75 / 1133.75 1122.75 / 1122.75 -Trace Elements 1 ml Potassium Chloride Inj 20 meq In Ppn - Standard Formula 2,000 ml @ 75 mls/hr IV .Q24H [facility] Rx#: [id number] NS 500ml 500 ml @ 250 mls/hr IV 500 / 500 1000 / 1000 .Q2H [facility] Rx#:[id number] Piperacillin/Tazobactam 3.375 200 / 200 400 / 400 100 / 100 gm In Ns 100 ml @ 200 mls/hr IV Q6H [facility] Rx#:[id number] Output: Urine Amount (Catheter) 1999 2325 / 2325 Other: Urine Appearance Clear Clear Urine Color Light Hemalatha Light Hemalatha Urine Odor Strong Stool Characteristics Tarry Stool Color Brown Brown Stool Consistency Soft Soft Size of Bowel Movement Smear Small - Consult Information PPN consult: day 5 Chloride elevated at 113. BUN=56 and SCr=1.5 remain elevated. 1/2 NS @ 60 ml/hr added by hospitalist team due to concerns of dehydration. PPN formula changed to custom formula so that the chloride could be removed. Spoke with Dr. Whitlock regarding amino acid content in PPN and renal concerns. We discussed continuing current concentration of Amino Acids at the same rate to run with additional 1/2 NS @ 60 ml/hr. New PPN formula as follows: AA 8.5% 1000 ml Dextrose 10 % 1000 ml Na acetate 70 Meq K phos 40 Meq K acetate 40 Meq MgSo4 12 Meq Ca gluc 9.3 Meq MVI 10 ml Trace elements 1 ml rate=75 ml/hr Thank you, Natalee Peck [facility]
[2017-05-11] MEDS ORDERED: POTASSIUM PHOSPHATE IV SCH (16:00)
[2017-05-11] MEDS ORDERED: POTASSIUM ACETATE IV SCH (16:00)
[2017-05-11] MEDS ORDERED: SODIUM ACETATE IV SCH (16:00)
[2017-05-11] MEDS ORDERED: [UNRECOGNIZED DRUG - OTHER] IV SCH (16:00)
[2017-05-11] MEDS: LIDOCAINE 5% PATCH TOP SCH (18:11)
[2017-05-11] MEDS: LIDOCAINE PATCH REMOVAL TOP SCH (22:36)
[2017-05-12] MEDS: HALOPERIDOL 5 MG/ML INJECTION IVP SCH ×4 (01:22→19:29)
[2017-05-12] MEDS: PIPERACILLIN/TAZOBACTAM 3.375 GM in NS 100 ML IV SCH ×4 (01:24→19:32)
[2017-05-12] MEDS: ACETAMINOPHEN 500 MG TABLET PO SCH ×6 (01:34→19:34)
[2017-05-12] MEDS ORDERED: LORazepam 0.5 MG TABLET PO SCH (02:30)
--- NOTE | 2017-05-12 07:52 | Pharmacy Consult-TPN/PPN ---
Pharmacy Consult-TPN/PPN - Laboratory Information Chemistry Turbidity < 20 (0-20) 05/12/17 05:37 Sodium 138 MEQ/L (134-144) 05/12/17 05:37 Potassium 3.8 MEQ/L (3.6-5) 05/12/17 05:37 Chloride 109 MEQ/L (98-107) H 05/12/17 05:37 Carbon Dioxide 18 MEQ/L (22-30) L 05/12/17 05:37 Anion Gap 11 MEQ/L (5-15) 05/12/17 05:37 BUN 48.0 MG/DL (9-20) H 05/12/17 05:37 Creatinine 1.5 MG/DL (0.8-1.5) 05/12/17 05:37 GFR Calculation 45 05/12/17 05:37 BUN/Creatinine Ratio 32 RATIO (6-26) H 05/12/17 05:37 Glucose 111 MG/DL (75-110) H 05/12/17 05:37 Glucometer 115 mg/dL (65-110) 05/09/17 08:17 Calculated Osmolality 280 MOSM/KG (261-280) 05/12/17 05:37 Calcium 8.1 MG/DL (8.4-10.2) L 05/12/17 05:37 Phosphorus 2.8 MG/DL (2.5-4.5) 05/07/17 04:11 Magnesium 2.1 MG/DL (1.6-2.3) 05/12/17 05:37 Total Bilirubin 1.20 MG/DL (0.20-1.30) 05/12/17 05:37 Conjugated Bilirubin 0.00 MG/DL (0.00-0.30) 05/08/17 15:32 Unconjugated Bilirubin 0.90 MG/DL (0.00-1.1) 05/08/17 15:32 Icterus Index < 2 (0-7) 05/12/17 05:37 AST 32 U/L (17-59) 05/12/17 05:37 ALT 36 U/L (21-72) 05/12/17 05:37 Alkaline Phosphatase 75 U/L (38-126) 05/12/17 05:37 Ammonia < 9 UMOL/L (9-33) L 05/08/17 15:32 Troponin I 0.077 ng/ml (0-0.12) 04/29/17 14:17 Total Protein 5.8 G/DL (6.3-8.2) L 05/12/17 05:37 Albumin 2.8 G/DL (3.5-5.0) L 05/12/17 05:37 Globulin 3.0 G/DL (2.4-3.6) 05/12/17 05:37 Albumin/Globulin Ratio 0.9 RATIO (1.1-2.2) L 05/12/17 05:37 Prealbumin 16.8 MG/DL (17.6-36.0) L 05/07/17 04:11 Plasma Lactate 2.1 MMOL/L (0.6-2.2) 04/29/17 18:10 Vitamin B12 813 PG/ML (239-931) 05/04/17 04:12 Specimen Hemolysis < 15 (0-25) 05/12/17 05:37 Intake and Output 05/11/17 05/12/17 05/13/17 06:59 06:59 06:59 Intake Total 3245.250 / 3245.250 2661.75 / 2661.75 Output Total 2325 / 2325 2100 / 2100 Balance 920.250 / 920.250 561.75 / 561.75 Weight 69 kg 70.2 kg 69.5 kg Intake: IV 3245.250 / 3245.250 2661.75 / 2661.75 1/2 Ns 1,000 ml @ 60 mls/hr IV 208 / 208 .[id number] [facility] Rx#:[id number] Fat Emulsion 20% 500 ml @ 50 500.000 / 500.000 500 / 500 mls/hr IV 1600 [facility] Rx#: [id number] Multi-Vit Infusion 10 ml Multi 222.5 / 222.5 1553.75 / 1553.75 -Trace Elements 1 ml In Ppn - Standard Formula 2,000 ml @ 75 mls/hr IV .Q24H [facility] Rx#: [id number] Multi-Vit Infusion 10 ml Multi 1122.75 / 1122.75 -Trace Elements 1 ml Potassium Chloride Inj 20 meq In Ppn - Standard Formula 2,000 ml @ 75 mls/hr IV .Q24H [facility] Rx#: [id number] NS 500ml 500 ml @ 250 mls/hr IV 1000 / 1000 .Q2H [facility] Rx#:[id number] Piperacillin/Tazobactam 3.375 400 / 400 400 / 400 gm In Ns 100 ml @ 200 mls/hr IV Q6H [facility] Rx#:[id number] Output: Urine Amount (Catheter) 2325 / 2325 2099 / 2099 Other: Urine Appearance Clear Clear Urine Color Light Hemalatha Tea Colored Urine Odor Strong Normal Stool Characteristics Tarry Stool Color Brown Stool Consistency Soft Size of Bowel Movement Moderate # Incontinent Bowel Movements 1 - Consult Information Chloride a little better with new formulation PPN which has only run for about 12 hours since last labs. Rest of lytes wnl. Will continue custom PPN at 75 mls/ hr. Thank you.
--- NOTE | 2017-05-12 09:12 | Progress Note ---
- Date 05/12/17 Subjective: "Silvia" was in bed, sleeping with eyes closed. He did not open eyes or respond to verbal or tactile stimulation. He requires full care and nursing staff has been turning him Q2h and providing wound care. RT consulted and has been suctioning white sputum from his mouth earlier today. Bailey to DD with tea- colored urine. Objective Vital signs: Temperature 96.7 F L 05/12/17 07:43 Pulse Rate 56 L 05/12/17 07:43 Respiratory Rate 20 05/12/17 07:43 Blood Pressure 149/67 H 05/12/17 07:43 Pulse Oximetry 97 05/12/17 07:43 Height/Weight/BMI: Height 1.83 m Weight 69.5 kg Body Mass Index 19.8 - Constitutional Present: thin - Routine HEENT Exam ENT: Present: mucous membranes dry Comments: does not open eyes - Routine Respiratory Exam Present: decreased breath sounds - Routine Cardiovascular Exam Present: RRR, S1, S2 - Routine Abdominal Exam Present: soft, normoactive bowel sounds, non distended, non tender - Routine Extremities Exam Present: no edema, pulses intact - Routine Skin Exam Present: dry, warm, ecchymosis (both arms) - Routine Neurological Exam Absent: alert, oriented X3 - Routine Psychiatric Exam Present: unable to assess Results - Labs CBC & Chem 7: 05/16/17 03:56 05/16/17 03:56 Assessment and Plan (1) Dehydration Status: Acute (2) Open wound of scrotum Status: Acute (3) Scrotal abscess Status: Acute (4) Hypernatremia Status: Acute Assessment and Plan: Assessment Scrotal abscess (right) - Testicular pain and swelling secondary Necrotic right testicle, extensive necrosis involving the subcutaneous tissue -I &D with right testicular resection by Dr. 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 Anemia, acute. 05/12 Plan No appreciable improvement with recent addition of scheduled Haldol. Will order EEG. Will need to discuss Dobbhoff placement with family (rather than PPN). Dr. Whitlock discussed this with Mrs. Barron yesterday and she was agreeable to Dobbhoff placement. BUN decreasing with addition of fluids (1/2 NS) yesterday - will continue for now. Urine is tea colored but he's had adequate urine output. Continue Zosyn for scrotal abscess. Platelet count is rebounding slightly (up to 62) since stopping Cefepime; could consider peripheral smear. Today is day # 7 of abx. Successfully reached Dr. Rojas (he is on vacation). He simply wants to have wound RN continue to see him and address the wound (Amber RN recommends packing the wound daily). He will be back in [place] on Friday. Discussed with FRANKO Clark -- will continue daily packing. Addendum by Dr. Sands: Seen and examined patient on same day as the above note. Agree with subjective note, physical exam, assessment and plan. Comprehensive physical findings correlate to the above note. Documented on [place] speech to text. Efforts to correct speech recognition errors performed, but variation may exist DVT Prophylaxis: SCD's GI Prophylaxis: Protonix Resuscitation Status: Do Not Resuscitate - Physician Narrative Narrative: Date: 05/12/17 Time: 0908 Hospital Course Summary Disclaimer: The visit summary below is not to be considered part of the above Progress Note. Hospital Course: 04/29/16 hospital admission Admit inpatient to the medical floor under the hospitalist service, Dr. Correia attending. It is expected his stay will exceed 2 overnights given his significant dehydration, likelihood of testicular abscess, and general debility. Bailey catheter inserted in ER secondary to acute kidney injury. Testicular sonogram for definitive diagnosis of testicular swelling. Will need urological consult, but will await sono results. Will not proceed with wound culture as there was stool covering the entire wound area. Would defer culture to be taken at time of I&D if this is truly an abscess. First dose of cefepime given an ER. Continue 1 g every 6 hours. Half normal saline started in ER, will continue for rehydration and hypernatremia and acute kidney injury. CT head was performed in the ER for altered mental status. Essentially negative. Patient is on Coumadin for A. fib; however, this will be held given his INR of greater than 10. Vitamin K 10 mg given on admission. Pharmacy to manage Coumadin when it is resumed. Speech consult to determine swallowing status and assist in making dietary recommendations. Patient requests DO NOT RESUSCITATE CODE STATUS Care to return to Dr. Billings upon dismissal. 04/30/17 Testicular sono showing abscess on right side - consult placed with Dr Rojas for evaluation and drainage. Obtain CT to exclude extension of abscess. Continue with cefepime for antimicrobial coverage. Sodium with gradual decrease to 163. Creatinine with decrease to 2.3. Continue 1/2NS at 100 cc/hr for hydration and to normalize sodium. INR with decrease to 7.3 - Vitamin K 5mg x1. Coumadin not restarted due to elevated INR. Daily INRs. Speech to check swallow function. Recheck BMP in am secondary to hypernatremia and NIKKO. Will recheck CBC in am due to scrotal abscess. 05/01/17 Sodium with gradual decrease to 161 with potassium 3.2. Creatinine improved to 1.8. Mentation and oral drive still diminished. Working with Speech-therapeutic NPO recommended. With sodium elevated, patient not ready to work with PT/OT yet. INR decreased to 1.44. Will hold on restarting Coumadin as planning I/D of scrotal abscess on 05/05. Wound team recommending Aquacel AG covered with ABD pad. Continue with cefepime for antimicrobial coverage. Continue 1/2NS, but add 20mEq KCl as potassium decreased. Discussed with about patients status. Hope to see functional improvements once sodium normalized and abscess resolved. Uncertain if swallow function will return. Discussed about Feeding Tube, but too early to make decision about this now. Asked to think about his wishes for feeding tube if swallow function not improving once acute needs resolved. 05/02/17 Sodium unchanged at 161. Potassium increased to 3.4. Creatinine improved to 1.5. Change IVF to D5W with 20KCL at 100cc/hr to help improve sodium. Continue cefepime for coverage of scrotal abscess - not seeing sighs of systemic process due to abscess. I/D planned on 05/05 by urology. Continue Aquacel AG covered with ABD pad as per wound team. Speech working with swallow. Possible PT/OT in near future once mentation improved. Hope to see improvement in mentation as sodium normalizes. 05/03/17 Sodium decreased to 154 with potassium improved to 3.6. Creatinine 1.3 this am. WBC 6.3. Continue D5W with 20KCL at 100cc/hr to help improve sodium. Continue cefepime for coverage of scrotal abscess. I/D planned on 05/05 by urology. Continue Aquacel AG covered with ABD pad as per wound team. Will give Lovenox 40mg SQ x1 for DVT prevention. Speech working with swallow-improvement in oral intake noted. With continued encephalopathy, do not feel patient ready for PT/OT at this time. Will check Vitamin B12 secondary to macrocytosis and encephalopathy. 05/04/17. Sodium continues to trend down at 152. Potassium stable at 3.7. WBC stable at 5.3. Creatinine 1.2. Continue D5W with 20KCL at 100cc/hr to help improve sodium. Will recheck BMP in AM to monitor electrolytes and renal function. Weight trending up. Continue to monitor closely for fluid overload. Continue cefepime for coverage of scrotal abscess. I/D planned on 05/05 by urology. Continue Aquacel AG covered with ABD pad as per wound team. Will hold Lovenox today due to anticipated I&D tomorrow and would recommend considering restarting Lovenox following procedure for DVT prophylaxis. Encourage SCDs. Increased sedation today per family. Medication list reviewed. Morphine decreased to 1mg Q3-4 hours PRN. Monitor closely for improvement in alertness. Speech working with swallow-improvement in oral intake noted. With continued encephalopathy, do not feel patient ready for PT/OT at this time. Will check Vitamin B12 secondary to macrocytosis and encephalopathy - results pending. 05/05/17 Underwent I/D of right scrotal abscess with debridement of necrotic tissue - right testicle removed. Wound team reconsulted secondary to open wound of right scrotum. Sodium decreased to 146. Will continue with D5W with 20 KCL, but decrease rate to 75cc/hr. Continue with speech therapy to help swallow function. Will have PT/OT evaluate tomorrow to work on improving strength. Now that sodium approaching normal, hope mentation will clear. B12 level pending. Potentially can restart Coumadin protocol tomorrow. 05/07 Asked nursing staff to have Speech therapy work with PO intake today Underwent I/D of right scrotal abscess with debridement of necrotic tissue - right testicle removed on 05/05/2017. Wound team to manage scrotal wound and dressing changes Continues to be agitated requiring one to one care. ?morphine related Lovenox contraindicated given thrombocytopenia 05/08 Still markedly encephalopathic; last Morphine on 05/04 at 0117 and last Ativan on 05/07 at [address]. Ad[address] head [address] showed moderate atrophy without acute findings. He's been off anticoagulants since 05/03/17 and w/ history of a-fib he is at higher risk of stroke. CT repeated - no acute findings N/V x2; abdominal xray reviewed - moderate amount of stool with large rectal stool ball. Will ask nursing to attempt disimpaction; could try fleet's enema. Concerned about patient's ability to cooperate with aggressive measures. Continue wound care for recent testicular resection/wound. Continue Cefepime. Thrombocytopenia persists with plt count of 79 Continue PPN. Unable to take in anything PO. 05/09 Still markedly encephalopathic; head CT was repeated yesterday showing moderate to severe atrophy but no acute findings. With minimal improvement in encephalopathy, will consult Dr. Cruz. He may need an MRI and or EEG. We will hold any centrally acting medications including benzodiazepines and narcotics - these had been discontinued, however, Ativan was reordered this morning and he received a 1 mg dose at 0235. RN was able to minimally disimpact fecal stool burden and administer fleets enema yesterday. Platelet count decreased again today to 60,000. There is also been an increase in the lining creatinine up to 49 and 1.5. His urine has been dark faviola to tea- colored, and he has been oliguric. Yesterday he averaged 12 mL per kilo per hour. We'll give 500 cc bolus of normal saline. Continue PPN. Continue cefepime and wound care. 05/11 Plan Patient remains obtunded w/o clear cause. Appreciate consultants help. Delerium? Will schedule low-dose Haldol IV to see if there is any improvement. If none- will need to change back to PRN. Continue scheduled APAP ME for pain control. Continue antibiotics- afebrile. He is pancytopenic- may need peripheral smear if persists. May need to change Zosyn to alternative medications. Hypernatremia has resolved, but he still appears a bit dry. Will add supplemental IVF. Elevated BUN may indicate that we need to decrease the AA/Protein in the TPN. Pharmacy consulted for TPN management. Consider placing Dubhoff and starting TF. Still has significant stool in rectum. Could consider repeating CT of the pelvis with rectal contrast if persists. Monitor BP, as it is trending up. Overall, remains ill. He continues to be deemed high risk given severity of illness and complexity. 05/12/17 No appreciable improvement with recent addition of scheduled Haldol. Will order EEG. Will need to discuss Dobbhoff placement with family (rather than PPN). Dr. Whitlock discussed this with Mrs. Barron yesterday and she was agreeable to Dobbhoff placement. BUN decreasing with addition of fluids (1/2 NS) yesterday - will continue for now. Urine is tea colored but he's had adequate urine output. Continue Zosyn for scrotal abscess. Platelet count is rebounding slightly (up to 62) since stopping Cefepime; could consider peripheral smear. Today is day # 7 of abx. Successfully reached Dr. Rojas (he is on vacation). He simply wants to have wound RN continue to see him and address the wound (Amber RN recommends packing the wound daily). He will be back in [place] on Friday. Addendum entered and electronically signed by Eri Maciel APRN 05/12/17 12: 47: Pt had 1 mg of Ativan at 0304 this morning. This has been discontinued previously. Will stop lorazepam and add it to allergy list. Also discussed Dobbhoff placement with daughter, Jen (DPOA) and Mrs. Barron - they are in agreement with Samantha. Will consult dietary to help with nutritional status. We discussed the possibility that he won't improve; they have considered this as well but want to give the Ativan time to wear off. We also discussed feeding tube placement, and they will think about whether or not this is something to pursue. They are in agreement with obtaining EEG.
[2017-05-12] MEDS: CLOTRIMAZOLE 10 MG TROCHE MM SCH ×3 (09:30→19:30)
[2017-05-12] MEDS: BISACODYL 10 MG SUPPOSITORY RECTALLY PRN (09:44)
[2017-05-12] MEDS: LIDOCAINE 5% PATCH TOP SCH (09:44)
[2017-05-12] MEDS: ACETAMINOPHEN 650 MG SUPPOSITORY PR SCH ×3 (09:45→19:39)
[2017-05-12] MEDS: PANTOPRAZOLE 40 MG INJECTION IVP SCH (09:45)
[2017-05-12] MEDS: 1/2 NS 1,000 ML IV SCH (10:41)
--- NOTE | 2017-05-12 14:17 | Wound Care Progress Note ---
Wound Center Progress Note: Stopped by to check on pt and staff nurse stated she had already changed pt's drsg. Also spoke to Rhonda Maciel APRN this am who had been in touch with Physician who made wound. He will be in to see pt in the next few days. Until then will continue current treatment.
--- NOTE | 2017-05-12 15:43 | XRay Report ---
Indication: CHECK DOBHOFF PLACEMENT XR abdomen 1V: Comparison: None Technique: Film of the chest and abdomen Findings: Patient shows the metallic tip of the Dobbhoff along the greater curvature the stomach. Lead to be advanced about 24 cm to reach the midportion of the duodenal C-loop. The bowel gas pattern is nonspecific. Heart size is the upper range of normal. Impression: The metallic tip the Dobbhoff is in the greater curvature and would need to be pushed in probably in the vicinity of 24 cm to reach the distal duodenal C-loop. .
[2017-05-13] MEDS ORDERED: HALOPERIDOL 5 MG/ML INJECTION IVP PRN ×2 (01:08→11:35)
[2017-05-13] MEDS: ACETAMINOPHEN 500 MG TABLET PO SCH ×7 (01:18→23:06)
[2017-05-13] MEDS: PIPERACILLIN/TAZOBACTAM 3.375 GM in NS 100 ML IV SCH ×2 (01:20→06:57)
[2017-05-13] MEDS: HALOPERIDOL 5 MG/ML INJECTION IVP SCH ×4 (01:28→23:07)
[2017-05-13] MEDS: CLOTRIMAZOLE 10 MG TROCHE MM SCH ×6 (02:46→21:22)
[2017-05-13] MEDS: LIDOCAINE PATCH REMOVAL TOP SCH ×2 (02:47→21:34)
[2017-05-13] MEDS: ACETAMINOPHEN 650 MG SUPPOSITORY PR SCH ×5 (02:48→21:22)
[2017-05-13] MEDS: 1/2 NS 1,000 ML IV SCH ×3 (05:00→23:11)
--- NOTE | 2017-05-13 09:08 | XRay Report ---
Indication: Dobbhoff tube placement eval PROCEDURE: XR KUB: Encounter: Initial Comparison: 05/10/2017 Findings: There is a Dobbhoff tube in place with its tip at the region of the pylorus with sufficient length in the stomach. The included portions of the lung bases are clear. Heart size normal. No pleural effusion. There is scattered gas and stool in the abdomen without evidence of obstruction or free air. No soft tissue mass or organomegaly. No abnormal calcification. No definite bony destructive process. IMPRESSION: No evidence for obstruction or perforation. Dobbhoff tube in place with tip at the pylorus. .
[2017-05-13] MEDS: LIDOCAINE 5% PATCH TOP SCH (11:08)
[2017-05-13] MEDS: PANTOPRAZOLE 40 MG INJECTION IVP SCH (11:09)
--- NOTE | 2017-05-13 14:30 | Progress Note ---
- Date 05/13/17 Subjective: Silvia is seen today in follow up for his scrotal abscess and recent electrolyte abnormalities. He is seen while resting, having just completed the EEG - results unknown. He is alert and speaks frequently, though it is difficult to understand and seems disconnected. He denies any complaints. No chest pain, shortness of breath, abdominal pain, nausea or vomiting. Nursing reports that he pulled out the Dobbhoff at least 2 times during the night and ultimately it has remained out. He has had very little oral intake as he was sedated after receiving haldol. Recent labs revealed pancytopenia with WBC decreased to 4.3, stable anemia at 8.7 and slight improvement in platelets at 67. BMP revealed new hypokalemia with potassium at 3.5 and slight increase in his SCr at 1.6. Patient's daughter and DPOA, Kala, arrived at the conclusion of the exam and expressed significant frustration that the patient had received Ativan yesterday. She was adamant that she should be called prior to him receiving ativan or any other new medications as she is his DPOA. Her concerns and requests were passed along to the charge nurse. Extensive review of the patient's chart including prior records were reviewed and discussed with Dr. Sands. Objective Vital signs: Temperature 96.9 F 05/13/17 12:00 Pulse Rate 91 05/13/17 12:00 Respiratory Rate 18 05/13/17 12:00 Blood Pressure 179/86 H 05/13/17 12:00 Pulse Oximetry 100 05/13/17 12:00 Rhythm: Normal Sinus Rhythm Height/Weight/BMI: Height 6 ft Weight 158 lb 4.67 oz Body Mass Index 19.8 Comments: resting in bed, alert and having just completed EEG. - Constitutional Present: no acute distress, well nourished, well developed, cooperative - Routine HEENT Exam Head: Present: normocephalic, atraumatic Eye: Present: PERRL. Absent: conjunctival icterus ENT: Present: mucous membranes moist - Routine Respiratory Exam Absent: wheezes Comments: diminished breath sounds bilaterally without cough or respiratory distress. - Routine Cardiovascular Exam Present: RRR, S1, S2 - Routine Abdominal Exam Present: soft, normoactive bowel sounds, non distended, non tender - Routine Extremities Exam Present: edema, non tender - Routine Back/Spine/Pelvis Exam Back/Spine: Absent: vertebral tenderness - Routine Skin Exam Present: dry, warm. Absent: jaundice Comments: ecchymosis noted to both arms. - Routine Neurological Exam Present: alert, facial asymmetry speech is difficult to understand and seems disconnected at time. - Routine Lymphatic Exam Lymphatic: Absent: lymphedema - Routine Psychiatric Exam Present: cooperative Results - Labs CBC & Chem 7: 05/16/17 03:56 05/16/17 03:56 Assessment and Plan (1) Dehydration Status: Acute (2) Open wound of scrotum Status: Acute (3) Scrotal abscess Status: Acute (4) Hypernatremia Status: Acute Assessment and Plan: Assessment Scrotal abscess (right) - Testicular pain and swelling secondary Necrotic right testicle, extensive necrosis involving the subcutaneous tissue -I &D with right testicular resection by Dr. 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 Anemia, acute. Plan - 05/13/17 Patient just completed EEG with results pending. Nursing reports that the patient has been awake and confused with some restlessness this morning. Haldol was changed to Q6H PRN as opposed to scheduled to minimize sedation effect from Haldol. Continue to monitor closely and provide safe and supportive environment. Patient's daughter, Kala, whom is the DPOA requests that prior to any new medication or Ativan, that she be contracted. Patient is not to received Ativan without discussing with her first (her number is on the board in the patient's room). Dobbhof was placed on 05/12 and the patient subsequently removed it on more than one occasion throughout the night. PPN was discontinued on 05/12/17. Will have speech continue to work with patient. May need to consider PEG placement. Will discuss with Dr. Sands and family. Labs today revealed new pancytopenia with WBC decreased to 4.3, Hgb stable at 8.7 and Plt slightly improved to 67. Will continue to monitor closely. New hypokalemia noted with potassium at 3.5. Will give KCl 20 mEq po and continue to monitor closely on telemetry. Sodium stable at 138. Slight increase in SCr to 1.6 and weight noted to be trending up. Will decrease 1/2NS to 50cc/hr and continue to monitor renal function closely. Monitor urinary output closely. Continue Zosyn for scrotal abscess. Platelet count is rebounding slightly (up to 67) since stopping Cefepime; could consider peripheral smear. Today is day # [address] Rojas requests to have wound RN continue to see him and address the wound (Amber RN recommends packing the wound daily). He will be back in [place] on Friday. Will continue daily packings. Addendum by Dr. Sands: Seen and examined patient on same day as the above note. Agree with subjective note, physical exam, assessment and plan. Comprehensive physical findings correlate to the above note. Documented on Dragon speech to text. Efforts to correct speech recognition errors performed, but variation may exist DVT Prophylaxis: SCD's GI Prophylaxis: Protonix Resuscitation Status: Do Not Resuscitate - Time spent with patient Time with patient PN: 35 minutes - Physician Narrative Physician: other (Dr. Sands) Narrative: Date: 05/13/17 Time: 1421 Hospital Course Summary Disclaimer: The visit summary below is not to be considered part of the above Progress Note. Hospital Course: 04/29/16 hospital admission Admit inpatient to the medical floor under the hospitalist service, Dr. Correia attending. It is expected his stay will exceed 2 overnights given his significant dehydration, likelihood of testicular abscess, and general debility. Bailey catheter inserted in ER secondary to acute kidney injury. Testicular sonogram for definitive diagnosis of testicular swelling. Will need urological consult, but will await sono results. Will not proceed with wound culture as there was stool covering the entire wound area. Would defer culture to be taken at time of I&D if this is truly an abscess. First dose of cefepime given an ER. Continue 1 g every 6 hours. Half normal saline started in ER, will continue for rehydration and hypernatremia and acute kidney injury. CT head was performed in the ER for altered mental status. Essentially negative. Patient is on Coumadin for A. fib; however, this will be held given his INR of greater than 10. Vitamin K 10 mg given on admission. Pharmacy to manage Coumadin when it is resumed. Speech consult to determine swallowing status and assist in making dietary recommendations. Patient requests DO NOT RESUSCITATE CODE STATUS Care to return to Dr. Billings upon dismissal. 04/30/17 Testicular sono showing abscess on right side - consult placed with Dr Rojas for evaluation and drainage. Obtain CT to exclude extension of abscess. Continue with cefepime for antimicrobial coverage. Sodium with gradual decrease to 163. Creatinine with decrease to 2.3. Continue 1/2NS at 100 cc/hr for hydration and to normalize sodium. INR with decrease to 7.3 - Vitamin K 5mg x1. Coumadin not restarted due to elevated INR. Daily INRs. Speech to check swallow function. Recheck BMP in am secondary to hypernatremia and NIKKO. Will recheck CBC in am due to scrotal abscess. 05/01/17 Sodium with gradual decrease to 161 with potassium 3.2. Creatinine improved to 1.8. Mentation and oral drive still diminished. Working with Speech-therapeutic NPO recommended. With sodium elevated, patient not ready to work with PT/OT yet. INR decreased to 1.44. Will hold on restarting Coumadin as planning I/D of scrotal abscess on 05/05. Wound team recommending Aquacel AG covered with ABD pad. Continue with cefepime for antimicrobial coverage. Continue 1/2NS, but add 20mEq KCl as potassium decreased. Discussed with about patients status. Hope to see functional improvements once sodium normalized and abscess resolved. Uncertain if swallow function will return. Discussed about Feeding Tube, but too early to make decision about this now. Asked to think about his wishes for feeding tube if swallow function not improving once acute needs resolved. 05/02/17 Sodium unchanged at 161. Potassium increased to 3.4. Creatinine improved to 1.5. Change IVF to D5W with 20KCL at 100cc/hr to help improve sodium. Continue cefepime for coverage of scrotal abscess - not seeing sighs of systemic process due to abscess. I/D planned on 05/05 by urology. Continue Aquacel AG covered with ABD pad as per wound team. Speech working with swallow. Possible PT/OT in near future once mentation improved. Hope to see improvement in mentation as sodium normalizes. 05/03/17 Sodium decreased to 154 with potassium improved to 3.6. Creatinine 1.3 this am. WBC 6.3. Continue D5W with 20KCL at 100cc/hr to help improve sodium. Continue cefepime for coverage of scrotal abscess. I/D planned on 05/05 by urology. Continue Aquacel AG covered with ABD pad as per wound team. Will give Lovenox 40mg SQ x1 for DVT prevention. Speech working with swallow-improvement in oral intake noted. With continued encephalopathy, do not feel patient ready for PT/OT at this time. Will check Vitamin B12 secondary to macrocytosis and encephalopathy. 05/04/17. Sodium continues to trend down at 152. Potassium stable at 3.7. WBC stable at 5.3. Creatinine 1.2. Continue D5W with 20KCL at 100cc/hr to help improve sodium. Will recheck BMP in AM to monitor electrolytes and renal function. Weight trending up. Continue to monitor closely for fluid overload. Continue cefepime for coverage of scrotal abscess. I/D planned on 05/05 by urology. Continue Aquacel AG covered with ABD pad as per wound team. Will hold Lovenox today due to anticipated I&D tomorrow and would recommend considering restarting Lovenox following procedure for DVT prophylaxis. Encourage SCDs. Increased sedation today per family. Medication list reviewed. Morphine decreased to 1mg Q3-4 hours PRN. Monitor closely for improvement in alertness. Speech working with swallow-improvement in oral intake noted. With continued encephalopathy, do not feel patient ready for PT/OT at this time. Will check Vitamin B12 secondary to macrocytosis and encephalopathy - results pending. 05/05/17 Underwent I/D of right scrotal abscess with debridement of necrotic tissue - right testicle removed. Wound team reconsulted secondary to open wound of right scrotum. Sodium decreased to 146. Will continue with D5W with 20 KCL, but decrease rate to 75cc/hr. Continue with speech therapy to help swallow function. Will have PT/OT evaluate tomorrow to work on improving strength. Now that sodium approaching normal, hope mentation will clear. B12 level pending. Potentially can restart Coumadin protocol tomorrow. 05/07 Asked nursing staff to have Speech therapy work with PO intake today Underwent I/D of right scrotal abscess with debridement of necrotic tissue - right testicle removed on 05/05/2017. Wound team to manage scrotal wound and dressing changes Continues to be agitated requiring one to one care. ?morphine related Lovenox contraindicated given thrombocytopenia 05/08 Still markedly encephalopathic; last Morphine on 05/04 at 0117 and last Ativan on 05/07 at [address]. Ad[address] head [address] showed moderate atrophy without acute findings. He's been off anticoagulants since 05/03/17 and w/ history of a-fib he is at higher risk of stroke. CT repeated - no acute findings N/V x2; abdominal xray reviewed - moderate amount of stool with large rectal stool ball. Will ask nursing to attempt disimpaction; could try fleet's enema. Concerned about patient's ability to cooperate with aggressive measures. Continue wound care for recent testicular resection/wound. Continue Cefepime. Thrombocytopenia persists with plt count of 79 Continue PPN. Unable to take in anything PO. 05/09 Still markedly encephalopathic; head CT was repeated yesterday showing moderate to severe atrophy but no acute findings. With minimal improvement in encephalopathy, will consult Dr. Cruz. He may need an MRI and or EEG. We will hold any centrally acting medications including benzodiazepines and narcotics - these had been discontinued, however, Ativan was reordered this morning and he received a 1 mg dose at 0235. RN was able to minimally disimpact fecal stool burden and administer fleets enema yesterday. Platelet count decreased again today to 60,000. There is also been an increase in the lining creatinine up to 49 and 1.5. His urine has been dark faviola to tea- colored, and he has been oliguric. Yesterday he averaged 12 mL per kilo per hour. We'll give 500 cc bolus of normal saline. Continue PPN. Continue cefepime and wound care. 05/11 Plan Patient remains obtunded w/o clear cause. Appreciate consultants help. Delerium? Will schedule low-dose Haldol IV to see if there is any improvement. If none- will need to change back to PRN. Continue scheduled APAP MI for pain control. Continue antibiotics- afebrile. He is pancytopenic- may need peripheral smear if persists. May need to change Zosyn to alternative medications. Hypernatremia has resolved, but he still appears a bit dry. Will add supplemental IVF. Elevated BUN may indicate that we need to decrease the AA/Protein in the TPN. Pharmacy consulted for TPN management. Consider placing Dubhoff and starting TF. Still has significant stool in rectum. Could consider repeating CT of the pelvis with rectal contrast if persists. Monitor BP, as it is trending up. Overall, remains ill. He continues to be deemed high risk given severity of illness and complexity. 05/12/17 No appreciable improvement with recent addition of scheduled Haldol. Will order EEG. Will need to discuss Dobbhoff placement with family (rather than PPN). Dr. Whitlock discussed this with Mrs. Barron yesterday and she was agreeable to Dobbhoff placement. BUN decreasing with addition of fluids (1/2 NS) yesterday - will continue for now. Urine is tea colored but he's had adequate urine output. Continue Zosyn for scrotal abscess. Platelet count is rebounding slightly (up to 62) since stopping Cefepime; could consider peripheral smear. Today is day # 7 of abx. Successfully reached Dr. Rojas (he is on vacation). He simply wants to have wound RN continue to see him and address the wound (Amber RN recommends packing the wound daily). He will be back in [place] on Friday. Plan - 05/13/17 Patient just completed EEG with results pending. Nursing reports that the patient has been awake and confused with some restlessness this morning. Haldol was changed to Q6H PRN as opposed to scheduled to minimize sedation effect from Haldol. Continue to monitor closely and provide safe and supportive environment. Patient's daughter, Kala, whom is the DPOA requests that prior to any new medication or Ativan, that she be contracted. Patient is not to received Ativan without discussing with her first (her number is on the board in the patient's room). Dobbhof was placed on 05/12 and the patient subsequently removed it on more than one occasion throughout the night. PPN was discontinued on 05/12/17. Will have speech continue to work with patient. May need to consider PEG placement. Will discuss with Dr. Sands and family. Labs today revealed new pancytopenia with WBC decreased to 4.3, Hgb stable at 8.7 and Plt slightly improved to 67. Will continue to monitor closely. New hypokalemia noted with potassium at 3.5. Will give KCl 20 mEq po and continue to monitor closely on telemetry. Sodium stable at 138. Slight increase in SCr to 1.6 and weight noted to be trending up. Will decrease 1/2NS to 50cc/hr and continue to monitor renal function closely. Monitor urinary output closely. Continue Zosyn for scrotal abscess. Platelet count is rebounding slightly (up to 67) since stopping Cefepime; could consider peripheral smear. Today is day # [address] Rojas requests to have wound RN continue to see him and address the wound (Amber RN recommends packing the wound daily). He will be back in [place] on Friday. Will continue daily packings.
[2017-05-13] MEDS: PIPERACILLIN/TAZOBACTAM 2.25 GM in NS 100 ML IV SCH ×2 (18:03→21:21)
[2017-05-14] MEDS: 1/2 NS 1,000 ML IV SCH ×2 (00:57→23:25)
[2017-05-14] MEDS: ACETAMINOPHEN 500 MG TABLET PO SCH ×7 (04:15→23:12)
[2017-05-14] MEDS: PIPERACILLIN/TAZOBACTAM 2.25 GM in NS 100 ML IV SCH ×4 (04:15→21:41)
--- NOTE | 2017-05-14 09:15 | Urology Progress Note ---
Urology Subjective Subjective: confused Urology Results - Labs CBC & Chem 7: 05/14/17 04:44 05/14/17 04:44 Labs: Laboratory Results - last 24 hr 05/14/17 05/14/17 04:44 04:44 WBC 5.7 RBC 2.95 L Hgb 9.2 L Hct 30.1 L MCV 102.0 H MCH 31.2 MCHC 30.6 L RDW Std Deviation 51.6 H Plt Count 75 L MPV 13.7 H Immature Gran % (Auto) 1.0 H Neut % (Auto) 72.0 H Lymph % (Auto) 21.3 L Benzie % (Auto) 5.2 Eos % (Auto) 0.3 Baso % (Auto) 0.2 Neut # (Auto) 4.1 Lymph # (Auto) 1.2 Benzie # (Auto) 0.3 Eos # (Auto) 0.0 Baso # (Auto) 0.0 Abs Immat Gran (auto) 0.06 H Turbidity < 20 Sodium 141 Potassium 3.8 Chloride 109 H Carbon Dioxide 17 L Anion Gap 15 BUN 37.0 H Creatinine 1.4 D GFR Calculation 48 BUN/Creatinine Ratio 26 Glucose 72 L Calculated Osmolality 279 Calcium 8.6 Icterus Index < 2 Specimen Hemolysis 18 Urology Exam Vital signs: Temperature 96.2 F L 05/14/17 08:00 Pulse Rate 86 05/14/17 08:00 Respiratory Rate 24 05/14/17 08:00 Blood Pressure 153/83 H 05/14/17 08:00 Pulse Oximetry 97 05/14/17 08:00 - Constitutional thin Comments: confused - Exam Comments: wound healing well. Good granulation tissue. No signs of infection or necrotic tissue. Assessment and Plan 81M , multiple comorbiditie, Right scrotal abscess s/p I&d and R orchiectomy Plan: - wound healing well. No need fro additional debridements. Continue wound daily dressing changes until wound closes. No need for f/u with urology. - Thank you for the consult. Please call for questions/concerns.
--- NOTE | 2017-05-14 09:23 | Progress Note ---
- Date 05/14/17 Subjective: Mr Barron is seen this morning in follow up. He is sleeping however does awake during examination. He answers some questions with yes and no and falls back asleep. He is breathing on room without distress. Hgb stable at 9.2. Objective Vital signs: Temperature 96.2 F L 05/14/17 08:00 Pulse Rate 86 05/14/17 08:00 Respiratory Rate 24 05/14/17 08:00 Blood Pressure 153/83 H 05/14/17 08:00 Pulse Oximetry 97 05/14/17 08:00 Rhythm: Normal Sinus Rhythm Height/Weight/BMI: Height 1.83 m Weight 69.8 kg Body Mass Index 19.8 - Constitutional Present: no acute distress, well nourished, well developed - Routine HEENT Exam Eye: Present: EOMI ENT: Present: mucous membranes moist, dentition normal - Routine Extremities Exam Present: normal capillary refill - Routine Back/Spine/Pelvis Exam Back/Spine: Present: full ROM - Routine Skin Exam Present: intact, dry, warm - Routine Neurological Exam Present: alert, oriented X3, CN II-XII intact - Routine Psychiatric Exam Present: normal affect Results - Labs CBC & Chem 7: 05/14/17 04:44 05/14/17 04:44 Assessment and Plan (1) Dehydration Current visit: Yes Status: Acute (2) Open wound of scrotum Current visit: Yes Status: Acute (3) Scrotal abscess Current visit: Yes Status: Acute (4) Hypernatremia Current visit: Yes Status: Acute Assessment and Plan: Assessment Scrotal abscess (right) - Testicular pain and swelling secondary Necrotic right testicle, extensive necrosis involving the subcutaneous tissue -I &D with right testicular resection by Dr. 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 Anemia, acute. 05/14/17 EEG was completed yesterday- Spoke with Dr Cruz's nurse and he will read it. Dr. Rojas reports wound looks good and is healing fine. He has no further plans for surgical intervention and does not need to follow him in outpatient setting. Continue with current wound dressing changes Overall labs are stable, Hgb stable 9.2. PLT count improving to 75. Was evaluated by speech therapy yesterday who recommended pureed with nectar thick liquids Patient's daughter, Kala, whom is the DPOA requests that prior to any new medication or Ativan, that she be contracted. Patient is not to received Ativan without discussing with her first (her number is on the board in the patient's room). Will speak with family regarding discharge plans Will discuss with attending, Dr Sands Addendum: Seen and examined patient on same day as the above note. Agree with Sylvia Moreland's note, physical, assessment and plan. The patient is significantly more alert today but does not maintain a train of thought. Does appear that owning is a problem for him and has been exacerbated by the medical procedures. Documented on Dragon speech to text. Efforts to correct speech recognition errors performed, but variation may exist - Physician Narrative Narrative: Date: 05/14/17 Time: 0910 Hospital Course Summary Disclaimer: The visit summary below is not to be considered part of the above Progress Note. Hospital Course: 04/29/16 hospital admission Admit inpatient to the medical floor under the hospitalist service, Dr. Correia attending. It is expected his stay will exceed 2 overnights given his significant dehydration, likelihood of testicular abscess, and general debility. Bailey catheter inserted in ER secondary to acute kidney injury. Testicular sonogram for definitive diagnosis of testicular swelling. Will need urological consult, but will await sono results. Will not proceed with wound culture as there was stool covering the entire wound area. Would defer culture to be taken at time of I&D if this is truly an abscess. First dose of cefepime given an ER. Continue 1 g every 6 hours. Half normal saline started in ER, will continue for rehydration and hypernatremia and acute kidney injury. CT head was performed in the ER for altered mental status. Essentially negative. Patient is on Coumadin for A. fib; however, this will be held given his INR of greater than 10. Vitamin K 10 mg given on admission. Pharmacy to manage Coumadin when it is resumed. Speech consult to determine swallowing status and assist in making dietary recommendations. Patient requests DO NOT RESUSCITATE CODE STATUS Care to return to Dr. Billings upon dismissal. 04/30/17 Testicular sono showing abscess on right side - consult placed with Dr Rojas for evaluation and drainage. Obtain CT to exclude extension of abscess. Continue with cefepime for antimicrobial coverage. Sodium with gradual decrease to 163. Creatinine with decrease to 2.3. Continue 1/2NS at 100 cc/hr for hydration and to normalize sodium. INR with decrease to 7.3 - Vitamin K 5mg x1. Coumadin not restarted due to elevated INR. Daily INRs. Speech to check swallow function. Recheck BMP in am secondary to hypernatremia and NIKKO. Will recheck CBC in am due to scrotal abscess. 05/01/17 Sodium with gradual decrease to 161 with potassium 3.2. Creatinine improved to 1.8. Mentation and oral drive still diminished. Working with Speech-therapeutic NPO recommended. With sodium elevated, patient not ready to work with PT/OT yet. INR decreased to 1.44. Will hold on restarting Coumadin as planning I/D of scrotal abscess on 05/05. Wound team recommending Aquacel AG covered with ABD pad. Continue with cefepime for antimicrobial coverage. Continue 1/2NS, but add 20mEq KCl as potassium decreased. Discussed with about patients status. Hope to see functional improvements once sodium normalized and abscess resolved. Uncertain if swallow function will return. Discussed about Feeding Tube, but too early to make decision about this now. Asked to think about his wishes for feeding tube if swallow function not improving once acute needs resolved. 05/02/17 Sodium unchanged at 161. Potassium increased to 3.4. Creatinine improved to 1.5. Change IVF to D5W with 20KCL at 100cc/hr to help improve sodium. Continue cefepime for coverage of scrotal abscess - not seeing sighs of systemic process due to abscess. I/D planned on 05/05 by urology. Continue Aquacel AG covered with ABD pad as per wound team. Speech working with swallow. Possible PT/OT in near future once mentation improved. Hope to see improvement in mentation as sodium normalizes. 05/03/17 Sodium decreased to 154 with potassium improved to 3.6. Creatinine 1.3 this am. WBC 6.3. Continue D5W with 20KCL at 100cc/hr to help improve sodium. Continue cefepime for coverage of scrotal abscess. I/D planned on 05/05 by urology. Continue Aquacel AG covered with ABD pad as per wound team. Will give Lovenox 40mg SQ x1 for DVT prevention. Speech working with swallow-improvement in oral intake noted. With continued encephalopathy, do not feel patient ready for PT/OT at this time. Will check Vitamin B12 secondary to macrocytosis and encephalopathy. 05/04/17. Sodium continues to trend down at 152. Potassium stable at 3.7. WBC stable at 5.3. Creatinine 1.2. Continue D5W with 20KCL at 100cc/hr to help improve sodium. Will recheck BMP in AM to monitor electrolytes and renal function. Weight trending up. Continue to monitor closely for fluid overload. Continue cefepime for coverage of scrotal abscess. I/D planned on 05/05 by urology. Continue Aquacel AG covered with ABD pad as per wound team. Will hold Lovenox today due to anticipated I&D tomorrow and would recommend considering restarting Lovenox following procedure for DVT prophylaxis. Encourage SCDs. Increased sedation today per family. Medication list reviewed. Morphine decreased to 1mg Q3-4 hours PRN. Monitor closely for improvement in alertness. Speech working with swallow-improvement in oral intake noted. With continued encephalopathy, do not feel patient ready for PT/OT at this time. Will check Vitamin B12 secondary to macrocytosis and encephalopathy - results pending. 05/05/17 Underwent I/D of right scrotal abscess with debridement of necrotic tissue - right testicle removed. Wound team reconsulted secondary to open wound of right scrotum. Sodium decreased to 146. Will continue with D5W with 20 KCL, but decrease rate to 75cc/hr. Continue with speech therapy to help swallow function. Will have PT/OT evaluate tomorrow to work on improving strength. Now that sodium approaching normal, hope mentation will clear. B12 level pending. Potentially can restart Coumadin protocol tomorrow. 05/07 Asked nursing staff to have Speech therapy work with PO intake today Underwent I/D of right scrotal abscess with debridement of necrotic tissue - right testicle removed on 05/05/2017. Wound team to manage scrotal wound and dressing changes Continues to be agitated requiring one to one care. ?morphine related Lovenox contraindicated given thrombocytopenia 05/08 Still markedly encephalopathic; last Morphine on 05/04 at 0117 and last Ativan on 05/07 at [address] Ad[address] head [address] showed moderate atrophy without acute findings. He's been off anticoagulants since 05/03/17 and w/ history of a-fib he is at higher risk of stroke. CT repeated - no acute findings N/V x2; abdominal xray reviewed - moderate amount of stool with large rectal stool ball. Will ask nursing to attempt disimpaction; could try fleet's enema. Concerned about patient's ability to cooperate with aggressive measures. Continue wound care for recent testicular resection/wound. Continue Cefepime. Thrombocytopenia persists with plt count of 79 Continue PPN. Unable to take in anything PO. 05/09 Still markedly encephalopathic; head CT was repeated yesterday showing moderate to severe atrophy but no acute findings. With minimal improvement in encephalopathy, will consult Dr. Cruz. He may need an MRI and or EEG. We will hold any centrally acting medications including benzodiazepines and narcotics - these had been discontinued, however, Ativan was reordered this morning and he received a 1 mg dose at 0235. RN was able to minimally disimpact fecal stool burden and administer fleets enema yesterday. Platelet count decreased again today to 60,000. There is also been an increase in the lining creatinine up to 49 and 1.5. His urine has been dark faviola to tea- colored, and he has been oliguric. Yesterday he averaged 12 mL per kilo per hour. We'll give 500 cc bolus of normal saline. Continue PPN. Continue cefepime and wound care. 05/11 Plan Patient remains obtunded w/o clear cause. Appreciate consultants help. Delerium? Will schedule low-dose Haldol IV to see if there is any improvement. If none- will need to change back to PRN. Continue scheduled APAP AL for pain control. Continue antibiotics- afebrile. He is pancytopenic- may need peripheral smear if persists. May need to change Zosyn to alternative medications. Hypernatremia has resolved, but he still appears a bit dry. Will add supplemental IVF. Elevated BUN may indicate that we need to decrease the AA/Protein in the TPN. Pharmacy consulted for TPN management. Consider placing Dubhoff and starting TF. Still has significant stool in rectum. Could consider repeating CT of the pelvis with rectal contrast if persists. Monitor BP, as it is trending up. Overall, remains ill. He continues to be deemed high risk given severity of illness and complexity. 05/12/17 No appreciable improvement with recent addition of scheduled Haldol. Will order EEG. Will need to discuss Dobbhoff placement with family (rather than PPN). Dr. Whitlock discussed this with Mrs. Barron yesterday and she was agreeable to Dobbhoff placement. BUN decreasing with addition of fluids (1/2 NS) yesterday - will continue for now. Urine is tea colored but he's had adequate urine output. Continue Zosyn for scrotal abscess. Platelet count is rebounding slightly (up to 62) since stopping Cefepime; could consider peripheral smear. Today is day # 7 of abx. Successfully reached Dr. Rojas (he is on vacation). He simply wants to have wound RN continue to see him and address the wound (Amber RN recommends packing the wound daily). He will be back in [place] on Friday. Plan - 05/13/17 Patient just completed EEG with results pending. Nursing reports that the patient has been awake and confused with some restlessness this morning. Haldol was changed to Q6H PRN as opposed to scheduled to minimize sedation effect from Haldol. Continue to monitor closely and provide safe and supportive environment. Patient's daughter, Kala, whom is the DPOA requests that prior to any new medication or Ativan, that she be contracted. Patient is not to received Ativan without discussing with her first (her number is on the board in the patient's room). Dobbhof was placed on 05/12 and the patient subsequently removed it on more than one occasion throughout the night. PPN was discontinued on 05/12/17. Will have speech continue to work with patient. May need to consider PEG placement. Will discuss with Dr. Sands and family. Labs today revealed new pancytopenia with WBC decreased to 4.3, Hgb stable at 8.7 and Plt slightly improved to 67. Will continue to monitor closely. New hypokalemia noted with potassium at 3.5. Will give KCl 20 mEq po and continue to monitor closely on telemetry. Sodium stable at 138. Slight increase in SCr to 1.6 and weight noted to be trending up. Will decrease 1/2NS to 50cc/hr and continue to monitor renal function closely. Monitor urinary output closely. Continue Zosyn for scrotal abscess. Platelet count is rebounding slightly (up to 67) since stopping Cefepime; could consider peripheral smear. Today is day # [address] Rojas requests to have wound RN continue to see him and address the wound (Amber RN recommends packing the wound daily). He will be back in [place] on Friday. Will continue daily packings. 05/14/17 EEG was completed yesterday- Spoke with Dr Cruz's nurse and he will read it. Dr. Rojas reports wound looks good and is healing fine. He has no further plans for surgical intervention and does not need to follow him in outpatient setting. Continue with current wound dressing changes Overall labs are stable, Hgb stable 9.2. PLT count improving to 75. Was evaluated by speech therapy yesterday who recommended pureed with nectar thick liquids Patient's daughter, Kala, whom is the DPOA requests that prior to any new medication or Ativan, that she be contracted. Patient is not to received Ativan without discussing with her first (her number is on the board in the patient's room). Will speak with family regarding discharge plans Will discuss with attending, Dr Sands
[2017-05-14] MEDS: CLOTRIMAZOLE 10 MG TROCHE MM SCH ×5 (09:44→23:07)
[2017-05-14] MEDS: PANTOPRAZOLE 40 MG INJECTION IVP SCH (09:47)
[2017-05-14] MEDS: ACETAMINOPHEN 650 MG SUPPOSITORY PR SCH ×4 (09:47→23:13)
[2017-05-14] MEDS: LIDOCAINE 5% PATCH TOP SCH (09:47)
[2017-05-14] MEDS ORDERED: POTASSIUM CHLORIDE 20 MEQ/15 ML ORAL LIQUID PO ONE (14:40)
[2017-05-14] MEDS: LIDOCAINE PATCH REMOVAL TOP SCH (21:30)
[2017-05-15] MEDS: ACETAMINOPHEN 500 MG TABLET PO SCH ×6 (02:57→21:31)
[2017-05-15] MEDS: PIPERACILLIN/TAZOBACTAM 2.25 GM in NS 100 ML IV SCH ×4 (05:38→22:32)
[2017-05-15] MEDS ORDERED: ACETAMINOPHEN 650 MG SUPPOSITORY PR PRN (08:12)
[2017-05-15] MEDS: LIDOCAINE 5% PATCH TOP SCH (10:08)
[2017-05-15] MEDS: PANTOPRAZOLE 40 MG INJECTION IVP SCH (10:08)
[2017-05-15] MEDS: CLOTRIMAZOLE 10 MG TROCHE MM SCH ×5 (10:09→21:31)
--- NOTE | 2017-05-15 13:27 | Progress Note ---
- Date 05/15/17 Subjective: Chano Haley is seen today in follow up while he is sleeping. He does not arouse during examination and verbal stimulation. He is comfortably breathing on room air without evidence of distress. Vital signs normal. Objective Vital signs: Temperature 95.8 F L 05/15/17 11:07 Pulse Rate 98 05/15/17 11:07 Respiratory Rate 18 05/15/17 11:07 Blood Pressure 152/88 H 05/15/17 11:07 Pulse Oximetry 100 05/15/17 11:07 Height/Weight/BMI: Height 1.83 m Weight 71.1 kg Body Mass Index 19.8 - Constitutional Present: no acute distress, well nourished - Routine HEENT Exam ENT: Present: mucous membranes moist - Routine Respiratory Exam Present: diminished air movement. Absent: wheezes - Routine Cardiovascular Exam Present: RRR, S1, S2. Absent: murmur - Routine Abdominal Exam Present: soft, normoactive bowel sounds, non distended. Absent: tenderness - Routine Extremities Exam Present: no edema - Routine Skin Exam Present: intact, dry, warm - Routine Neurological Exam Present: altered mental status - Routine Lymphatic Exam Lymphatic: Absent: adenopathy - Routine Psychiatric Exam Present: cooperative Results - Labs CBC & Chem 7: 05/15/17 04:25 05/15/17 04:25 Assessment and Plan (1) Dehydration Current visit: Yes Status: Acute (2) Open wound of scrotum Current visit: Yes Status: Acute (3) Scrotal abscess Current visit: Yes Status: Acute (4) Hypernatremia Current visit: Yes Status: Acute Assessment and Plan: Assessment Scrotal abscess (right) - Testicular pain and swelling secondary Necrotic right testicle, extensive necrosis involving the subcutaneous tissue -I &D with right testicular resection by Dr. 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 Anemia, acute. 05/15/17 Overall medically stable Reviewed speech therapy recommendations from evaluation done yesterday. They did recommend upgrading diet to pureed with nectar thick liquids It is reported. Patient 75% of breakfast Scrotal wound is evaluated by Dr. Rojas who recommends continuing daily wound dressing changes until wound closes. No need for further follow-up Discussed case with case management, looking for discharge placement. Will discuss with attending, Dr Sands Patient's daughter, Kala, whom is the DPOA requests that prior to any new medication or Ativan, that she be contracted. Patient is not to received Ativan without discussing with her first (her number is on the board in the patient's room). Addendum: Seen and examined patient on same day as the above note. Agree with the note from nurse practitioner Sylvia Moreland, physical, assessment and plan. Comprehensive physical findings correlate to the above note. 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 Documented on [facility] speech to text. Efforts to correct speech recognition errors performed, but variation may exist - Physician Narrative Narrative: Date: 05/15/17 Time: 1317 Hospital Course Summary Disclaimer: The visit summary below is not to be considered part of the above Progress Note. Hospital Course: 04/29/16 hospital admission Admit inpatient to the medical floor under the hospitalist service, Dr. Correia attending. It is expected his stay will exceed 2 overnights given his significant dehydration, likelihood of testicular abscess, and general debility. Bailey catheter inserted in ER secondary to acute kidney injury. Testicular sonogram for definitive diagnosis of testicular swelling. Will need urological consult, but will await sono results. Will not proceed with wound culture as there was stool covering the entire wound area. Would defer culture to be taken at time of I&D if this is truly an abscess. First dose of cefepime given an ER. Continue 1 g every 6 hours. Half normal saline started in ER, will continue for rehydration and hypernatremia and acute kidney injury. CT head was performed in the ER for altered mental status. Essentially negative. Patient is on Coumadin for A. fib; however, this will be held given his INR of greater than 10. Vitamin K 10 mg given on admission. Pharmacy to manage Coumadin when it is resumed. Speech consult to determine swallowing status and assist in making dietary recommendations. Patient requests DO NOT RESUSCITATE CODE STATUS Care to return to Dr. Billings upon dismissal. 04/30/17 Testicular sono showing abscess on right side - consult placed with Dr Rojas for evaluation and drainage. Obtain CT to exclude extension of abscess. Continue with cefepime for antimicrobial coverage. Sodium with gradual decrease to 163. Creatinine with decrease to 2.3. Continue 1/2NS at 100 cc/hr for hydration and to normalize sodium. INR with decrease to 7.3 - Vitamin K 5mg x1. Coumadin not restarted due to elevated INR. Daily INRs. Speech to check swallow function. Recheck BMP in am secondary to hypernatremia and NIKKO. Will recheck CBC in am due to scrotal abscess. 05/01/17 Sodium with gradual decrease to 161 with potassium 3.2. Creatinine improved to 1.8. Mentation and oral drive still diminished. Working with Speech-therapeutic NPO recommended. With sodium elevated, patient not ready to work with PT/OT yet. INR decreased to 1.44. Will hold on restarting Coumadin as planning I/D of scrotal abscess on 05/05. Wound team recommending Aquacel AG covered with ABD pad. Continue with cefepime for antimicrobial coverage. Continue 1/2NS, but add 20mEq KCl as potassium decreased. Discussed with about patients status. Hope to see functional improvements once sodium normalized and abscess resolved. Uncertain if swallow function will return. Discussed about Feeding Tube, but too early to make decision about this now. Asked to think about his wishes for feeding tube if swallow function not improving once acute needs resolved. 05/02/17 Sodium unchanged at 161. Potassium increased to 3.4. Creatinine improved to 1.5. Change IVF to D5W with 20KCL at 100cc/hr to help improve sodium. Continue cefepime for coverage of scrotal abscess - not seeing sighs of systemic process due to abscess. I/D planned on 05/05 by urology. Continue Aquacel AG covered with ABD pad as per wound team. Speech working with swallow. Possible PT/OT in near future once mentation improved. Hope to see improvement in mentation as sodium normalizes. 05/03/17 Sodium decreased to 154 with potassium improved to 3.6. Creatinine 1.3 this am. WBC 6.3. Continue D5W with 20KCL at 100cc/hr to help improve sodium. Continue cefepime for coverage of scrotal abscess. I/D planned on 05/05 by urology. Continue Aquacel AG covered with ABD pad as per wound team. Will give Lovenox 40mg SQ x1 for DVT prevention. Speech working with swallow-improvement in oral intake noted. With continued encephalopathy, do not feel patient ready for PT/OT at this time. Will check Vitamin B12 secondary to macrocytosis and encephalopathy. 05/04/17. Sodium continues to trend down at 152. Potassium stable at 3.7. WBC stable at 5.3. Creatinine 1.2. Continue D5W with 20KCL at 100cc/hr to help improve sodium. Will recheck BMP in AM to monitor electrolytes and renal function. Weight trending up. Continue to monitor closely for fluid overload. Continue cefepime for coverage of scrotal abscess. I/D planned on 05/05 by urology. Continue Aquacel AG covered with ABD pad as per wound team. Will hold Lovenox today due to anticipated I&D tomorrow and would recommend considering restarting Lovenox following procedure for DVT prophylaxis. Encourage SCDs. Increased sedation today per family. Medication list reviewed. Morphine decreased to 1mg Q3-4 hours PRN. Monitor closely for improvement in alertness. Speech working with swallow-improvement in oral intake noted. With continued encephalopathy, do not feel patient ready for PT/OT at this time. Will check Vitamin B12 secondary to macrocytosis and encephalopathy - results pending. 05/05/17 Underwent I/D of right scrotal abscess with debridement of necrotic tissue - right testicle removed. Wound team reconsulted secondary to open wound of right scrotum. Sodium decreased to 146. Will continue with D5W with 20 KCL, but decrease rate to 75cc/hr. Continue with speech therapy to help swallow function. Will have PT/OT evaluate tomorrow to work on improving strength. Now that sodium approaching normal, hope mentation will clear. B12 level pending. Potentially can restart Coumadin protocol tomorrow. 05/07 Asked nursing staff to have Speech therapy work with PO intake today Underwent I/D of right scrotal abscess with debridement of necrotic tissue - right testicle removed on 05/05/2017. Wound team to manage scrotal wound and dressing changes Continues to be agitated requiring one to one care. ?morphine related Lovenox contraindicated given thrombocytopenia 05/08 Still markedly encephalopathic; last Morphine on 05/04 at 0117 and last Ativan on 05/07 at [address] Ad[address] showed moderate atrophy without acute findings. He's been off anticoagulants since 05/03/17 and w/ history of a-fib he is at higher risk of stroke. CT repeated - no acute findings N/V x2; abdominal xray reviewed - moderate amount of stool with large rectal stool ball. Will ask nursing to attempt disimpaction; could try fleet's enema. Concerned about patient's ability to cooperate with aggressive measures. Continue wound care for recent testicular resection/wound. Continue Cefepime. Thrombocytopenia persists with plt count of 79 Continue PPN. Unable to take in anything PO. 05/09 Still markedly encephalopathic; head CT was repeated yesterday showing moderate to severe atrophy but no acute findings. With minimal improvement in encephalopathy, will consult Dr. Curz. He may need an MRI and or EEG. We will hold any centrally acting medications including benzodiazepines and narcotics - these had been discontinued, however, Ativan was reordered this morning and he received a 1 mg dose at 0235. RN was able to minimally disimpact fecal stool burden and administer fleets enema yesterday. Platelet count decreased again today to 60,000. There is also been an increase in the lining creatinine up to 49 and 1.5. His urine has been dark faviola to tea- colored, and he has been oliguric. Yesterday he averaged 12 mL per kilo per hour. We'll give 500 cc bolus of normal saline. Continue PPN. Continue cefepime and wound care. 05/11 Plan Patient remains obtunded w/o clear cause. Appreciate consultants help. Delerium? Will schedule low-dose Haldol IV to see if there is any improvement. If none- will need to change back to PRN. Continue scheduled APAP HI for pain control. Continue antibiotics- afebrile. He is pancytopenic- may need peripheral smear if persists. May need to change Zosyn to alternative medications. Hypernatremia has resolved, but he still appears a bit dry. Will add supplemental IVF. Elevated BUN may indicate that we need to decrease the AA/Protein in the TPN. Pharmacy consulted for TPN management. Consider placing Dubhoff and starting TF. Still has significant stool in rectum. Could consider repeating CT of the pelvis with rectal contrast if persists. Monitor BP, as it is trending up. Overall, remains ill. He continues to be deemed high risk given severity of illness and complexity. 05/12/17 No appreciable improvement with recent addition of scheduled Haldol. Will order EEG. Will need to discuss Dobbhoff placement with family (rather than PPN). Dr. Whitlock discussed this with Mrs. Barron yesterday and she was agreeable to Dobbhoff placement. BUN decreasing with addition of fluids (1/2 NS) yesterday - will continue for now. Urine is tea colored but he's had adequate urine output. Continue Zosyn for scrotal abscess. Platelet count is rebounding slightly (up to 62) since stopping Cefepime; could consider peripheral smear. Today is day # 7 of abx. Successfully reached Dr. Rojas (he is on vacation). He simply wants to have wound RN continue to see him and address the wound (Amber RN recommends packing the wound daily). He will be back in [place] on Friday. Plan - 05/13/17 Patient just completed EEG with results pending. Nursing reports that the patient has been awake and confused with some restlessness this morning. Haldol was changed to Q6H PRN as opposed to scheduled to minimize sedation effect from Haldol. Continue to monitor closely and provide safe and supportive environment. Patient's daughter, Kala, whom is the DPOA requests that prior to any new medication or Ativan, that she be contracted. Patient is not to received Ativan without discussing with her first (her number is on the board in the patient's room). Dobbhof was placed on 05/12 and the patient subsequently removed it on more than one occasion throughout the night. PPN was discontinued on 05/12/17. Will have speech continue to work with patient. May need to consider PEG placement. Will discuss with Dr. Sands and family. Labs today revealed new pancytopenia with WBC decreased to 4.3, Hgb stable at 8.7 and Plt slightly improved to 67. Will continue to monitor closely. New hypokalemia noted with potassium at 3.5. Will give KCl 20 mEq po and continue to monitor closely on telemetry. Sodium stable at 138. Slight increase in SCr to 1.6 and weight noted to be trending up. Will decrease 1/2NS to 50cc/hr and continue to monitor renal function closely. Monitor urinary output closely. Continue Zosyn for scrotal abscess. Platelet count is rebounding slightly (up to 67) since stopping Cefepime; could consider peripheral smear. Today is day # [address] Rojas requests to have wound RN continue to see him and address the wound (Amber RN recommends packing the wound daily). He will be back in [place] on Friday. Will continue daily packings. 05/14/17 EEG was completed yesterday- Spoke with Dr Cruz's nurse and he will read it. Dr. Rojas reports wound looks good and is healing fine. He has no further plans for surgical intervention and does not need to follow him in outpatient setting. Continue with current wound dressing changes Overall labs are stable, Hgb stable 9.2. PLT count improving to 75. Was evaluated by speech therapy yesterday who recommended pureed with nectar thick liquids Patient's daughter, Kala, whom is the DPOA requests that prior to any new medication or Ativan, that she be contracted. Patient is not to received Ativan without discussing with her first (her number is on the board in the patient's room). Will speak with family regarding discharge plans Will discuss with attending, Dr Sands 05/15/17 Overall medically stable Reviewed speech therapy recommendations from evaluation done yesterday. They did recommend upgrading diet to pureed with nectar thick liquids It is reported. Patient 75% of breakfast Scrotal wound is evaluated by Dr. Rojas who recommends continuing daily wound dressing changes until wound closes. No need for further follow-up Discussed case with case management, looking for discharge placement. Will discuss with attending, Dr Sands Patient's daughter, Kala, whom is the DPOA requests that prior to any new medication or Ativan, that she be contracted. Patient is not to received Ativan without discussing with her first (her number is on the board in the patient's room).
--- NOTE | 2017-05-15 14:30 | Wound Care Progress Note ---
Wound Management - Patient Status Premedicated Prior to Dressing Change: No - Wound Right Scrotum Wound Present on Admission?: No Wound Bed Appearance: Beefy Red, Aldrich Kenzie Wound Appearance: Roll Under Edges Tunneling: Yes Undermining: No Drainage Description: Serous Drainage Amount: Scant Drainage Odor: No Odor Dressing Status: Changed Packing Type: Gauze Roll Number of Packing Pieces Removed?: 1 Number of Packing Pieces Placed?: 1 Primary Dressing: Absorbant Pad (Pt has an open area where his testies was removed. Open area appears to be closing some on it own. No foul odor and drainage noted and pt tolerated procedure well.) Dressing Change Date: 05/15/17 Dressing Change Time: 14:30 Dressing Change Patient Tolerance: Tolerated Well
[2017-05-15] MEDS: 1/2 NS 1,000 ML IV SCH (21:30)
[2017-05-15] MEDS: LIDOCAINE PATCH REMOVAL TOP SCH (22:31)
[2017-05-16] MEDS: ACETAMINOPHEN 500 MG TABLET PO SCH ×4 (02:24→12:59)
[2017-05-16] MEDS: PIPERACILLIN/TAZOBACTAM 2.25 GM in NS 100 ML IV SCH ×2 (03:17→10:49)
[2017-05-16 08:56] VITALS: BMI 21.2
[2017-05-16] MEDS: LIDOCAINE 5% PATCH TOP SCH (10:49)
[2017-05-16] MEDS: CLOTRIMAZOLE 10 MG TROCHE MM SCH ×3 (10:50→14:26)
[2017-05-16] MEDS: PANTOPRAZOLE 40 MG INJECTION IVP SCH (10:50)
--- NOTE | 2017-05-16 11:36 | Extended Care Facility Orders ---
Admission Orders Admit to:: Retirement Allergies/Adverse Reactions: Allergies beclomethasone [From Vancenase] Allergy (Unknown, Verified 04/29/17 16:33) benazepril [From Lotensin] Allergy (Unknown, Verified 04/29/17 16:33) chlorpheniramine [From Tussionex] Allergy (Unknown, Verified 04/29/17 16:34) hydrocodone [From Tussionex] Allergy (Unknown, Verified 04/29/17 16:34) lisinopril Allergy (Unknown, Verified 04/29/17 16:34) tamsulosin [From Flomax] Allergy (Unknown, Verified 04/29/17 16:33) lorazepam Adverse Reaction (Verified 05/12/17 12:59) Somnolence beclomethasone dipropionate Allergy (Unknown, Uncoded 12/20/15 18:19) benazepril HCl Allergy (Unknown, Uncoded 12/20/15 18:19) [place] nuts Allergy (Unknown, Uncoded 12/20/15 18:19) Chlorpheniramine Polistirex Allergy (Unknown, Uncoded 12/20/15 18:19) Hydrocodone Polistrx Allergy (Unknown, Uncoded 12/20/15 18:19) pseudoephedrine HCl Allergy (Unknown, Uncoded 12/20/15 18:19) tamsulosin HCl Allergy (Unknown, Uncoded 12/20/15 18:19) Admitting Diagnosis: Hypernatremia Admitting Physician: Oni Sands MD Attending Physician: Oni Sands MD Code Status: Do Not Resuscitate Anticiapted Length of Stay: 30 days or less Rehab Potential: fair Rehab Prognosis: fair Diet: Pured diet with nectar thick liquids Wound/Incision Care: Scrotal dressing changes daily May use Facility Protocol or Standing Orders: Yes May have flu vaccine: Yes Evaluations/Treatment: Speech, PT, OT Retirement Certification: I certify that SNF services are required to be given on an Inpatient basis because of the patients need for group home care on a continuing basis for the condition(s) for which he/she received inpatient hospital services prior to his/her transfer to the SNF. SNF inpatient care is necessary for the following reasons Indication for Retirement: Other (PT, OT, speech) - Additional Information In Event of Arrest: Do Not Start CPR Referrals: Goering,Robert V, MD [Family Provider] - 1 Week (Please follow-up with Dr. Billings)
--- NOTE | 2017-05-16 11:39 | Discharge Summary ---
Discharge Information Date of admission: 04/29/17 15:07 Anticipated date of discharge: 05/16/17 Attending Physician: Oni Sands MD Primary care physician: Robert Billings MD Consults: Dr. Rojas-urologist Dr. Brady and Dr. Zamudio-surgeons for wound evaluation Dr. Cruz-neurologist Wound care team for ongoing wound management and dressing changes - Discharge Diagnosis (1) Dehydration Status: Acute (2) Open wound of scrotum Status: Acute (3) Scrotal abscess Status: Acute (4) Hypernatremia Status: Acute Scrotal abscess (right) - Testicular pain and swelling secondary Necrotic right testicle, extensive necrosis involving the subcutaneous tissue -I &D with right testicular resection by Dr. 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 Anemia, acute. - Procedures Procedures: 05/05/17-incision and drainage of right scrotal abscessed with right orchiectomy and debridement of necrotic tissue-Dr. Rojas - Laboratory Labs: 05/16/17 03:56 05/16/17 03:56 - Microbiology Microbiology 04/29/17 14:14 Peripheral/Iv Start Blood Culture - Final No Growth After 5 Days 04/29/17 14:17 Peripheral/Iv Start Blood Culture - Final No Growth After 5 Days - Radiology Radiology: 04/29/17-chest x-ray-no acute cardiopulmonary abnormalities. 04/29/17-CT scan of the head-no intracranial abnormalities or hemorrhage 04/30/17-scrotal ultrasound-large right scrotal abscess with Right epididymoorchitis. 04/30/17-CT pelvis-Impression: Scrotal abscess, better seen on ultrasound. No CT evidence to suggest necrotizing fasciitis/Joshua's gangrene. 05/08/17-abdominal e-fin-Ioxeexwero: Nonobstructive nonspecific bowel gas pattern. Rectal stool ball could represent a fecal impaction. 05/08/17-chest x-ray without acute cardiopulmonary abnormalities 05/08/17-CT scan of the brain-negative for acute intracranial abnormality or hemorrhage 05/08/17-CT scan of soft tissue neck-Impression: Esophageal thickening could be due to esophagitis or possibly neoplasm. Recommend upper endoscopy. 05/09/17-MRI of the brain.- Impression- No acute infarct or acute intracranial hemorrhage. 05/10/17. Abdominal [id number] stool in rectal vault without impaction 05/12/17-abdominal x-ray- The metallic tip the Dobbhoff is in the greater curvature and would need to be pushed in probably in the vicinity of 24 cm to reach the distal duodenal C-loop. [id number] KUB- No evidence for obstruction or perforation. Dobbhoff tube in place with tip at the pylorus. - Pathology Right testicle- focal acute and chronic inflammation compatible with clinical history of scrotal abscess. No tumor identified. History of Present Illness HPI: "Silvia" is an 81-year-old male who resides at home with his here in [place]. He was brought into the emergency room by EMS today because his found a "pool of blood" underneath him. She states he's been "lethargic" and in bed for the past 6 days or so. She reports he never had any nausea or vomiting or cough, so she didn't think he needed medical attention. He has not been eating or drinking much. She states he's been complaining of testicular pain for "quite a while." This is the first time she's noted blood. She reports that she herself has fallen several times over the past several days, so she's been in bed the past few days as well. Their daughter, Kala Montilla, lives in [place] and is their DPOA-H. She contributes to the history as well. She has seen a progressive decline over the last 6-9 months. Patient had a stroke in November 2011 at which time he was also diagnosed with atrial fibrillation. and daughter both state over the past 6-9 months he's had more issues with not being able to come up with the words he wants to use and this is very frustrating to him. Over the past several days his speech has become harder to understand. Objective Vital signs: Temperature 97.1 F 05/16/17 07:46 Pulse Rate 77 05/16/17 07:46 Respiratory Rate 20 05/16/17 07:46 Blood Pressure 146/85 H 05/16/17 07:46 Pulse Oximetry 99 05/16/17 07:46 Rhythm: Normal Sinus Rhythm Height/Weight/BMI: Height 1.83 m Weight 71.1 kg Body Mass Index 21.2 - Constitutional Present: no acute distress, well nourished, well developed - Routine HEENT Exam Eye: Present: EOMI ENT: Present: mucous membranes moist, dentition normal - Routine Respiratory Exam Present: CTA bilaterally. Absent: wheezes - Routine Cardiovascular Exam Present: RRR, S1, S2. Absent: murmur - Routine Abdominal Exam Present: soft, normoactive bowel sounds, non distended. Absent: tenderness - Routine Extremities Exam Present: normal capillary refill - Routine Skin Exam Present: intact, dry, warm - Routine Neurological Exam Present: alert, CN II-XII intact, moving all extremities - Routine Lymphatic Exam Lymphatic: Absent: adenopathy - Routine Psychiatric Exam Present: cooperative Hospital Course This is a general summary of the patient's hospital course. For more details refer to the complete medical record. Hospital course: 04/29/16 hospital admission Admit inpatient to the medical floor under the hospitalist service, Dr. Correia attending. It is expected his stay will exceed 2 overnights given his significant dehydration, likelihood of testicular abscess, and general debility. Bailey catheter inserted in ER secondary to acute kidney injury. Testicular sonogram for definitive diagnosis of testicular swelling. Will need urological consult, but will await sono results. Will not proceed with wound culture as there was stool covering the entire wound area. Would defer culture to be taken at time of I&D if this is truly an abscess. First dose of cefepime given an ER. Continue 1 g every 6 hours. Half normal saline started in ER, will continue for rehydration and hypernatremia and acute kidney injury. CT head was performed in the ER for altered mental status. Essentially negative. Patient is on Coumadin for A. fib; however, this will be held given his INR of greater than 10. Vitamin K 10 mg given on admission. Pharmacy to manage Coumadin when it is resumed. Speech consult to determine swallowing status and assist in making dietary recommendations. Patient requests DO NOT RESUSCITATE CODE STATUS Care to return to Dr. Billings upon dismissal. 04/30/17 Testicular sono showing abscess on right side - consult placed with Dr Rojas for evaluation and drainage. Obtain CT to exclude extension of abscess. Continue with cefepime for antimicrobial coverage. Sodium with gradual decrease to 163. Creatinine with decrease to 2.3. Continue 1/2NS at 100 cc/hr for hydration and to normalize sodium. INR with decrease to 7.3 - Vitamin K 5mg x1. Coumadin not restarted due to elevated INR. Daily INRs. Speech to check swallow function. Recheck BMP in am secondary to hypernatremia and NIKKO. Will recheck CBC in am due to scrotal abscess. 05/01/17 Sodium with gradual decrease to 161 with potassium 3.2. Creatinine improved to 1.8. Mentation and oral drive still diminished. Working with Speech-therapeutic NPO recommended. With sodium elevated, patient not ready to work with PT/OT yet. INR decreased to 1.44. Will hold on restarting Coumadin as planning I/D of scrotal abscess on 05/05. Wound team recommending Aquacel AG covered with ABD pad. Continue with cefepime for antimicrobial coverage. Continue 1/2NS, but add 20mEq KCl as potassium decreased. Discussed with about patients status. Hope to see functional improvements once sodium normalized and abscess resolved. Uncertain if swallow function will return. Discussed about Feeding Tube, but too early to make decision about this now. Asked to think about his wishes for feeding tube if swallow function not improving once acute needs resolved. 05/02/17 Sodium unchanged at 161. Potassium increased to 3.4. Creatinine improved to 1.5. Change IVF to D5W with 20KCL at 100cc/hr to help improve sodium. Continue cefepime for coverage of scrotal abscess - not seeing sighs of systemic process due to abscess. I/D planned on 05/05 by urology. Continue Aquacel AG covered with ABD pad as per wound team. Speech working with swallow. Possible PT/OT in near future once mentation improved. Hope to see improvement in mentation as sodium normalizes. 05/03/17 Sodium decreased to 154 with potassium improved to 3.6. Creatinine 1.3 this am. WBC 6.3. Continue D5W with 20KCL at 100cc/hr to help improve sodium. Continue cefepime for coverage of scrotal abscess. I/D planned on 05/05 by urology. Continue Aquacel AG covered with ABD pad as per wound team. Will give Lovenox 40mg SQ x1 for DVT prevention. Speech working with swallow-improvement in oral intake noted. With continued encephalopathy, do not feel patient ready for PT/OT at this time. Will check Vitamin B12 secondary to macrocytosis and encephalopathy. 05/04/17. Sodium continues to trend down at 152. Potassium stable at 3.7. WBC stable at 5.3. Creatinine 1.2. Continue D5W with 20KCL at 100cc/hr to help improve sodium. Will recheck BMP in AM to monitor electrolytes and renal function. Weight trending up. Continue to monitor closely for fluid overload. Continue cefepime for coverage of scrotal abscess. I/D planned on 05/05 by urology. Continue Aquacel AG covered with ABD pad as per wound team. Will hold Lovenox today due to anticipated I&D tomorrow and would recommend considering restarting Lovenox following procedure for DVT prophylaxis. Encourage SCDs. Increased sedation today per family. Medication list reviewed. Morphine decreased to 1mg Q3-4 hours PRN. Monitor closely for improvement in alertness. Speech working with swallow-improvement in oral intake noted. With continued encephalopathy, do not feel patient ready for PT/OT at this time. Will check Vitamin B12 secondary to macrocytosis and encephalopathy - results pending. 05/05/17 Underwent I/D of right scrotal abscess with debridement of necrotic tissue - right testicle removed. Wound team reconsulted secondary to open wound of right scrotum. Sodium decreased to 146. Will continue with D5W with 20 KCL, but decrease rate to 75cc/hr. Continue with speech therapy to help swallow function. Will have PT/OT evaluate tomorrow to work on improving strength. Now that sodium approaching normal, hope mentation will clear. B12 level pending. Potentially can restart Coumadin protocol tomorrow. 05/07 Asked nursing staff to have Speech therapy work with PO intake today Underwent I/D of right scrotal abscess with debridement of necrotic tissue - right testicle removed on 05/05/2017. Wound team to manage scrotal wound and dressing changes Continues to be agitated requiring one to one care. ?morphine related Lovenox contraindicated given thrombocytopenia 05/08 Still markedly encephalopathic; last Morphine on 05/04 at 0117 and last Ativan on 05/07 at [address] Ad[address] head [address] showed moderate atrophy without acute findings. He's been off anticoagulants since 05/03/17 and w/ history of a-fib he is at higher risk of stroke. CT repeated - no acute findings N/V x2; abdominal xray reviewed - moderate amount of stool with large rectal stool ball. Will ask nursing to attempt disimpaction; could try fleet's enema. Concerned about patient's ability to cooperate with aggressive measures. Continue wound care for recent testicular resection/wound. Continue Cefepime. Thrombocytopenia persists with plt count of 79 Continue PPN. Unable to take in anything PO. 05/09 Still markedly encephalopathic; head CT was repeated yesterday showing moderate to severe atrophy but no acute findings. With minimal improvement in encephalopathy, will consult Dr. Cruz. He may need an MRI and or EEG. We will hold any centrally acting medications including benzodiazepines and narcotics - these had been discontinued, however, Ativan was reordered this morning and he received a 1 mg dose at 0235. RN was able to minimally disimpact fecal stool burden and administer fleets enema yesterday. Platelet count decreased again today to 60,000. There is also been an increase in the lining creatinine up to 49 and 1.5. His urine has been dark faviola to tea- colored, and he has been oliguric. Yesterday he averaged 12 mL per kilo per hour. We'll give 500 cc bolus of normal saline. Continue PPN. Continue cefepime and wound care. 05/11 Plan Patient remains obtunded w/o clear cause. Appreciate consultants help. Delerium? Will schedule low-dose Haldol IV to see if there is any improvement. If none- will need to change back to PRN. Continue scheduled APAP HI for pain control. Continue antibiotics- afebrile. He is pancytopenic- may need peripheral smear if persists. May need to change Zosyn to alternative medications. Hypernatremia has resolved, but he still appears a bit dry. Will add supplemental IVF. Elevated BUN may indicate that we need to decrease the AA/Protein in the TPN. Pharmacy consulted for TPN management. Consider placing Dubhoff and starting TF. Still has significant stool in rectum. Could consider repeating CT of the pelvis with rectal contrast if persists. Monitor BP, as it is trending up. Overall, remains ill. He continues to be deemed high risk given severity of illness and complexity. 05/12/17 No appreciable improvement with recent addition of scheduled Haldol. Will order EEG. Will need to discuss Dobbhoff placement with family (rather than PPN). Dr. Whitlock discussed this with Mrs. Barron yesterday and she was agreeable to Dobbhoff placement. BUN decreasing with addition of fluids (1/2 NS) yesterday - will continue for now. Urine is tea colored but he's had adequate urine output. Continue Zosyn for scrotal abscess. Platelet count is rebounding slightly (up to 62) since stopping Cefepime; could consider peripheral smear. Today is day # [address] of abx. Successfully reached Dr. Rojas (he is on vacation). He simply wants to have wound RN continue to see him and address the wound (Amber RN recommends packing the wound daily). He will be back in [place] on Friday. Plan - 05/13/17 Patient just completed EEG with results pending. Nursing reports that the patient has been awake and confused with some restlessness this morning. Haldol was changed to Q6H PRN as opposed to scheduled to minimize sedation effect from Haldol. Continue to monitor closely and provide safe and supportive environment. Patient's daughter, Kala, whom is the DPOA requests that prior to any new medication or Ativan, that she be contracted. Patient is not to received Ativan without discussing with her first (her number is on the board in the patient's room). Dobbhof was placed on 05/12 and the patient subsequently removed it on more than one occasion throughout the night. PPN was discontinued on 05/12/17. Will have speech continue to work with patient. May need to consider PEG placement. Will discuss with Dr. Sands and family. Labs today revealed new pancytopenia with WBC decreased to 4.3, Hgb stable at 8.7 and Plt slightly improved to 67. Will continue to monitor closely. New hypokalemia noted with potassium at 3.5. Will give KCl 20 mEq po and continue to monitor closely on telemetry. Sodium stable at 138. Slight increase in SCr to 1.6 and weight noted to be trending up. Will decrease 1/2NS to 50cc/hr and continue to monitor renal function closely. Monitor urinary output closely. Continue Zosyn for scrotal abscess. Platelet count is rebounding slightly (up to 67) since stopping Cefepime; could consider peripheral smear. Today is day # [address] Rojas requests to have wound RN continue to see him and address the wound (Amber RN recommends packing the wound daily). He will be back in [place] on Friday. Will continue daily packings. 05/14/17 EEG was completed yesterday- Spoke with Dr Cruz's nurse and he will read it. Dr. Rojas reports wound looks good and is healing fine. He has no further plans for surgical intervention and does not need to follow him in outpatient setting. Continue with current wound dressing changes Overall labs are stable, Hgb stable 9.2. PLT count improving to 75. Was evaluated by speech therapy yesterday who recommended pureed with nectar thick liquids Patient's daughter, Kala, whom is the DPOA requests that prior to any new medication or Ativan, that she be contracted. Patient is not to received Ativan without discussing with her first (her number is on the board in the patient's room). Will speak with family regarding discharge plans Will discuss with attending, Dr Sands 05/15/17 Overall medically stable Reviewed speech therapy recommendations from evaluation done yesterday. They did recommend upgrading diet to pureed with nectar thick liquids It is reported. Patient 75% of breakfast Scrotal wound is evaluated by Dr. Rojas who recommends continuing daily wound dressing changes until wound closes. No need for further follow-up Discussed case with case management, looking for discharge placement. Will discuss with attending, Dr Sands Patient's daughter, Kala, whom is the DPOA requests that prior to any new medication or Ativan, that she be contracted. Patient is not to received Ativan without discussing with her first (her number is on the board in the patient's room). 05/16/17-discharge Mr Barron is seen and examined today prior to discharge. He is much more alert and converses in sentences, this is the best his mentation has been since admission. Discharge plans discussed with urologist, Dr. Rojas. He recommends discontinuing antibiotics. This patient has had sufficient coverage. Bailey catheter has been removed. Will be sure that patient can void prior to discharge. Will recommend continuing daily dressing changes to scrotum. This is been evaluated by wound care and appears to be healing well without difficulty. Discharge plan is to be admitted to [facility] for skilled rehabilitation. This patient will benefit from continued speech therapy given his dysphasia, physical therapy and occupational therapy for strengthening. Discharge plans were discussed with patient's and daughter at the bedside last evening. Patient is instructed to follow-up with PCP, Dr. marcum in one week. Will need INR at that time. Addendum by Dr. Sands: Seen and examined patient on same day as the above note. Agree with summary note , physical exam, assessment and discharge plan. Comprehensive physical findings correlate to the above note. Documented on Dragon speech to text. Efforts to correct speech recognition errors performed, but variation may exist Time spent with patient: discharge greater than 30 minutes Resuscitation Status: Do Not Resuscitate Discharge Plan - Discharge Disposition Disposition: 03 To U Not [facility] ([place]NF) *Condition: Stable Reason For Visit (Visit label in EMR): Hypernatremia - Discharge Medications *Discharge Medications: New Warfarin [Coumadin] 2 mg PO NOON #30 tab Acetaminophen [Tylenol] 500 mg PO Q4H tab Lidocaine 5% Patch [Lidoderm] 1 patch TOP DAILY patch Continue Omeprazole Magnesium [Prilosec Otc] 20 mg PO DAILY #0 Calcium 500 + D [Os Jose-D 500] 2 tab PO DAILY Potassium Chloride 10 meq PO DAILY Docusate Calcium 240 mg PO BID #0 Calcium Polycarbophil [Fiber Lax] 625 mg PO BID #0 Amlodipine [Norvasc] 10 mg PO DAILY Ascorbic Acid [Vitamin C] 1,000 mg PO DAILY Lysine HCl [l-Lysine] 500 mg PO 4XW Discontinued Triamterene/Hydrochlorothiazid [Maxzide 37.5 mg-25 mg Tablet] 2 tab PO DAILY #0 Warfarin Sodium 3 mg PO 2XW #0 Tramadol HCl [Ultram] 50 mg PO BID Warfarin Sodium 2 mg PO 5XW #0 - Discharge Packet/Instructions *Diet: Pured diet with syrup thick liquids *Activity: Activity as tolerated *Pain Management/Treatment: Scheduled Tylenol for pain. Recommend Avoiding Ativan or narcotics *Wound Care: Scrotal dressing changes daily *Expected Signs/Symptoms: Continued improvement in scrotal wound *Notify Physician if: Fevers, chills, chest pain, short of breath or other concerning symptoms *During Business Hours Contact: Contact PCP , Dr. Billings *After Business Hours Contact: Page on-call physician for Dr. marcum *Pending Lab/Results: No Pending Lab - Referrals/Follow Up *Referrals/Follow Up: Robert Billings MD [Family Provider] - 1 Week (Please follow-up with Dr. Billings.) - Patient Handouts Patient Handouts: Hypernatremia (GEN) - Dismissal Complete Discharge Instructions are:: Complete Physician Narrative - Narrative Attestation Narrative: Date: 05/16/17 Time: [id number]
[2017-05-16 13:39] VITALS: BP 153/71; PULSE 85; RESP 18; TEMP 97.5; O2SAT 100
[2017-05-16] MEDS ORDERED: PIPERACILLIN/TAZOBACTAM 2.25 GM in NS 50 ML IV SCH (16:00)
== END 2017-05-16 15:10 | DRG 981 ==
LOC: ED 12:08 → SUATTDRO 15:07 → MED 15:07
PROVIDERS: ADMIT Hospitalist; ATTEND Family Medicine